=== PATIENT | male | born 1955 | race Caucasian/White ===

== ENCOUNTER 2018-03-11 11:29 | Inpatient (IN) | payer OTHER, MEDICARE ==
[2018-03-11 12:16] LABS: Glucose,Whole Blood 99 mg/dL (75-99)
[2018-03-11 12:33] LABS: Appearance,Urine Cloudy (Clear); Bilirubin,Urine Negative (Negative); Blood,Urine Small (Negative); Color,Urine Yellow; Glucose,Urine (UA) 4+ (Negative); Ketones,Urine Negative (Negative); Leukocyte Esterase,Urine Large (Negative); Mucus,Urine Rare /hpf; Nitrite,Urine Negative (Negative); Protein,Urine Negative (Negative); RBC,Urine 3 /hpf (0-5); Specific Gravity,Urine 1.008 (1.001-1.035); Urobilinogen,Urine <2.0 mg/dL (<2.0); WBC,Urine >182 /hpf (0-5)
[2018-03-11] MEDS ORDERED: VANCOMYCIN IV PER PHARMACY 1 EACH MISC MISCELLANE PRN (12:49)
[2018-03-11] MEDS ORDERED: VANCOMYCIN 2,250 MG in SODIUM CHLORIDE 0.9% 500 ML IVPB STA (13:00)
[2018-03-11] MEDS ORDERED: AMPICILLIN-SULBACTAM 3 GM in SODIUM CHLORIDE 0.9% 100 ML IVPB STA (13:03)
--- NOTE | 2018-03-11 13:30 | ED ---
General Adult HPI - General Chief complaint: Recheck/Abnormal Lab/Rx Stated complaint: High Blood sugar, poss infection in leg Time Seen by Provider: 03/11/18 12:33 Source: patient Mode of arrival: wheelchair Limitations: no limitations - History of Present Illness Initial comments: This 63-year-old white male presents with several complaints. He states that his blood sugar has been running high recently and was in the 300s for the past several days. Today, it was 478. He did take his home insulin with a sliding scale and it has come down by the time he arrives to the emergency department. He also relates that he has been having leg swelling and redness bilaterally but much worse on the left side. He relates that this is been a problem over the past 2 months but significantly worse over the past 3 days. This is been losing a yellowish drainage. He has significant leg swelling as well. He also complains of having a sore under his right axilla over the past 5 days but this started draining a couple of days ago. Denies any fevers but has had some chills. He denies any chest pain, shortness of breath, or abdominal pain. He denies any other complaints or modifying factors. - Related Data Home Medications Medication Instructions Recorded Confirmed ARIPiprazole [Abilify] 2.5 mg PO HS 08/03/15 03/11/18 Ibuprofen [Motrin] 600 mg PO TID 08/03/15 03/11/18 Insulin Aspart [NovoLOG] 30 unit SQ AC-TID 08/03/15 03/11/18 Lisinopril [Zestril] 20 mg PO BID 08/03/15 03/11/18 buPROPion HCL [Wellbutrin] 100 mg PO BID 08/03/15 03/11/18 Atorvastatin [Lipitor] 20 mg PO HS 03/11/18 03/11/18 Gabapentin [Neurontin] 300 mg PO TID 03/11/18 03/11/18 Insulin Glargine [Lantus] 55 unit SQ DAILY 03/11/18 03/11/18 Latanoprost [Xalatan 0.005%] 1 drop BOTH EYES HS 03/11/18 03/11/18 Lidocaine 5% Patch [Lidoderm] 1 patch TOPICAL DAILY 03/11/18 03/11/18 Oxybutynin Chloride [Ditropan XL] 5 mg PO DAILY 03/11/18 03/11/18 Potassium Chloride [K-Tab ER] 10 meq PO DAILY 03/11/18 03/11/18 Terazosin [Hytrin] 2 mg PO HS 03/11/18 03/11/18 Allergies Allergy/AdvReac Type Severity Reaction Status Date / Time metformin Allergy Unknown Abdominal Verified 03/11/18 14:17 Pain and Nausea metformin HCl Allergy Unknown Abdominal Verified 03/11/18 14:17 [From Glucophage] Pain and Nausea Review of Systems ROS Statement: Those systems with pertinent positive or pertinent negative responses have been documented in the HPI. ROS Other: All systems not noted in ROS Statement are negative. Past Medical History Past Medical History: Cancer, Diabetes Mellitus, GERD/Reflux, Hypertension Additional Past Medical History / Comment(s): CHRONIC LYMPHOCYTIC LEUKEMIA, BACK AND HIP PAIN, FREQUENT URINATION, OCCASIONAL SOB., HAVING DIARRHEA. History of Any Multi-Drug Resistant Organisms: None Reported Past Surgical History: Joint Replacement Additional Past Surgical History / Comment(s): TOTAL LEFT HIP. Past Anesthesia/Blood Transfusion Reactions: No Reported Reaction Past Psychological History: Depression Smoking Status: Current some day smoker Past Alcohol Use History: Rare Past Drug Use History: Marijuana - Past Family History Mother Family Medical History: No Reported History General Exam - General Exam Comments Initial Comments: GENERAL: The patient is well nourished and well hydrated. VITAL SIGNS: Heart rate, blood pressure, respiratory rate reviewed as recorded in nurse's notes. EYES: Pupils are round and reactive. Extraocular movements are intact. No conjunctival / lid redness or swelling. ENT: No external evidence of injury, swelling, or ecchymosis. Airway is patent. Throat is clear. NECK: Nontender. No swelling or evidence of injury. No subcutaneous emphysema. Trachea is midline. No thyroid mass. HEART: Regular rate and rhythm. Good peripheral pulses. Bilateral lower extremity edema noted. LUNGS/CHEST: Breath sounds clear and equal bilaterally. No rales, rhonchi, or wheezes. No ecchymosis, subcutaneous emphysema, or tenderness. ABDOMEN: Abdomen soft without tenderness. No palpable masses or organomegaly. No peritoneal signs. No abdominal wall swelling or ecchymosis. EXTREMITIES: No extremity tenderness. Normal muscle tone and function. No thoracolumbar tenderness. NEUROLOGIC: Sensation is grossly intact. Cranial nerve exam reveals face is symmetrical, tongue is midline, speech is clear. SKIN: There is significant swelling noted to bilateral lower extremities. There is significant erythema with yellowish drainage noted from the mid tibia distally into the ankle on the left leg. There is several small ulcerative lesions noted to the lateral legs. There is only mild erythema noted to the right leg. There is also a slightly draining lesion noted to the right axillary area. There is no swelling identified. There is only minimal erythema. PSYCHIATRIC: Alert and oriented. Appropriate behavior and judgment. Limitations: no limitations Course Vital Signs 03/11/18 03/11/18 12:10 14:45 Temperature 98.1 F Pulse Rate 88 77 Respiratory 20 18 Rate Blood Pressure 121/68 122/61 O2 Sat by Pulse 99 96 Oximetry Medical Decision Making - Medical Decision Making The patient was seen and examined. All diagnostics are reviewed. An IV is started and he is given some Unasyn and vancomycin. It does appear that he has cellulitis of his left lower extremity which is fairly significant and to a lesser degree on the right lower extremity. It is felt as though he would require inpatient treatment with IV antibiotics in this regard. The laboratory does show significant leukocytosis however he states that this is normal for him as he does have chronic lymphocytic leukemia. He is not currently in a treatment stage IV it. He said that white blood cell count of 38,000 is at the low end of normal for him. The case is discussed with Sandro from internal medicine and the patient is accepted for admission. IV antibiotics will be continued. It also appears that he does have urinary tract infection. It appears that he has very slight draining abscess of the right axillary region and it is not felt as any further treatment is necessary in this regard. - Lab Data Result diagrams: 03/11/18 13:25 03/11/18 13:25 Lab Results 03/11/18 03/11/18 03/11/18 Range/Units 12:12 12:15 13:25 WBC 38.2 H* (3.8-10.6) k/uL RBC 4.24 L (4.30-5.90) m/uL Hgb 13.0 (13.0-17.5) gm/dL Hct 38.2 L (39.0-53.0) % MCV 90.1 (80.0-100.0) fL MCH 30.7 (25.0-35.0) pg MCHC 34.1 (31.0-37.0) g/dL RDW 14.5 (11.5-15.5) % Plt Count 161 (150-450) k/uL Neutrophils % (Manual) 4 % Band Neutrophils % 1 % Lymphocytes % (Manual) 96 % Neutrophils # (Manual) 1.90 (1.3-7.7) k/uL Lymphocytes # (Manual) 36.67 H (1.0-4.8) k/uL Nucleated RBCs 0 (0-0) /100 WBC Differential Comment Manual Slide Review Performed PT (9.0-12.0) sec INR (<1.2) APTT (22.0-30.0) sec Sodium (137-145) mmol/L Potassium (3.5-5.1) mmol/L Chloride (98-107) mmol/L Carbon Dioxide (22-30) mmol/L Anion Gap mmol/L BUN (9-20) mg/dL Creatinine (0.66-1.25) mg/dL Est GFR (CKD-EPI)AfAm (>60 ml/min/1.73 sqM) Est GFR (CKD-EPI)NonAf (>60 ml/min/1.73 sqM) Glucose (74-99) mg/dL POC Glucose (mg/dL) 99 (75-99) mg/dL POC Glu Software Configuration Manager ID Jesu Rolle Plasma Lactic Acid Hans (0.7-2.0) mmol/L Calcium (8.4-10.2) mg/dL Phosphorus (2.5-4.5) mg/dL Magnesium (1.6-2.3) mg/dL Total Bilirubin (0.2-1.3) mg/dL AST (17-59) U/L ALT (21-72) U/L Alkaline Phosphatase (38-126) U/L Troponin I (0.000-0.034) ng/mL Total Protein (6.3-8.2) g/dL Albumin (3.5-5.0) g/dL Urine Color Yellow Urine Appearance Cloudy (Clear) Urine pH 5.0 (5.0-8.0) Ur Specific Cora 1.008 (1.001-1.035) Urine Protein Negative (Negative) Urine Glucose (UA) 4+ H (Negative) Urine Ketones Negative (Negative) Urine Blood Small H (Negative) Urine Nitrite Negative (Negative) Urine Bilirubin Negative (Negative) Urine Urobilinogen <2.0 (<2.0) mg/dL Ur Leukocyte Esterase Large H (Negative) Urine RBC 3 (0-5) /hpf Urine WBC >182 H (0-5) /hpf Urine WBC Clumps Many H (None) /hpf Urine Mucus Rare H (None) /hpf Acetone, Qual (Negative) 03/11/18 03/11/18 03/11/18 Range/Units 13:25 13:25 13:25 WBC (3.8-10.6) k/uL RBC (4.30-5.90) m/uL Hgb (13.0-17.5) gm/dL Hct (39.0-53.0) % MCV (80.0-100.0) fL MCH (25.0-35.0) pg MCHC (31.0-37.0) g/dL RDW (11.5-15.5) % Plt Count (150-450) k/uL Neutrophils % (Manual) % Band Neutrophils % % Lymphocytes % (Manual) % Neutrophils # (Manual) (1.3-7.7) k/uL Lymphocytes # (Manual) (1.0-4.8) k/uL Nucleated RBCs (0-0) /100 WBC Differential Comment Manual Slide Review PT 10.4 (9.0-12.0) sec INR 1.1 (<1.2) APTT 22.8 (22.0-30.0) sec Sodium 138 (137-145) mmol/L Potassium 3.7 (3.5-5.1) mmol/L Chloride 104 (98-107) mmol/L Carbon Dioxide 24 (22-30) mmol/L Anion Gap 10 mmol/L BUN 28 H (9-20) mg/dL Creatinine 1.00 (0.66-1.25) mg/dL Est GFR (CKD-EPI)AfAm >90 (>60 ml/min/1.73 sqM) Est GFR (CKD-EPI)NonAf 80 (>60 ml/min/1.73 sqM) Glucose 101 H (74-99) mg/dL POC Glucose (mg/dL) (75-99) mg/dL POC Glu Software Configuration Manager ID Plasma Lactic Acid Hans 1.7 (0.7-2.0) mmol/L Calcium 8.9 (8.4-10.2) mg/dL Phosphorus 3.4 (2.5-4.5) mg/dL Magnesium 1.9 (1.6-2.3) mg/dL Total Bilirubin 0.9 (0.2-1.3) mg/dL AST 41 (17-59) U/L ALT 57 (21-72) U/L Alkaline Phosphatase 109 (38-126) U/L Troponin I (0.000-0.034) ng/mL Total Protein 5.5 L (6.3-8.2) g/dL Albumin 3.3 L (3.5-5.0) g/dL Urine Color Urine Appearance (Clear) Urine pH (5.0-8.0) Ur Specific Cora (1.001-1.035) Urine Protein (Negative) Urine Glucose (UA) (Negative) Urine Ketones (Negative) Urine Blood (Negative) Urine Nitrite (Negative) Urine Bilirubin (Negative) Urine Urobilinogen (<2.0) mg/dL Ur Leukocyte Esterase (Negative) Urine RBC (0-5) /hpf Urine WBC (0-5) /hpf Urine WBC Clumps (None) /hpf Urine Mucus (None) /hpf Acetone, Qual Negative (Negative) 03/11/18 Range/Units 13:25 WBC (3.8-10.6) k/uL RBC (4.30-5.90) m/uL Hgb (13.0-17.5) gm/dL Hct (39.0-53.0) % MCV (80.0-100.0) fL MCH (25.0-35.0) pg MCHC (31.0-37.0) g/dL RDW (11.5-15.5) % Plt Count (150-450) k/uL Neutrophils % (Manual) % Band Neutrophils % % Lymphocytes % (Manual) % Neutrophils # (Manual) (1.3-7.7) k/uL Lymphocytes # (Manual) (1.0-4.8) k/uL Nucleated RBCs (0-0) /100 WBC Differential Comment Manual Slide Review PT (9.0-12.0) sec INR (<1.2) APTT (22.0-30.0) sec Sodium (137-145) mmol/L Potassium (3.5-5.1) mmol/L Chloride (98-107) mmol/L Carbon Dioxide (22-30) mmol/L Anion Gap mmol/L BUN (9-20) mg/dL Creatinine (0.66-1.25) mg/dL Est GFR (CKD-EPI)AfAm (>60 ml/min/1.73 sqM) Est GFR (CKD-EPI)NonAf (>60 ml/min/1.73 sqM) Glucose (74-99) mg/dL POC Glucose (mg/dL) (75-99) mg/dL POC Glu Software Configuration Manager ID Plasma Lactic Acid Hans (0.7-2.0) mmol/L Calcium (8.4-10.2) mg/dL Phosphorus (2.5-4.5) mg/dL Magnesium (1.6-2.3) mg/dL Total Bilirubin (0.2-1.3) mg/dL AST (17-59) U/L ALT (21-72) U/L Alkaline Phosphatase (38-126) U/L Troponin I <0.012 (0.000-0.034) ng/mL Total Protein (6.3-8.2) g/dL Albumin (3.5-5.0) g/dL Urine Color Urine Appearance (Clear) Urine pH (5.0-8.0) Ur Specific Cora (1.001-1.035) Urine Protein (Negative) Urine Glucose (UA) (Negative) Urine Ketones (Negative) Urine Blood (Negative) Urine Nitrite (Negative) Urine Bilirubin (Negative) Urine Urobilinogen (<2.0) mg/dL Ur Leukocyte Esterase (Negative) Urine RBC (0-5) /hpf Urine WBC (0-5) /hpf Urine WBC Clumps (None) /hpf Urine Mucus (None) /hpf Acetone, Qual (Negative) Disposition Clinical Impression: Bilateral lower leg cellulitis, Hyperglycemia, Diabetes, UTI (urinary tract infection), Chronic lymphocytic leukemia, Abscess of right axilla Disposition: ADMITTED IP TO THIS HOSP Condition: Fair Is patient prescribed a controlled substance at d/c from ED?: No Referrals: [facility] [Primary Care Provider] - 1-2 days Time of Disposition: 15:17 Decision Date: 03/11/18 Decision Time: 15:17
[2018-03-11 13:51] LABS: HCT 38.2 % (39.0-53.0); MCH 30.7 pg (25.0-35.0); MCHC 34.1 g/dL (31.0-37.0); MCV 90.1 fL (80.0-100.0); Mean Platelet Volume 7.1; Platelet Count 161 k/uL (150-450); RBC 4.24 m/uL (4.30-5.90); RDW 14.5 % (11.5-15.5)
[2018-03-11 13:54] LABS: WBC 38.2 k/uL (3.8-10.6)
[2018-03-11 13:55] LABS: ALT 57 U/L (21-72); AST 41 U/L (17-59); Albumin 3.3 g/dL (3.5-5.0); Alkaline Phosphatase 109 U/L (38-126); Anion Gap 10 mmol/L; Blood Urea Nitrogen 28 mg/dL (9-20); Calcium 8.9 mg/dL (8.4-10.2); Carbon Dioxide 24 mmol/L (22-30); Chloride 104 mmol/L (98-107); Glucose 101 mg/dL (74-99); Magnesium 1.9 mg/dL (1.6-2.3); Phosphorus 3.4 mg/dL (2.5-4.5); Potassium 3.7 mmol/L (3.5-5.1); Sodium 138 mmol/L (137-145); Total Bilirubin 0.9 mg/dL (0.2-1.3); Total Protein 5.5 g/dL (6.3-8.2)
[2018-03-11 13:57] LABS: INR 1.1 (<1.2); Partial Thromboplastin Time 22.8 sec (22.0-30.0); Prothrombin Time 10.4 sec (9.0-12.0)
[2018-03-11 14:16] LABS: Band Neutrophils % 1 %; Lymphocytes # (M) 36.67 k/uL (1.0-4.8); Neutrophils % (M) 4 %; Nucleated Red Blood Cells 0 /100 WBC (0-0); Total Cells Counted 200
[2018-03-11] MEDS ORDERED: ACETAMINOPHEN TAB 325 MG TAB PO PRN (15:17)
[2018-03-11] MEDS ORDERED: ONDANSETRON 4 MG/2 ML VIAL IVP PRN (15:17)
[2018-03-11] MEDS ORDERED: NALOXONE 0.4 MG/ML 1 ML VIAL IV PRN (15:17)
[2018-03-11 16:37] VITALS: BMI 46.5
[2018-03-11] MEDS: GABAPENTIN 300 MG CAP PO SCH ×2 (16:49→22:28)
[2018-03-11 17:29] LABS: Glucose,Whole Blood 214 mg/dL (75-99)
[2018-03-11] MEDS ORDERED: INSULIN ASPART 100 UNIT/ML 1 ML 10 ML VIAL SQ SCH (17:30)
[2018-03-11] MEDS: AMPICILLIN-SULBACTAM 3 GM in SODIUM CHLORIDE 0.9% 100 ML IVPB SCH ×2 (17:38→23:01)
[2018-03-11] MEDS: IBUPROFEN 600 MG TAB PO SCH ×3 (17:39→22:32)
[2018-03-11 22:19] LABS: Glucose,Whole Blood 252 mg/dL (75-99)
[2018-03-11] MEDS: LISINOPRIL 20 MG TAB PO SCH (22:27)
[2018-03-11] MEDS: ATORVASTATIN 20 MG TAB PO SCH (22:27)
[2018-03-11] MEDS: DOXAZOSIN 2 MG TAB PO SCH (22:27)
[2018-03-11] MEDS: ARIPiprazole 5 MG TAB PO SCH (22:27)
[2018-03-11] MEDS: buPROPion 100 MG TAB PO SCH (22:28)
[2018-03-11] MEDS: LATANOPROST 0.005% OPHTH DROPS 2.5 ML BTL BOTH EYES SCH (22:31)
[2018-03-11] MEDS ORDERED: INSULIN ASPART 100 UNIT/ML 1 ML 10 ML VIAL SQ ONE (22:43)
[2018-03-12] MEDS ORDERED: ALPRAZolam 0.25 MG TAB PO PRN (01:16)
[2018-03-12] MEDS ORDERED: TEMAZEPAM 15 MG CAP PO PRN (01:16)
--- NOTE | 2018-03-12 04:15 | HP ---
HISTORY AND PHYSICAL DATE OF SERVICE: 03/11/2018. CHIEF COMPLAINT: Bilateral leg ulcers. HISTORY OF PRESENT ILLNESS: This 63-year-old gentleman with a past medical history of multiple medical problems including diabetes, GERD, hypertension, chronic lymphoid leukemia, being followed by Dr. Escobar in the [facility] in the outpatient setting, was complaining of bilateral legs ulcers, left more than right for the last several weeks. The patient initially had blisters and subsequently got worse. The patient also noted to have a draining abscess in the right axilla and the patient also having uncontrolled diabetes mellitus. Sugars were uncontrolled and hemoglobin A1c was 7 9. The patient came to [facility] and admitted for further evaluation and treatment. The white count was elevated at 38.9 indicating chronic lymphatic leukemia. There is no history of fever, rigors. No history of headache, loss of consciousness, seizures. Patient also had features of UTI also. PAST MEDICAL HISTORY: History of diabetes type 2, GERD, hypertension, sleep apnea, history of chronic lymphocytic leukemia, history of DJD, history of depression. MEDICATIONS: Prior to admission include home medications are: 1. Wellbutrin 100 mg p.o. b.i.d. 2. Hytrin 2 mg q.h.s. 3. Potassium chloride 10 mg p.o. daily. 4. Ditropan XL 5 mg p.o. 5. Zestril 20 mg p.o. b.i.d. 6. Lidoderm patch 5% 1.5 daily. 7. Xalatan 0.05% 1 drop both eyes q.h.s. 8. Lantus 55 units subcu daily. 9. NovoLog 30 units subcu a.c. t.i.d. 10.Motrin 600 mg t.i.d. 11.Neurontin 300 mg t.i.d. 12.Lipitor 20 mg q.h.s. 13.Abilify 2.5 mg q.h.s. ALLERGIES: METFORMIN. FAMILY HISTORY: History of hypertension in the family. SOCIAL HISTORY: Previous history of smoking. Patient THC. REVIEW OF SYSTEMS: ENT: No diminished hearing or vision. CARDIOVASCULAR: No angina or palpitations. RESPIRATORY: No cough or hemoptysis. GI: No nausea or vomiting. no dysuria or retention. Nervous system: No numbness or weakness. ALLERGY: No asthma or hay fever. MUSCULOSKELETAL: As mentioned earlier. HEMATOLOGY/ONCOLOGY: No history of anemia. ENDOCRINE: Diabetes. CONSTITUTIONAL: As mentioned earlier. DERMATOLOGY negative. RHEUMATOLOGY: Negative. PSYCHIATRY as mentioned earlier. PHYSICAL EXAMINATION: GENERAL: The patient is alert and oriented times three. VITAL SIGNS: Pulse is 92, blood pressure 137/73, respiration 18, temperature 97.7, pulse ox 97% on room air. HEENT: Conjunctivae normal. Oral mucosa moist. NECK is obese. CARDIOVASCULAR: S1, S2 muffled. No S3, no S4. RESPIRATORY: Breath sounds diminished in the bases. A few scattered rhonchi. No crackles. ABDOMEN: Soft, obese, nontender. No mass. LEGS: Significant cellulitis and erythema cellulitis present discharge draining on the left side. Minimal cellulitis of the right leg. Significant abscess in the right axilla draining purulent discharge also present. NERVOUS SYSTEM: Higher functions as mentioned earlier. Moves all four extremities. No focal motor or sensory deficits. Lymphatics: No lymph nodes palpable in the neck, axillae or groin. Skin: No ulcer, rashes or bleeding. LABS: WBC is 38.9. hemoglobin 13, glucose 214. ASSESSMENT: 1. Acute left leg cellulitis and as well as right axillary abscess. 2. Diabetes type 2 uncontrolled. 3. Chronic lymphoid leukemia. 4. Urinary tract infection. 5. Obesity with body mass index 46.5. 6. Gastroesophageal reflux disease. 7. Hypertension. 8. Sleep apnea on CPAP. 9. Degenerative joint disease. 10.History of depression. 11.Remote history of nicotine dependence. RECOMMENDATIONS AND DISCUSSION: This 63-year-old gentleman who presented with multiple complex medical issues, we will monitor the patient closely, continue the current medications, management and symptomatic treatment. We will initiate broad-spectrum IV antibiotics. IV Zosyn and vancomycin will be given. Otherwise, monitor blood sugars closely. Mealtime insulin also will be added. DVT prophylaxis. Resume the home medications. Prognosis guarded because of multiple complex medical issues. Discussed at length with patient and further recommendations to follow. We will closely follow with Infectious Disease. A copy of dictation forwarded to Dr. Escobar who is the primary physician. MMODL / IJN: [id number] /
[2018-03-12] MEDS: VANCOMYCIN 2,000 MG in SODIUM CHLORIDE 0.9% 500 ML IVPB SCH ×2 (05:20→17:46)
[2018-03-12 07:21] LABS: Glucose,Whole Blood 203 mg/dL (75-99)
[2018-03-12] MEDS ORDERED: INSULIN ASPART 100 UNIT/ML 1 ML 10 ML VIAL SQ SCH (07:30)
[2018-03-12] MEDS: INSULIN DETEMIR 100 UNIT/ML 10 ML VIAL SQ SCH (08:04)
[2018-03-12] MEDS: INSULIN ASPART 100 UNIT/ML 1 ML 10 ML VIAL SQ SCH ×6 (08:05→21:15)
[2018-03-12] MEDS: PIPERACILLIN-TAZOBACTAM 3.375 GM in DEXTROSE/WATER 1 50ML.BAG IVPB SCH ×3 (08:06→23:24)
[2018-03-12] MEDS: LIDOCAINE 5% PATCH TOPICAL SCH (08:09)
[2018-03-12] MEDS: ENOXAPARIN 40 MG/0.4 ML SYRINGE SQ SCH (08:10)
[2018-03-12] MEDS: GABAPENTIN 300 MG CAP PO SCH ×3 (08:11→21:15)
[2018-03-12] MEDS: buPROPion 100 MG TAB PO SCH ×2 (08:11→21:15)
[2018-03-12] MEDS: LISINOPRIL 20 MG TAB PO SCH ×2 (08:12→21:15)
[2018-03-12] MEDS: OXYBUTYNIN XL 5 MG TAB.ER.24 PO SCH (08:12)
[2018-03-12] MEDS: POTASSIUM CHLORIDE ER 10 MEQ TAB.ER.PRT PO SCH (08:12)
[2018-03-12] MEDS: IBUPROFEN 600 MG TAB PO SCH ×3 (08:30→21:15)
[2018-03-12] MEDS ORDERED: PANTOPRAZOLE 40 MG/10 ML VIAL IV SCH (09:00)
[2018-03-12 12:03] LABS: Glucose,Whole Blood 260 mg/dL (75-99)
[2018-03-12 12:29] LABS: Hemoglobin A1C 10.9 % (4.0-6.0)
--- NOTE | 2018-03-12 13:45 | P.GSCN ---
<Louise Cornejo - Last Filed: 03/12/18 14:08> History of Present Illness Consult date: 03/12/18 Reason for Consult: Left axillary questionable abscess History of present illness: 63-year-old male who presented on day admission to the emergency room to be evaluated for symptomatic hypoglycemia. Additionally patient had reportedly been experiencing increase edema to the bilateral lower legs left greater than the right. Patient has multiple medical issues. Indicated that he did develop a sore under right axilla noted 5 days prior. Stated that he noted over the last 48 hours became more tender and started draining. The attending has requested a surgical eval for the right axilla possible abscess. Patient has been seen by infectious disease dr bustamante . Which has obtained wound cultures to the right axilla. Patient denies any prior episodes. Patient stated he became concerned when the area became more tender and started draining "yellowish drainage slight odor. Patient came into the emergency room initially with an elevated blood sugar. Patient stated at home he checked his blood sugar was 478 took his morning dose of insulin blood sugar came down when he arrived emergency room . Patient states his blood sugars have been fairly controlled hemoglobin A1c this admission was noted to be 10.9 Past medical history for chronic lymphocytic leukemia, chronic low her hip and back pain, depressive disorder, type 2 diabetes insulin requiring, obstructive sleep apnea with CPAP therapy Past surgical history left total hip otherwise unremarkable every day smoker Past Medical History Past Medical History: Cancer, Diabetes Mellitus, GERD/Reflux, Hypertension, Sleep Apnea/CPAP/BIPAP Additional Past Medical History / Comment(s): CHRONIC LYMPHOCYTIC LEUKEMIA, BACK AND HIP PAIN, FREQUENT URINATION, OCCASIONAL SOB., HAVING DIARRHEA. Patient uses CPAP History of Any Multi-Drug Resistant Organisms: None Reported Past Surgical History: Joint Replacement Additional Past Surgical History / Comment(s): TOTAL LEFT HIP. Past Anesthesia/Blood Transfusion Reactions: No Reported Reaction Past Psychological History: Depression Additional Psychological History / Comment(s): patient lives at home alone Smoking Status: Former smoker Past Alcohol Use History: Rare Additional Past Alcohol Use History / Comment(s): SMOKES 3-5 CIGARETTES PER WEEK. STARTED SMOKING AGE 16. Past Drug Use History: Marijuana Additional Drug Use History / Comment(s): STATES LAST SMOKED MARIJUANA 1 WEEK AGO. STATES MARIJUANA CARD - Past Family History Mother Family Medical History: Hypertension Medications and Allergies Home Medications Medication Instructions Recorded Confirmed Type ARIPiprazole [Abilify] 2.5 mg PO HS 08/03/15 03/11/18 History Ibuprofen [Motrin] 600 mg PO TID 08/03/15 03/11/18 History Insulin Aspart [NovoLOG] 30 unit SQ AC-TID 08/03/15 03/11/18 History Lisinopril [Zestril] 20 mg PO BID 08/03/15 03/11/18 History buPROPion HCL [Wellbutrin] 100 mg PO BID 08/03/15 03/11/18 History Atorvastatin [Lipitor] 20 mg PO HS 03/11/18 03/11/18 History Gabapentin [Neurontin] 300 mg PO TID 03/11/18 03/11/18 History Insulin Glargine [Lantus] 55 unit SQ DAILY 03/11/18 03/11/18 History Latanoprost [Xalatan 0.005%] 1 drop BOTH EYES HS 03/11/18 03/11/18 History Lidocaine 5% Patch [Lidoderm] 1 patch TOPICAL DAILY 03/11/18 03/11/18 History Oxybutynin Chloride [Ditropan XL] 5 mg PO DAILY 03/11/18 03/11/18 History Potassium Chloride [K-Tab ER] 10 meq PO DAILY 03/11/18 03/11/18 History Terazosin [Hytrin] 2 mg PO HS 03/11/18 03/11/18 History Allergies Allergy/AdvReac Type Severity Reaction Status Date / Time metformin Allergy Unknown Abdominal Verified 03/11/18 14:17 Pain and Nausea metformin HCl Allergy Unknown Abdominal Verified 03/11/18 14:17 [From Glucophage] Pain and Nausea Surgical - Exam Vital Signs Temp Pulse Resp BP Pulse Ox 98.1 F 88 20 121/68 99 03/11/18 12:10 03/11/18 12:10 03/11/18 12:10 03/11/18 12:10 03/11/18 12:10 GENERAL APPEARANCE: 63 year old male obese patient is alert, oriented, in no acute distress. VITAL SIGNS: Reviewed HEENT: Head is normocephalic and atraumatic. Pupils are equal and reactive. The nares are patent. Oropharynx is clear without lesions. NECK: Supple without lymphadenopathy. Traches midline. HEART: S1, S2. Regular rate and rhythm. Denying chest pain LUNGS: No crackles or wheezes are heard. No cough no shortness of breath ABDOMEN: Soft, obese nontender, nondistended large umbilical hernia no evidence of incarceration with good bowel sounds. No peritoneal signs. No palpable organomegaly or masses. EXTREMITIES: Bilateral lower extremities positive edema noted with significant erythema noted to the right leg greater than the left. Leaking serous drainage Right axilla area draining a small amount yellowish drainage with palpitation to the area. Slight odor noted. Right axilla area red non-firm mild erythema NEUROLOGICAL: No focal deficits. Strength and sensation are grossly intact. Results - Labs 03/11/18 13:25 03/11/18 13:25 Abnormal Lab Results - Last 24 Hours (Table) 03/11/18 03/11/18 03/11/18 Range/Units 13:25 13:25 17:05 WBC 38.2 H* (3.8-10.6) k/uL RBC 4.24 L (4.30-5.90) m/uL Hct 38.2 L (39.0-53.0) % Lymphocytes # (Manual) 36.67 H (1.0-4.8) k/uL BUN 28 H (9-20) mg/dL Glucose 101 H (74-99) mg/dL POC Glucose (mg/dL) 214 H (75-99) mg/dL Total Protein 5.5 L (6.3-8.2) g/dL Albumin 3.3 L (3.5-5.0) g/dL 03/11/18 03/12/18 03/12/18 Range/Units 22:00 07:09 12:01 WBC (3.8-10.6) k/uL RBC (4.30-5.90) m/uL Hct (39.0-53.0) % Lymphocytes # (Manual) (1.0-4.8) k/uL BUN (9-20) mg/dL Glucose (74-99) mg/dL POC Glucose (mg/dL) 252 H 203 H 260 H (75-99) mg/dL Total Protein (6.3-8.2) g/dL Albumin (3.5-5.0) g/dL Microbiology - Last 24 Hours (Table) 03/12/18 01:05 Wound Culture - Preliminary Leg - Left 03/12/18 01:05 Wound Culture - Preliminary Leg - Right 03/12/18 01:05 Wound Culture - Preliminary Axilla - Right 03/11/18 13:09 Urine Culture - Preliminary Urine,Clean Catch Diabetes panel 03/11/18 Range/Units 13:25 Sodium 138 (137-145) mmol/L Potassium 3.7 (3.5-5.1) mmol/L Chloride 104 (98-107) mmol/L Carbon Dioxide 24 (22-30) mmol/L BUN 28 H (9-20) mg/dL Creatinine 1.00 (0.66-1.25) mg/dL Glucose 101 H (74-99) mg/dL Calcium 8.9 (8.4-10.2) mg/dL AST 41 (17-59) U/L ALT 57 (21-72) U/L Alkaline Phosphatase 109 (38-126) U/L Total Protein 5.5 L (6.3-8.2) g/dL Albumin 3.3 L (3.5-5.0) g/dL Calcium panel 03/11/18 Range/Units 13:25 Calcium 8.9 (8.4-10.2) mg/dL Phosphorus 3.4 (2.5-4.5) mg/dL Albumin 3.3 L (3.5-5.0) g/dL Pituitary panel 03/11/18 Range/Units 13:25 Sodium 138 (137-145) mmol/L Potassium 3.7 (3.5-5.1) mmol/L Chloride 104 (98-107) mmol/L Carbon Dioxide 24 (22-30) mmol/L BUN 28 H (9-20) mg/dL Creatinine 1.00 (0.66-1.25) mg/dL Glucose 101 H (74-99) mg/dL Calcium 8.9 (8.4-10.2) mg/dL Adrenal panel 03/11/18 Range/Units 13:25 Sodium 138 (137-145) mmol/L Potassium 3.7 (3.5-5.1) mmol/L Chloride 104 (98-107) mmol/L Carbon Dioxide 24 (22-30) mmol/L BUN 28 H (9-20) mg/dL Creatinine 1.00 (0.66-1.25) mg/dL Glucose 101 H (74-99) mg/dL Calcium 8.9 (8.4-10.2) mg/dL Total Bilirubin 0.9 (0.2-1.3) mg/dL AST 41 (17-59) U/L ALT 57 (21-72) U/L Alkaline Phosphatase 109 (38-126) U/L Total Protein 5.5 L (6.3-8.2) g/dL Albumin 3.3 L (3.5-5.0) g/dL Assessment and Plan Assessment: Impression Present on admission right axilla redness positive tenderness yellowish drainage possible abscess Morbid obesity BMI 46 Bilateral lower extremity cellulitis Present on admission hyperglycemia Presented admission leukocytosis suspect due to Chronic lymphocytic leukemia History of sleep apnea, depressive disorder Present on admission umbilical hernia suspect chronic Plan Wound care per infectious disease Follow up on the pending wound culture from the right axilla Possible incision and drainage of the right axilla after eval Dr. Nathan Antibiotics per infectious disease Further surgical recommendations pending will follow with you Surgical consultation note dictated for dr nathan The above impression and plan of care have been discussed and directed by signing physician. Louise Cornejo nurse practitioner acting as scribe for signing physician. <Fabian Nathan - Last Filed: 03/12/18 16:55> Surgical - Exam Vital Signs Temp Pulse Resp BP Pulse Ox 98.1 F 88 20 121/68 99 03/11/18 12:10 03/11/18 12:10 03/11/18 12:10 03/11/18 12:10 03/11/18 12:10 Results - Labs 03/11/18 13:25 03/11/18 13:25 Abnormal Lab Results - Last 24 Hours (Table) 03/11/18 03/11/18 03/11/18 Range/Units 13:25 17:05 22:00 POC Glucose (mg/dL) 214 H 252 H (75-99) mg/dL Hemoglobin A1c 10.9 H (4.0-6.0) % 03/12/18 03/12/18 03/12/18 Range/Units 07:09 12:01 16:37 POC Glucose (mg/dL) 203 H 260 H 207 H (75-99) mg/dL Hemoglobin A1c (4.0-6.0) % Microbiology - Last 24 Hours (Table) 03/11/18 13:25 Blood Culture - Preliminary Blood No Growth after 24 hours 08/14/18 12:00 Wound Culture - Preliminary Axilla - Right 03/12/18 12:00 Anaerobic Culture - Preliminary Axilla - Right 03/12/18 01:05 Wound Culture - Preliminary Leg - Left 03/12/18 01:05 Wound Culture - Preliminary Leg - Right 03/12/18 01:05 Wound Culture - Preliminary Axilla - Right 03/11/18 13:09 Urine Culture - Preliminary Urine,Clean Catch Diabetes panel 03/11/18 Range/Units 13:25 Hemoglobin A1c 10.9 H (4.0-6.0) % Assessment and Plan Assessment: As above. Patient within abscess right axilla that spontaneously started draining 48 hours ago. Was seen by infectious disease who using blunt dissection opened the skin opening somewhat larger. Cultures are pending. No incision and drainage required at this time. Continue antibiotics. We'll follow with you.
--- NOTE | 2018-03-12 16:31 | PN ---
PROGRESS NOTE DATE OF SERVICE: 03/12/2018 This 63-year-old gentleman who was admitted with acute left leg cellulitis as well as right axillary abscess is being closely monitored at this time. The patient has been started on broad-spectrum IV antibiotics. Cultures are negative at this time. Past medical history reviewed. REVIEW OF SYSTEMS: CARDIOVASCULAR SYSTEM: S1, S2 muffled. RESPIRATORY SYSTEM: As mentioned earlier. GI: As mentioned earlier. : No dysuria or retention. NERVOUS SYSTEM: No numbness, weakness. CURRENT MEDICATIONS: Current medications are reviewed and include: 1. Tylenol 650 q.6 p.r.n. 2. [place] 5 mg q.6 p.r.n. 3. Xanax 0.25 t.i.d. 4. Abilify 2.5 mg at bedtime. 5. Lipitor 20 mg at bedtime. 6. Wellbutrin 100 mg p.o. b.i.d. 7. Cardura 2 mg at bedtime. 8. Lovenox 40 mg subcutaneously daily. 9. Neurontin 300 mg p.o. t.i.d. 10.Motrin 600 mg p.o. t.i.d. 11.NovoLog before meals and at bedtime. NovoLog 7 units before meals t.i.d. 12.Levemir 55 units daily. 13.Xalatan. 14.Lidoderm 1 patch daily. 15.Zestril 20 mg p.o. b.i.d. 16.Vancomycin. 17.Zofran. 18.Ditropan. 19.Zosyn IV. 20.Silvadene. 21.Restoril. PHYSICAL EXAMINATION: Patient is alert, oriented x3. Pulse 79, blood pressure 120/71, respiration 18, temperature 98.3, pulse ox 97% on room air. HEENT: Conjunctivae normal. Oral mucosa moist. NECK: No jugular venous distention. No carotid bruit. No lymph node enlargement. CARDIOVASCULAR SYSTEM: S1, S2 muffled. No S3. No S4. RESPIRATORY SYSTEM: Breath sounds diminished at the bases. No rhonchi. No crackles. ABDOMEN: Soft, non-tender. No mass palpable. LEGS: Bilateral leg cellulitis, left more than the right. Right axillary abscess also present expressing purulent secretions. LABS: WBC 38.2. Accu-Cheks 214, 252, 203 and 260. Acetone is negative. ASSESSMENT: 1. Acute left leg cellulitis as well as right axillary abscess. 2. Diabetes mellitus, type 2, uncontrolled, with no evidence of ketosis. 3. Chronic lymphoid leukemia. 4. Urinary tract infection. 5. Obesity with a body mass index of 46.5. 6. Gastroesophageal reflux disease. 7. Hypertension. 8. Sleep apnea, on CPAP. 9. Degenerative joint disease. 10.History of depression. 11.Remote history of nicotine dependence. RECOMMENDATIONS AND DISCUSSION: I recommend to continue current medication, continue with the monitoring, symptomatic treatment. I recommend continuing with the broad-spectrum IV antibiotics. Follow the cultures. DVT prophylaxis. Monitor blood sugars closely. Increase the dose of mealtime insulin and continue to monitor. Guarded prognosis. Further recommendations to follow. MMODL / IJN: [id number] /
[2018-03-12] MEDS: HYDROcodone/APAP 5-325MG 1 EACH TAB PO PRN (16:34)
[2018-03-12 16:46] LABS: Glucose,Whole Blood 207 mg/dL (75-99)
[2018-03-12 20:43] LABS: Glucose,Whole Blood 208 mg/dL (75-99)
[2018-03-12] MEDS: DOXAZOSIN 2 MG TAB PO SCH (21:15)
[2018-03-12] MEDS: LATANOPROST 0.005% OPHTH DROPS 2.5 ML BTL BOTH EYES SCH (21:15)
[2018-03-12] MEDS: ARIPiprazole 5 MG TAB PO SCH (21:15)
[2018-03-12] MEDS: ATORVASTATIN 20 MG TAB PO SCH (21:15)
--- NOTE | 2018-03-12 22:07 | CONS ---
CONSULTATION DATE OF SERVICE: 03/12/2018 REASON FOR CONSULTATION: 1. Left lower extremity wound and cellulitis. 2. Right axillary abscess. HISTORY OF PRESENT ILLNESS: The patient is a 63-year-old morbidly obese male presenting to the ER at [facility] with chief complaints of his blood sugar running high, recently in the 300s to 400s. The patient apparently also has bilateral lower extremity swelling and redness, worse on the left side, that has been going on for almost 2 months, with worsening over the last 3 days. The patient does have some dull aching pain to the left leg, intensity of about 5 to 10 and no radiation. There is some clear drainage from it, at times foul-smelling. The patient also has been complaining of a sore under his right axilla which he noticed for about 5 days, then it started to drain purulent material. He did have some dull aching pain to that site, 5 out of 10, and no radiation. The patient did have some chills but denies any high-grade fever. With these multiple symptoms, the patient has been evaluated by the ER physician. Patient on arrival in the ER was afebrile. The patient's white count was elevated at 8.2 and his kidney function was normal at 1.0. The patient did have cultures obtained from the ankle and blood culture which are currently pending. Infectious Disease was consulted for further recommendations regarding antibiotic therapy. REVIEW OF SYSTEMS: CONSTITUTIONAL: Positive for weakness and chills. EYES: No complaint. ENT: No complaint. RESPIRATORY: No complaint. CARDIOVASCULAR: No complaint. GENITOURINARY: No complaint. GASTROINTESTINAL: No complaint. MUSCULOSKELETAL: No complaint. INTEGUMENTARY: As per HPI. PSYCHOLOGICAL: No complaint. ENDOCRINE: No complaint. NEUROLOGICAL: No complaint. PAST MEDICAL HISTORY: 1. Diabetes mellitus. 2. Gastroesophageal reflux disease. 3. Hypertension. 4. Sleep apnea. 5. Chronic lymphocytic leukemia. 6. Chronic back pain. PAST SURGICAL HISTORY: Left hip replacement. SOCIAL HISTORY: Remote history of smoking. No drinking. Admits to marijuana use. FAMILY HISTORY: Mother with history of hypertension. ALLERGIES: METFORMIN. CURRENT MEDICATIONS: 1. Tylenol. 2. [place]. 3. Xanax. 4. Abilify. 5. Lipitor. 6. Wellbutrin. 7. Cardura. 8. Lovenox. 9. Neurontin. 10.Motrin. 11.NovoLog. 12.Levemir. 13.Lidocaine. 14.Zestril. 15.Vancomycin, Pharmacy to dose. 16.Narcan. 17.Zofran. 18.Zosyn 3.375 grams q.8 hours. 19.Restoril. PHYSICAL EXAMINATION: Blood pressure is 133/77 with a pulse of 84, temperature 98.1. He is 97% on room air. General description is a middle-aged male up in the bed in no distress. No tachypnea or accessory muscle of respiration use. HEENT examination shows no pallor or scleral icterus. Oral mucosa membranes is dry. No pharyngeal erythema or thrush. NECK: Trachea is central. No thyromegaly. LUNGS: Unlabored breathing. Clear to auscultation anteriorly. No wheeze or crackle. HEART: S1, S2. Regular rate and rhythm. ABDOMEN: Soft. No tenderness. Bilateral extremities with significant swelling. Left leg did have some superficial ulceration, minimal foul-smelling drainage, but no induration was noted. Right axillary area did have purulent drainage that was cultured. NEUROLOGICAL: Patient is awake, alert, oriented x3. Mood and affect normal. LABS: Hemoglobin is 13, white count 38.2, BUN of 28, creatinine 1.0. Electrolytes have been normal. Liver enzymes are normal. UA has been positive. DIAGNOSTIC IMPRESSION AND PLAN: Patient admitted to hospital with generalized weakness in a patient who did have elevated blood sugar, more likely multifactorial with evidence of left lower extremity cellulitis and also with evidence of right axillary abscess and a possible urinary tract infection with significantly positive urinalysis. Will need to cover for both gram-positive as well as gram-negative infection. PLAN: 1. Left leg local wound care with Aquacel Silver dressing followed by Richard wrap from just above to below the knee, to be changed daily. 2. Vancomycin, Pharmacy to dose, target of 15. 3. Zosyn 3.75 q.8 while waiting for the culture to finalize. 4. We will follow up on the clinical condition as well as cultures to further adjust medication if needed. Thank you for this consultation. Will follow this patient along with you. MMODL / IJN: [id number] /
[2018-03-13] MEDS: VANCOMYCIN 2,000 MG in SODIUM CHLORIDE 0.9% 500 ML IVPB SCH ×2 (06:43→18:10)
[2018-03-13 07:17] LABS: Glucose,Whole Blood 143 mg/dL (75-99)
[2018-03-13 07:48] LABS: HCT 37.1 % (39.0-53.0); HGB 12.1 gm/dL (13.0-17.5); MCH 30.3 pg (25.0-35.0); MCHC 32.7 g/dL (31.0-37.0); MCV 92.4 fL (80.0-100.0); Mean Platelet Volume 7.3; Platelet Count 168 k/uL (150-450); RBC 4.01 m/uL (4.30-5.90); RDW 14.4 % (11.5-15.5)
[2018-03-13] MEDS: INSULIN DETEMIR 100 UNIT/ML 10 ML VIAL SQ SCH (07:50)
[2018-03-13] MEDS: INSULIN ASPART 100 UNIT/ML 1 ML 10 ML VIAL SQ SCH ×7 (07:51→21:18)
[2018-03-13] MEDS: IBUPROFEN 600 MG TAB PO SCH ×3 (07:51→20:28)
[2018-03-13] MEDS: PIPERACILLIN-TAZOBACTAM 3.375 GM in DEXTROSE/WATER 1 50ML.BAG IVPB SCH ×3 (07:52→23:49)
[2018-03-13] MEDS: GABAPENTIN 300 MG CAP PO SCH ×3 (07:53→20:28)
[2018-03-13] MEDS: ENOXAPARIN 40 MG/0.4 ML SYRINGE SQ SCH (07:53)
[2018-03-13] MEDS: LIDOCAINE 5% PATCH TOPICAL SCH (07:53)
[2018-03-13 07:54] LABS: Anion Gap 7 mmol/L; Blood Urea Nitrogen 18 mg/dL (9-20); Calcium 8.6 mg/dL (8.4-10.2); Carbon Dioxide 27 mmol/L (22-30); Chloride 105 mmol/L (98-107); Glucose 163 mg/dL (74-99); Potassium 4.7 mmol/L (3.5-5.1); Sodium 139 mmol/L (137-145)
[2018-03-13] MEDS: POTASSIUM CHLORIDE ER 10 MEQ TAB.ER.PRT PO SCH (07:54)
[2018-03-13] MEDS: buPROPion 100 MG TAB PO SCH ×2 (07:54→20:28)
[2018-03-13] MEDS: PANTOPRAZOLE 40 MG TABLET PO SCH (07:54)
[2018-03-13] MEDS: OXYBUTYNIN XL 5 MG TAB.ER.24 PO SCH (07:54)
[2018-03-13 07:55] LABS: WBC 36.8 k/uL (3.8-10.6)
--- NOTE | 2018-03-13 08:22 | XR ---
EXAMINATION TYPE: XR chest 1V portable DATE OF EXAM: 03/13/2018 CLINICAL HISTORY: Difficulty breathing and CHF progress study. TECHNIQUE: Single AP portable upright view of the chest is obtained. COMPARISON: Chest x-ray from March 10, 2013 FINDINGS: Exam noted suboptimal secondary to patient's large body habitus and portable technique. Th ere is cardiomegaly with central vascular congestion felt present. No large pleural effusion or pneum othorax is seen bilaterally. Osseous structures are intact. IMPRESSION: Suboptimal study but suspect CHF exacerbation as there is cardiomegaly with suspected pita tral vascular congestion.
--- NOTE | 2018-03-13 09:13 | P.PN ---
Subjective Progress Note Date: 03/13/18 Principal diagnosis: Right axillary abscess Patient doing well today. Pain continued to improve in the right axilla. He is afebrile. Cultures pending. Objective - Vital Signs Vital signs: Vital Signs Temp 97.7 F 03/13/18 06:32 Pulse 98 03/13/18 06:32 Resp 18 03/13/18 06:32 BP 158/78 03/13/18 06:32 Pulse Ox 98 03/13/18 06:32 Intake & Output 03/12/18 03/13/18 03/13/18 18:59 06:59 18:59 Intake Total 1370 50 Output Total 400 750 Balance 970 -750 50 Weight 147 kg Intake: Intake, IV Titration 50 50 Amount Piperacillin-Tazobactam 3 50 50 .375 gm In Dextrose/Water 1 50ml.bag @ 12.5 mls/hr IVPB Q8HR [facility] Rx#: [id number] Oral 1320 Output: Urine 400 750 Other: Voiding Method Urinal Urinal # Voids 1 150 # Bowel Movements 1 - Exam Right axillary wound open with packing in place. Tenderness and erythema slightly improved. - Labs CBC & Chem 7: 03/13/18 07:24 03/13/18 07:24 Labs: Abnormal Lab Results - Last 24 Hours (Table) 03/11/18 03/12/18 03/12/18 Range/Units 13:25 12:01 16:37 WBC (3.8-10.6) k/uL RBC (4.30-5.90) m/uL Hgb (13.0-17.5) gm/dL Hct (39.0-53.0) % Glucose (74-99) mg/dL POC Glucose (mg/dL) 260 H 207 H (75-99) mg/dL Hemoglobin A1c 10.9 H (4.0-6.0) % 03/12/18 03/13/18 03/13/18 Range/Units 20:42 07:15 07:24 WBC 36.8 H* (3.8-10.6) k/uL RBC 4.01 L (4.30-5.90) m/uL Hgb 12.1 L (13.0-17.5) gm/dL Hct 37.1 L (39.0-53.0) % Glucose (74-99) mg/dL POC Glucose (mg/dL) 208 H 143 H (75-99) mg/dL Hemoglobin A1c (4.0-6.0) % 03/13/18 Range/Units 07:24 WBC (3.8-10.6) k/uL RBC (4.30-5.90) m/uL Hgb (13.0-17.5) gm/dL Hct (39.0-53.0) % Glucose 163 H (74-99) mg/dL POC Glucose (mg/dL) (75-99) mg/dL Hemoglobin A1c (4.0-6.0) % Microbiology - Last 24 Hours (Table) 03/12/18 01:05 Gram Stain - Preliminary Leg - Right Wound Culture - Preliminary Gram Neg Bacilli Presumptive Staph aureus 03/12/18 01:05 Gram Stain - Preliminary Leg - Left Wound Culture - Preliminary Presumptive Staph aureus 03/12/18 12:00 Gram Stain - Preliminary Axilla - Right Wound Culture - Preliminary 03/12/18 01:05 Gram Stain - Preliminary Axilla - Right Wound Culture - Preliminary 03/11/18 13:09 Urine Culture - Preliminary Urine,Clean Catch Gram Neg Bacilli 03/11/18 13:25 Blood Culture - Preliminary Blood No Growth after 24 hours 03/12/18 12:00 Anaerobic Culture - Preliminary Axilla - Right Assessment and Plan (1) Abscess of right axilla Narrative/Plan: Continue antibiotics. Continue local wound care with iodophor for now. We'll follow Current Visit: Yes Status: Acute Code(s): L02.411 - CUTANEOUS ABSCESS OF RIGHT AXILLA SNOMED Code(s): 25250567
[2018-03-13 09:42] LABS: Lymphocytes # (M) 32.75 k/uL (1.0-4.8); Neutrophils # (M) 4.05 k/uL (1.3-7.7); Neutrophils % (M) 11 %; Nucleated Red Blood Cells 0 /100 WBC (0-0); Total Cells Counted 100
[2018-03-13 09:43] LABS: Poikilocytosis (M) Present
[2018-03-13] MEDS: SILVER sulfADIAZINE Cream 400 GM 1 APPLIC APPLIC TOPICAL SCH (10:38)
[2018-03-13] MEDS: LISINOPRIL 20 MG TAB PO SCH ×2 (10:38→20:28)
[2018-03-13 12:21] LABS: Glucose,Whole Blood 223 mg/dL (75-99)
[2018-03-13] MEDS ORDERED: MINERAL OIL-WHITE PETROLATUM 120 GM JAR TOPICAL PRN (13:23)
[2018-03-13] MEDS ORDERED: FUROSEMIDE 10 MG/ML 4 ML VIAL IV STA (15:13)
[2018-03-13] MEDS: HYDROcodone/APAP 5-325MG 1 EACH TAB PO PRN (15:38)
[2018-03-13] MEDS ORDERED: VANCOMYCIN TROUGH DUE 1 EACH MISC MISCELLANE ONE (17:00)
--- NOTE | 2018-03-13 17:17 | P.PN ---
Subjective Progress Note Date: 03/13/18 Progress note being dictated for Dr. Rushing. Interval history: This is a 63-year-old gentleman admitted with right axillary abscess, bilateral lower extremity cellulitis, left greater than right and multiple other medical issues. Evaluated by surgery with no surgical intervention recommended at this time. Wound care and antibiotics as per infectious disease. Pain controlled. Afebrile. Chest x-ray suggestive of CHF. Objective - Vital Signs Vital signs: Vital Signs Temp 97.7 F 03/13/18 06:32 Pulse 98 03/13/18 06:32 Resp 18 03/13/18 06:32 BP 158/78 03/13/18 06:32 Pulse Ox 98 03/13/18 06:32 Intake & Output 03/12/18 03/13/18 03/13/18 18:59 06:59 18:59 Intake Total 1370 100 Output Total 400 750 500 Balance 970 -750 -400 Weight 147 kg Intake: Intake, IV Titration 50 100 Amount Piperacillin-Tazobactam 3 50 100 .375 gm In Dextrose/Water 1 50ml.bag @ 12.5 mls/hr IVPB Q8HR [facility] Rx#: [id number] Oral 1320 Output: Urine 400 750 500 Other: Voiding Method Urinal Urinal Urinal # Voids 1 150 # Bowel Movements 1 1 - Exam PHYSICAL EXAM: VITAL SIGNS: As above GENERAL: Sitting up at side of bed, no acute distress HEENT: Conjunctivae normal. eyes normal. Oral mucosa moist NECK: No JVD. No thyroid enlargement. No LNs CARDIOVASCULAR: S1, S2 muffled. No murmur RESPIRATION: Breath sounds diminished in the bases. No rhonchi or crackles. ABDOMEN: Soft, nontender . No guarding. no masses palpable. Bowel sounds heard. SKIN: Right axilla packing, improving erythema.tenderness. Bilateral leg cellulitis, left greater than right. Left leg with superficial ulceration. Richard wraps clean dry and intact PSYCHIATRY: Alert and oriented -3, mood and affect normal. NERVOUS SYSTEM: Cranial N 2-12 grossly normal. Moves all 4 limbs. Diffuse weakness No focal deficits. Microbiology 03/11/18 13:25 Blood Blood Culture - Preliminary No Growth after 48 hours 03/12/18 01:05 Axilla - Right Gram Stain - Final 03/12/18 01:05 Axilla - Right Wound Culture - Final 03/12/18 12:00 Axilla - Right Gram Stain - Preliminary 03/12/18 12:00 Axilla - Right Wound Culture - Preliminary Presumptive Staph aureus 03/12/18 01:05 Leg - Right Gram Stain - Preliminary 03/12/18 01:05 Leg - Right Wound Culture - Preliminary Gram Neg Bacilli Presumptive Staph aureus 03/12/18 01:05 Leg - Left Gram Stain - Preliminary 03/12/18 01:05 Leg - Left Wound Culture - Preliminary Presumptive Staph aureus 03/11/18 13:09 Urine,Clean Catch Urine Culture - Preliminary Gram Neg Bacilli 03/12/18 12:00 Axilla - Right Anaerobic Culture - Preliminary - Labs CBC & Chem 7: 03/13/18 07:24 03/13/18 07:24 Labs: Abnormal Lab Results - Last 24 Hours (Table) 03/12/18 03/12/18 03/13/18 Range/Units 16:37 20:42 07:15 WBC (3.8-10.6) k/uL RBC (4.30-5.90) m/uL Hgb (13.0-17.5) gm/dL Hct (39.0-53.0) % Lymphocytes # (Manual) (1.0-4.8) k/uL Glucose (74-99) mg/dL POC Glucose (mg/dL) 207 H 208 H 143 H (75-99) mg/dL 03/13/18 03/13/18 03/13/18 Range/Units 07:24 07:24 12:19 WBC 36.8 H* (3.8-10.6) k/uL RBC 4.01 L (4.30-5.90) m/uL Hgb 12.1 L (13.0-17.5) gm/dL Hct 37.1 L (39.0-53.0) % Lymphocytes # (Manual) 32.75 H (1.0-4.8) k/uL Glucose 163 H (74-99) mg/dL POC Glucose (mg/dL) 223 H (75-99) mg/dL Microbiology - Last 24 Hours (Table) 03/12/18 01:05 Gram Stain - Final Axilla - Right Wound Culture - Final 03/12/18 12:00 Gram Stain - Preliminary Axilla - Right Wound Culture - Preliminary Presumptive Staph aureus 03/12/18 01:05 Gram Stain - Preliminary Leg - Right Wound Culture - Preliminary Gram Neg Bacilli Presumptive Staph aureus 03/12/18 01:05 Gram Stain - Preliminary Leg - Left Wound Culture - Preliminary Presumptive Staph aureus 03/11/18 13:09 Urine Culture - Preliminary Urine,Clean Catch Gram Neg Bacilli 03/11/18 13:25 Blood Culture - Preliminary Blood No Growth after 24 hours 03/12/18 12:00 Anaerobic Culture - Preliminary Axilla - Right Assessment and Plan Assessment: 1. Acute left leg cellulitis, right axillary abscess 2. Diabetes mellitus type II, uncontrolled 3. Possible acute UTI 4. Morbid obesity, BMI 46.5 5. Chronic lymphoid leukemia 6. Possible acute CHF exacerbation, echo pending. Plan: Continue current medication regime ,monitoring and symptomatic treatment. Levemir dose increased. Pre-meal insulin also added to med regime with parameters.close monitoring of Accu-Cheks. IV Antibiotics/Wound Care as per infectious disease. Lasix 40 IV push 1 and echo ordered as chest x-ray suggestive of CHF. The impression and plan of care has been dictated as directed. : I performed a history and examination of this patient, discussed the same with the dictator. I agree with the dictator's note ,documented as a scribe. Any additional findings or plans will be noted.
[2018-03-13 17:45] LABS: Glucose,Whole Blood 120 mg/dL (75-99)
--- NOTE | 2018-03-13 17:49 | PN ---
PROGRESS NOTE DATE OF SERVICE: 03/13/2018. REASON FOR FOLLOWUP: Bilateral extremity wound cellulitis, left and right and a right axillary abscess. INTERVAL HISTORY: The patient is currently afebrile. He is breathing comfortably. The patient did have a bedside drainage of the right axillary area. No further purulent material per the R.N. Denies having any chest pain. No abdominal pain or any pain to the left leg area. EXAMINATION: Blood pressure is 158/78 with a pulse of 98, temperature 97.7. He is 98% on room air. General description is a middle-aged male up in the bed in no distress. RESPIRATORY SYSTEM: Unlabored breathing. Clear to auscultation anteriorly. HEART: S1, S2. Regular rate and rhythm. ABDOMEN: Soft. No tenderness. Left leg is currently dressed up. No obvious drainage on the dressing. LABS: Hemoglobin is 12.9, white count 36.8. BUN of 18, creatinine 0.90. Cultures are showing a presumptive Staph aureus as well as gram-negative. DIAGNOSTIC IMPRESSION AND PLAN: Patient admitted to the hospital with bilateral lower extremity cellulitis, left greater than right, with some superficial ulceration and an abscess to the right ankle area. Culture now showing both a gram-negative as well as Staphylococcus aureus. The patient covered with vancomycin and Zosyn. Will be continued while watching his kidney function closely. Adjust antibiotic further based on the culture report. Continue with supportive care. MMODL / IJN: [id number] /
[2018-03-13] MEDS: ATORVASTATIN 20 MG TAB PO SCH (20:28)
[2018-03-13] MEDS: DOXAZOSIN 2 MG TAB PO SCH (20:28)
[2018-03-13] MEDS: ARIPiprazole 5 MG TAB PO SCH (20:29)
[2018-03-13] MEDS: LATANOPROST 0.005% OPHTH DROPS 2.5 ML BTL BOTH EYES SCH (20:29)
[2018-03-13 21:17] LABS: Glucose,Whole Blood 186 mg/dL (75-99)
[2018-03-14] MEDS: VANCOMYCIN 2,000 MG in SODIUM CHLORIDE 0.9% 500 ML IVPB SCH ×2 (06:31→17:41)
[2018-03-14 07:31] LABS: Glucose,Whole Blood 160 mg/dL (75-99)
[2018-03-14] MEDS: INSULIN ASPART 100 UNIT/ML 1 ML 10 ML VIAL SQ SCH ×7 (07:41→21:21)
[2018-03-14] MEDS: buPROPion 100 MG TAB PO SCH ×2 (07:41→21:20)
[2018-03-14] MEDS: GABAPENTIN 300 MG CAP PO SCH ×3 (07:42→21:21)
[2018-03-14] MEDS: ENOXAPARIN 40 MG/0.4 ML SYRINGE SQ SCH (07:42)
[2018-03-14] MEDS: OXYBUTYNIN XL 5 MG TAB.ER.24 PO SCH (07:43)
[2018-03-14] MEDS: PANTOPRAZOLE 40 MG TABLET PO SCH (07:43)
[2018-03-14] MEDS: LIDOCAINE 5% PATCH TOPICAL SCH (07:43)
[2018-03-14] MEDS: LISINOPRIL 20 MG TAB PO SCH ×2 (07:43→21:21)
[2018-03-14] MEDS: SILVER sulfADIAZINE Cream 400 GM 1 APPLIC APPLIC TOPICAL SCH (07:44)
[2018-03-14 07:50] LABS: HCT 36.8 % (39.0-53.0); MCHC 32.6 g/dL (31.0-37.0); MCV 92.1 fL (80.0-100.0); Mean Platelet Volume 7.4; Platelet Count 178 k/uL (150-450); RDW 14.8 % (11.5-15.5)
[2018-03-14 07:53] LABS: WBC 36.6 k/uL (3.8-10.6)
[2018-03-14 07:57] LABS: Anion Gap 7 mmol/L; Blood Urea Nitrogen 16 mg/dL (9-20); Calcium 8.5 mg/dL (8.4-10.2); Carbon Dioxide 25 mmol/L (22-30); Chloride 106 mmol/L (98-107); Glucose 167 mg/dL (74-99); Potassium 4.5 mmol/L (3.5-5.1); Sodium 138 mmol/L (137-145)
[2018-03-14 08:36] LABS: Eosinophils # (M) 0.37 k/uL (0-0.7); Lymphocytes # (M) 31.84 k/uL (1.0-4.8); Monocytes # (M) 0.37 k/uL (0-1.0); Neutrophils # (M) 4.39 k/uL (1.3-7.7); Neutrophils % (M) 12 %; Nucleated Red Blood Cells 0 /100 WBC (0-0); Total Cells Counted 200
[2018-03-14 08:37] LABS: Anisocytosis (M) Present; Poikilocytosis (M) Present; Polychromasia Present
[2018-03-14] MEDS ORDERED: INSULIN DETEMIR 100 UNIT/ML 10 ML VIAL SQ SCH (09:00)
[2018-03-14] MEDS: IBUPROFEN 600 MG TAB PO SCH ×3 (09:18→21:21)
[2018-03-14] MEDS: INSULIN DETEMIR 100 UNIT/ML 10 ML VIAL SQ SCH (09:19)
[2018-03-14] MEDS: POTASSIUM CHLORIDE ER 10 MEQ TAB.ER.PRT PO SCH (09:19)
[2018-03-14] MEDS: PIPERACILLIN-TAZOBACTAM 3.375 GM in DEXTROSE/WATER 1 50ML.BAG IVPB SCH ×3 (09:58→23:43)
--- NOTE | 2018-03-14 11:09 | ECHOF ---
Referral Reason:LV function MEASUREMENTS -------- HEIGHT: 177.8 cm WEIGHT: 147.0 kg BP: 158/8 RVIDd: 3.1 cm (< 3.3) IVSd: 1.2 cm (0.6 - 1.1) LVIDd: 5.0 cm (3.9 - 5.3) LVPWd: 1.3 cm (0.6 - 1.1) IVSs: 1.8 cm LVIDs: 3.6 cm LVPWs: 1.7 cm LA Diam: 4.3 cm (2.7 - 3.8) LAESV Index (A-L): 35.99 ml/m Ao Diam: 3.5 cm (2.0 - 3.7) AV Cusp: 2.2 cm (1.5 - 2.6) MV EXCURSION: 20.262 mm (> 18.000) MV EF SLOPE: 137 mm/s (70 - 150) EPSS: 0.2 cm FINDINGS -------- Atrial fibrillation. This was a technically difficult study with suboptimal views. The left ventricular size is normal. There is mild concentric left ventricular hypertrophy. Overa ll left ventricular systolic function is normal with, an EF between 55 - 60 %. The right ventricle is normal in size. LA is moderately dilated 34-39 ml/m2 The right atrium is normal in size. 3 ml of Lumason was utilized for enhancement of images. There is mild aortic valve sclerosis. The mitral valve leaflets are mildly thickened. Mild mitral annular calcification present. The tricuspid valve appears structurally normal. Trace/mild (physiologic) pulmonic regurgitation. The aortic root size is normal. IVC Not well visulized. There is no pericardial effusion. CONCLUSIONS -------- 1. Atrial fibrillation. 2. This was a technically difficult study with suboptimal views. 3. The left ventricular size is normal. 4. There is mild concentric left ventricular hypertrophy. 5. Overall left ventricular systolic function is normal with, an EF between 55 - 60 %. 6. The right ventricle is normal in size. 7. LA is moderately dilated 34-39 ml/m2 8. The right atrium is normal in size. 9. 3 ml of Lumason was utilized for enhancement of images. 10. There is mild aortic valve sclerosis. 11. The mitral valve leaflets are mildly thickened. 12. Mild mitral annular calcification present. 13. The tricuspid valve appears structurally normal. 14. Trace/mild (physiologic) pulmonic regurgitation. 15. The aortic root size is normal. 16. IVC Not well visulized. 17. There is no pericardial effusion. DECONTAMINATION WORKER: Jennifer Villegas RDCS
[2018-03-14 11:45] LABS: Glucose,Whole Blood 212 mg/dL (75-99)
--- NOTE | 2018-03-14 14:39 | P.PN ---
<Louise Cornejo M - Last Filed: 03/14/18 14:28> Subjective Progress Note Date: 03/14/18 63-year-old male sitting up on the bed taking a diet states there is a significant improvement in the right axillary "soreness on. Right axillary small incision no drainage noted no redness around site. Being followed by infectious disease wound cultures are pending Objective - Vital Signs Vital signs: Vital Signs Temp 97.8 F 03/14/18 05:45 Pulse 75 03/14/18 05:45 Resp 14 03/14/18 05:45 BP 143/71 03/14/18 05:45 Pulse Ox 98 03/14/18 05:45 Intake & Output 03/13/18 03/14/18 03/14/18 18:59 06:59 18:59 Intake Total 650 200 Output Total 2200 800 100 Balance -1550 -600 -100 Weight 147 kg 146.1 kg Intake: Intake, IV Titration 650 Amount Piperacillin-Tazobactam 3 150 .375 gm In Dextrose/Water 1 50ml.bag @ 12.5 mls/hr IVPB Q8HR [facility] Rx#: [id number] Vancomycin 2,000 mg In 500 Sodium Chloride 0.9% 500 ml @ 167 mls/hr IVPB Q12H [facility] Rx#:[id number] Oral 200 Output: Urine 2200 800 100 Other: Voiding Method Urinal Urinal Diaper Diaper Incontinent Incontinent # Voids 150 1 # Bowel Movements 1 0 - Exam Physical exam 63-year-old male sitting up in bed appears in no acute distress taking a diet lungs adequate air movement bilaterally clear Heart S1-2 audible regular Abdomen obese soft nontender no nausea no vomiting nondistended Extremities right axillary non-reddened open with no drainage from incision site no packing noted tenderness and erythema slightly improved - Labs CBC & Chem 7: 03/14/18 07:17 03/14/18 07:17 Labs: Abnormal Lab Results - Last 24 Hours (Table) 03/13/18 03/13/18 03/14/18 Range/Units 17:11 21:15 07:15 WBC (3.8-10.6) k/uL RBC (4.30-5.90) m/uL Hgb (13.0-17.5) gm/dL Hct (39.0-53.0) % Lymphocytes # (Manual) (1.0-4.8) k/uL Glucose (74-99) mg/dL POC Glucose (mg/dL) 120 H 186 H 160 H (75-99) mg/dL 03/14/18 03/14/18 03/14/18 Range/Units 07:17 07:17 11:42 WBC 36.6 H* (3.8-10.6) k/uL RBC 4.00 L (4.30-5.90) m/uL Hgb 12.0 L (13.0-17.5) gm/dL Hct 36.8 L (39.0-53.0) % Lymphocytes # (Manual) 31.84 H (1.0-4.8) k/uL Glucose 167 H (74-99) mg/dL POC Glucose (mg/dL) 212 H (75-99) mg/dL Microbiology - Last 24 Hours (Table) 03/12/18 12:00 Anaerobic Culture - Preliminary Axilla - Right 03/12/18 12:00 Gram Stain - Final Axilla - Right Wound Culture - Final Staphylococcus aureus 03/12/18 01:05 Gram Stain - Preliminary Leg - Right Wound Culture - Preliminary Enterobacter cloacae Presumptive Staph aureus 03/12/18 01:05 Gram Stain - Final Leg - Left Wound Culture - Final Staphylococcus aureus 03/12/18 01:05 Gram Stain - Final Axilla - Right Wound Culture - Final 03/11/18 13:09 Urine Culture - Final Urine,Clean Catch Klebsiella pneumoniae 03/11/18 13:25 Blood Culture - Preliminary Blood No Growth after 48 hours Assessment and Plan Assessment: Impression Present on admission right axilla abscess with redness positive tenderness yellowish drainage likely due to abscess Morbid obesity BMI 46 Bilateral lower extremity cellulitis Present on admission hyperglycemia resolved Presented admission leukocytosis suspect due to Chronic lymphocytic leukemia History of sleep apnea, depressive disorder Present on admission umbilical hernia suspect chronic Plan Wound care per infectious disease Follow up on the pending wound culture from the right axilla Antibiotics per infectious disease The above impression and plan of care have been discussed and directed by signing physician. Louise Cornejo nurse practitioner acting as scribe for signing physician. <Fabian Carrillo - Last Filed: 03/14/18 18:01> Objective - Vital Signs Vital signs: Vital Signs Temp 97.2 F L 03/14/18 14:32 Pulse 80 03/14/18 14:32 Resp 20 03/14/18 14:32 BP 136/73 03/14/18 14:32 Pulse Ox 96 03/14/18 14:32 Intake & Output 03/13/18 03/14/18 03/14/18 18:59 06:59 18:59 Intake Total 650 200 Output Total 2200 800 100 Balance -1550 -600 -100 Weight 147 kg 146.1 kg Intake: Intake, IV Titration 650 Amount Piperacillin-Tazobactam 3 150 .375 gm In Dextrose/Water 1 50ml.bag @ 12.5 mls/hr IVPB Q8HR [facility] Rx#: [id number] Vancomycin 2,000 mg In 500 Sodium Chloride 0.9% 500 ml @ 167 mls/hr IVPB Q12H [facility] Rx#:[id number] Oral 200 Output: Urine 2200 800 100 Other: Voiding Method Urinal Urinal Diaper Diaper Incontinent Incontinent # Voids 150 1 2 # Bowel Movements 1 0 - Labs CBC & Chem 7: 03/14/18 07:17 03/14/18 07:17 Labs: Abnormal Lab Results - Last 24 Hours (Table) 03/13/18 03/14/18 03/14/18 Range/Units 21:15 07:15 07:17 WBC 36.6 H* (3.8-10.6) k/uL RBC 4.00 L (4.30-5.90) m/uL Hgb 12.0 L (13.0-17.5) gm/dL Hct 36.8 L (39.0-53.0) % Lymphocytes # (Manual) 31.84 H (1.0-4.8) k/uL Glucose (74-99) mg/dL POC Glucose (mg/dL) 186 H 160 H (75-99) mg/dL 03/14/18 03/14/18 03/14/18 Range/Units 07:17 11:42 17:21 WBC (3.8-10.6) k/uL RBC (4.30-5.90) m/uL Hgb (13.0-17.5) gm/dL Hct (39.0-53.0) % Lymphocytes # (Manual) (1.0-4.8) k/uL Glucose 167 H (74-99) mg/dL POC Glucose (mg/dL) 212 H 129 H (75-99) mg/dL Microbiology - Last 24 Hours (Table) 03/11/18 13:25 Blood Culture - Preliminary Blood No Growth after 72 hours 03/12/18 12:00 Anaerobic Culture - Preliminary Axilla - Right 03/12/18 12:00 Gram Stain - Final Axilla - Right Wound Culture - Final Staphylococcus aureus 03/12/18 01:05 Gram Stain - Preliminary Leg - Right Wound Culture - Preliminary Enterobacter cloacae Presumptive Staph aureus 03/12/18 01:05 Gram Stain - Final Leg - Left Wound Culture - Final Staphylococcus aureus 03/12/18 01:05 Gram Stain - Final Axilla - Right Wound Culture - Final 03/11/18 13:09 Urine Culture - Final Urine,Clean Catch Klebsiella pneumoniae Assessment and Plan Assessment: Patient doing better. No pain in the right axilla at this time. He is afebrile. Cultures noted. Continue local wound care. We'll sign off. Please contact if needed. (1) Abscess of right axilla Current Visit: Yes Status: Acute Code(s): L02.411 - CUTANEOUS ABSCESS OF RIGHT AXILLA SNOMED Code(s): 47580984
--- NOTE | 2018-03-14 15:24 | PN ---
PROGRESS NOTE DATE OF SERVICE: 03/14/2018 REASON FOR FOLLOWUP: 1. Bilateral extremity wound cellulitis. 2. Right axilla abscess. INTERVAL HISTORY: The patient is currently afebrile. He is breathing comfortably. Denies having any chest pain. No cough. No abdominal pain. Overall drainage to the right axillary abscess has decreased. Denies any pain to the leg. Did mention that the dressing was changed by the RN and did show overall improvement. PHYSICAL EXAMINATION: Blood pressure 143/71 with a pulse of 75, temperature is 97.8, he is 98% on room air. General description is a middle-aged male, up in the bed in no distress. RESPIRATORY SYSTEM: Unlabored breathing, clear to auscultation anteriorly. HEART: S1, S2. Regular rate and rhythm. Bilateral leg with 2nd dressed up, no obvious drainage on the dressing. LABS: Creatinine 0.85. DIAGNOSTIC IMPRESSION AND PLAN: Patient with bilateral lower extremity wound with secondary cellulitis, culture did show multiple pathogen growing methicillin-sensitive Staphylococcus aureus and Klebsiella, also with MSSA to the right axillary area. Will keep the patient on IV antibiotic for 24 hours and hopefully finish therapy with oral Keflex and Cipro combination tomorrow for another 10 days with close outpatient followup. Local wound care to continue as ordered. Continue supportive care. MMODL / IJN: [id number] /
[2018-03-14] MEDS: HYDROcodone/APAP 5-325MG 1 EACH TAB PO PRN (16:20)
[2018-03-14 17:33] LABS: Glucose,Whole Blood 129 mg/dL (75-99)
[2018-03-14 20:49] LABS: Glucose,Whole Blood 161 mg/dL (75-99)
[2018-03-14] MEDS: ATORVASTATIN 20 MG TAB PO SCH (21:20)
[2018-03-14] MEDS: ARIPiprazole 5 MG TAB PO SCH (21:20)
[2018-03-14] MEDS: LATANOPROST 0.005% OPHTH DROPS 2.5 ML BTL BOTH EYES SCH (21:21)
[2018-03-14] MEDS: DOXAZOSIN 2 MG TAB PO SCH (21:21)
--- NOTE | 2018-03-14 21:30 | P.PN ---
Subjective Progress Note Date: 03/14/18 Progress note being dictated for Dr. Rushing. Interval history: This is a 63-year-old gentleman admitted with right axillary abscess, bilateral lower extremity cellulitis, left greater than right and multiple other medical issues. Evaluated by surgery with no surgical intervention recommended at this time. Wound care and antibiotics as per infectious disease. Pain controlled. Afebrile. Chest x-ray suggestive of CHF. 03/14/2018 sitting up at side of bed, visiting with family/friend. Pain controlled. Tolerating diet with no nausea or vomiting. Afebrile, wound cultures pending. Maintained on antibiotics as per infectious disease. Yesterday he received a single dose of Lasix IV push for possible pulmonary edema. Significant clinical improvement. Maintaining O2 sats in the high 90s on room air, RR WNL. Echo suboptimal, reporting normal LV function, EF 55-60%, mild left ventricular hypertrophy Denies chest pain, palpitations or increasing shortness of breath. Objective - Vital Signs Vital signs: Vital Signs Temp 97.2 F L 03/14/18 14:32 Pulse 80 03/14/18 14:32 Resp 20 03/14/18 14:32 BP 136/73 03/14/18 14:32 Pulse Ox 96 03/14/18 14:32 Intake & Output 03/14/18 03/14/18 03/15/18 06:59 18:59 06:59 Intake Total 200 240 Output Total 800 100 Balance -600 140 Weight 146.1 kg Intake: Oral 200 240 Output: Urine 800 100 Other: Voiding Method Urinal Diaper Incontinent # Voids 1 2 # Bowel Movements 0 - Exam PHYSICAL EXAM: VITAL SIGNS: As above GENERAL: Sitting up at side of bed, no acute distress HEENT: Conjunctivae normal. eyes normal. Oral mucosa moist NECK: No JVD. No thyroid enlargement. No LNs CARDIOVASCULAR: S1, S2 muffled. No murmur RESPIRATION: Breath sounds diminished in the bases. No rhonchi or crackles. No wheezing ABDOMEN: Soft, obese, nontender . No guarding. no masses palpable. Bowel sounds heard. SKIN: Right axilla open, nondraining, improving erythema.tenderness. Bilateral leg cellulitis, left greater than right. Left leg with superficial ulceration. Richard wraps clean dry and intact PSYCHIATRY: Alert and oriented -3, mood and affect normal. NERVOUS SYSTEM: Cranial N 2-12 grossly normal. Moves all 4 limbs. Diffuse weakness No focal deficits. Microbiology 03/11/18 13:25 Blood Blood Culture - Preliminary No Growth after 72 hours 03/12/18 12:00 Axilla - Right Anaerobic Culture - Preliminary 03/12/18 12:00 Axilla - Right Gram Stain - Final 03/12/18 12:00 Axilla - Right Wound Culture - Final Staphylococcus aureus 03/12/18 01:05 Leg - Right Gram Stain - Preliminary 03/12/18 01:05 Leg - Right Wound Culture - Preliminary Enterobacter cloacae Presumptive Staph aureus 03/12/18 01:05 Leg - Left Gram Stain - Final 03/12/18 01:05 Leg - Left Wound Culture - Final Staphylococcus aureus 03/12/18 01:05 Axilla - Right Gram Stain - Final 03/12/18 01:05 Axilla - Right Wound Culture - Final 03/11/18 13:09 Urine,Clean Catch Urine Culture - Final Klebsiella pneumoniae - Labs CBC & Chem 7: 03/14/18 07:17 03/14/18 07:17 Labs: Abnormal Lab Results - Last 24 Hours (Table) 03/13/18 03/14/18 03/14/18 Range/Units 21:15 07:15 07:17 WBC 36.6 H* (3.8-10.6) k/uL RBC 4.00 L (4.30-5.90) m/uL Hgb 12.0 L (13.0-17.5) gm/dL Hct 36.8 L (39.0-53.0) % Lymphocytes # (Manual) 31.84 H (1.0-4.8) k/uL Glucose (74-99) mg/dL POC Glucose (mg/dL) 186 H 160 H (75-99) mg/dL 03/14/18 03/14/18 03/14/18 Range/Units 07:17 11:42 17:21 WBC (3.8-10.6) k/uL RBC (4.30-5.90) m/uL Hgb (13.0-17.5) gm/dL Hct (39.0-53.0) % Lymphocytes # (Manual) (1.0-4.8) k/uL Glucose 167 H (74-99) mg/dL POC Glucose (mg/dL) 212 H 129 H (75-99) mg/dL 03/14/18 Range/Units 20:46 WBC (3.8-10.6) k/uL RBC (4.30-5.90) m/uL Hgb (13.0-17.5) gm/dL Hct (39.0-53.0) % Lymphocytes # (Manual) (1.0-4.8) k/uL Glucose (74-99) mg/dL POC Glucose (mg/dL) 161 H (75-99) mg/dL Microbiology - Last 24 Hours (Table) 03/11/18 13:25 Blood Culture - Preliminary Blood No Growth after 72 hours 03/12/18 12:00 Anaerobic Culture - Preliminary Axilla - Right 03/12/18 12:00 Gram Stain - Final Axilla - Right Wound Culture - Final Staphylococcus aureus 03/12/18 01:05 Gram Stain - Preliminary Leg - Right Wound Culture - Preliminary Enterobacter cloacae Presumptive Staph aureus 03/12/18 01:05 Gram Stain - Final Leg - Left Wound Culture - Final Staphylococcus aureus 03/12/18 01:05 Gram Stain - Final Axilla - Right Wound Culture - Final 03/11/18 13:09 Urine Culture - Final Urine,Clean Catch Klebsiella pneumoniae Assessment and Plan Assessment: 1. Acute left leg cellulitis, right axillary abscess. MSSA, Klebsiella, Enterobacter Clocae. 2. Diabetes mellitus type II, uncontrolled 3. Possible acute UTI 4. Morbid obesity, BMI 46.5 5. Chronic lymphoid leukemia 6. Possible acute CHF exacerbation, EF 55-60%, diastolic dysfunction. Plan: Continue current medication regime ,monitoring and symptomatic treatment. Levemir dose increased. Maintain IV antibiotics/Wound Care as per infectious disease. Maintained on IV antibiotics .Discharge planning in progress for tomorrow pending ID clearance.Close monitoring of Accu-Cheks. Further recommendations to follow. The impression and plan of care has been dictated as directed. : I performed a history and examination of this patient, discussed the same with the dictator. I agree with the dictator's note ,documented as a scribe. Any additional findings or plans will be noted.
[2018-03-15 04:53] VITALS: RESP 16
[2018-03-15] MEDS: VANCOMYCIN 2,000 MG in SODIUM CHLORIDE 0.9% 500 ML IVPB SCH (05:48)
[2018-03-15 06:01] VITALS: BP 157/74; PULSE 73; TEMP 96.6
[2018-03-15 07:14] LABS: Glucose,Whole Blood 174 mg/dL (75-99)
[2018-03-15] MEDS: POTASSIUM CHLORIDE ER 10 MEQ TAB.ER.PRT PO SCH (07:42)
[2018-03-15] MEDS: OXYBUTYNIN XL 5 MG TAB.ER.24 PO SCH (07:42)
[2018-03-15] MEDS: PANTOPRAZOLE 40 MG TABLET PO SCH (07:42)
[2018-03-15] MEDS: buPROPion 100 MG TAB PO SCH (07:42)
[2018-03-15] MEDS: GABAPENTIN 300 MG CAP PO SCH (07:42)
[2018-03-15] MEDS: INSULIN ASPART 100 UNIT/ML 1 ML 10 ML VIAL SQ SCH ×4 (07:43→11:58)
[2018-03-15] MEDS: INSULIN DETEMIR 100 UNIT/ML 10 ML VIAL SQ SCH (07:43)
[2018-03-15] MEDS: LISINOPRIL 20 MG TAB PO SCH (07:43)
[2018-03-15] MEDS: PIPERACILLIN-TAZOBACTAM 3.375 GM in DEXTROSE/WATER 1 50ML.BAG IVPB SCH (07:44)
[2018-03-15] MEDS: LIDOCAINE 5% PATCH TOPICAL SCH (07:44)
[2018-03-15] MEDS: IBUPROFEN 600 MG TAB PO SCH (07:44)
[2018-03-15] MEDS: ENOXAPARIN 40 MG/0.4 ML SYRINGE SQ SCH (07:45)
[2018-03-15] MEDS: SILVER sulfADIAZINE Cream 400 GM 1 APPLIC APPLIC TOPICAL SCH (07:45)
[2018-03-15 09:32] LABS: HCT 36.4 % (39.0-53.0); HGB 11.9 gm/dL (13.0-17.5); MCH 30.9 pg (25.0-35.0); MCHC 32.8 g/dL (31.0-37.0); Mean Platelet Volume 7.1; Platelet Count 189 k/uL (150-450); RBC 3.87 m/uL (4.30-5.90); RDW 14.8 % (11.5-15.5)
[2018-03-15 09:35] LABS: WBC 37.2 k/uL (3.8-10.6)
[2018-03-15 09:52] LABS: Anion Gap 8 mmol/L; Blood Urea Nitrogen 16 mg/dL (9-20); Calcium 8.5 mg/dL (8.4-10.2); Carbon Dioxide 25 mmol/L (22-30); Chloride 104 mmol/L (98-107); Glucose 191 mg/dL (74-99); Potassium 4.6 mmol/L (3.5-5.1); Sodium 137 mmol/L (137-145)
[2018-03-15 11:36] LABS: Eosinophils # (M) 0.37 k/uL (0-0.7); Lymphocytes # (M) 27.53 k/uL (1.0-4.8); Neutrophils % (M) 25 %; Nucleated Red Blood Cells 0 /100 WBC (0-0); Total Cells Counted 100
[2018-03-15 12:14] LABS: Glucose,Whole Blood 225 mg/dL (75-99)
--- NOTE | 2018-03-15 15:36 | PN ---
PROGRESS NOTE DATE OF SERVICE: 03/15/2018 REASON FOR FOLLOW UP: 1. Bilateral lower extremity wound cellulitis. 2. Right ankle abscess. INTERVAL HISTORY: The patient is currently afebrile. He is breathing comfortably. Denies having any chest pain or any cough. No abdominal pain or any pain to the right axillary area. Overall drainage has decreased. PHYSICAL EXAMINATION: Blood pressure is 157/74 with a pulse of 73, temperature 96.6. He is 97% on room air. General description is a middle-aged male up in the bed in no distress. RESPIRATORY SYSTEM: Unlabored breathing, clear to auscultation anteriorly. HEART: S1, S2. Regular rate and rhythm. ABDOMEN: Soft, no tenderness. Bilateral leg wounds are dressed up. No obvious drainage on the dressing. LABS: Hemoglobin is 11.9, white count is 37.2 with a BUN of 16, creatinine 0.94. Culture predominantly with Enterobacter cloacae and Staph aureus MSSA. DIAGNOSTIC IMPRESSION AND PLAN: Patient with bilateral extremity wound with secondary cellulitis with right axillary abscess secondary to methicillin-sensitive Staphylococcus aureus, status post spontaneous drainage. We will finish therapy with oral Keflex and Cipro. Prescription has been sent to the pharmacy. Local wound care to continue with an Aquacel Silver dressing and follow up in the office in a week. Continue supportive care. MMODL / IJN: [id number] /
--- NOTE | 2018-03-15 21:49 | DS ---
DISCHARGE SUMMARY FINAL DIAGNOSES: 1. Acute left leg cellulitis and right axillary abscess, methicillin-sensitive Staphylococcus aureus with Klebsiella Enterobacter cloacae. 2. Diabetes mellitus type 2, uncontrolled. 3. Acute urinary tract infection. 4. Morbid obesity, BMI of 46.5. 5. History of chronic lymphoid leukemia. 6. Congestive heart failure acute exacerbation, ejection fraction 50%-60%, acute on chronic diastolic dysfunction. DISCHARGE DISPOSITION: The patient will be discharged in stable condition with guarded prognosis. TOTAL TIME TAKEN: 35 minutes. HISTORY OF PRESENT ILLNESS: This 63-year-old gentleman with a past medical history of multiple medical problems was admitted with a leg cellulitis, multiple organisms grown as mentioned earlier, treated symptomatically. Dr. Gray saw the patient. also saw the patient. A 2D echo with a Doppler was also done which showed ejection fraction 55%-60%. EXAM: Vital signs stable. CARDIOVASCULAR: S1, S2. ABDOMEN: Soft. NERVOUS SYSTEM: Nonfocal. cellulitis, improving. DISCHARGED ADVICE AND MEDICATIONS: 1. Diet is cardiac. 2. Activity limited until followup. 3. Follow up with Dr. Escobar, [facility] in 2-3 days. 4. Follow up with Infectious Disease as recommended. 5. Medications are as follows: a. Abilify 2.5 mg daily. b. Lipitor 20 mg q.h.s. c. Wellbutrin 100 mg p.o. b.i.d. d. Neurontin 300 mg p.o. t.i.d. e. Motrin 600 mg t.i.d. f. Xalatan 0.04% 1 drop both eyes. g. Lidocaine patch topically. h. Zestril 20 mg p.o. b.i.d. i. Ditropan XL 5 mg p.o. daily. j. K-Dur 10 mg p.o. daily. k. Hytrin 2 mg q.h.s. l. Keflex 500 mg every 6 hours for 8 days. m. Cipro 500 mg p.o. b.i.d. for 10 days. n. NovoLog scale as before. o. NovoLog 10 units a.c. t.i.d. p. Lantus 58 units subcu daily. q. Multivitamins 1 p.o. daily. Keep Accu-Cheks a.c. and at bedtime and closely [facility] and Dr. Escobar. Once again, the patient discharged in stable condition with a guarded prognosis. [id number] / COOPERN: [id number] / [email or web address]
[2018-03-16] MEDS ORDERED: VANCOMYCIN TROUGH DUE 1 EACH MISC MISCELLANE ONE (05:00)
== END 2018-03-15 15:14 | disposition home health service (06) | DRG 602 ==
LOC: EC 11:29 → 4MS4W 15:32
PROVIDERS: ADMIT Hospitalist; ATTEND Hospitalist
DX: L03.116 Cellulitis of left lower limb (principal); I50.33 Acute on chronic diastolic (congestive) heart failure; C91.10 Chronic lymphocytic leukemia of B-cell type not having achieved remission; Z68.42 Body mass index [BMI] 45.0-49.9, adult; L02.411 Cutaneous abscess of right axilla; N39.0 Urinary tract infection, site not specified; L97.919 Non-pressure chronic ulcer of unspecified part of right lower leg with unspecified severity; L97.929 Non-pressure chronic ulcer of unspecified part of left lower leg with unspecified severity; E66.01 Morbid (severe) obesity due to excess calories; E11.622 Type 2 diabetes mellitus with other skin ulcer; E11.65 Type 2 diabetes mellitus with hyperglycemia; B95.61 Methicillin susceptible Staphylococcus aureus infection as the cause of diseases classified elsewhere; I11.0 Hypertensive heart disease with heart failure; L03.115 Cellulitis of right lower limb; L02.415 Cutaneous abscess of right lower limb; B96.1 Klebsiella pneumoniae [K. pneumoniae] as the cause of diseases classified elsewhere; B96.89 Other specified bacterial agents as the cause of diseases classified elsewhere; G47.33 Obstructive sleep apnea (adult) (pediatric); K42.9 Umbilical hernia without obstruction or gangrene; M19.91 Primary osteoarthritis, unspecified site; K21.9 Gastro-esophageal reflux disease without esophagitis; G89.29 Other chronic pain; M54.9 Dorsalgia, unspecified; F32.9 Major depressive disorder, single episode, unspecified; R19.7 Diarrhea, unspecified; R35.0 Frequency of micturition; F17.210 Nicotine dependence, cigarettes, uncomplicated; Z71.6 Tobacco abuse counseling; Z71.3 Dietary counseling and surveillance; Z79.1 Long term (current) use of non-steroidal anti-inflammatories (NSAID); Z79.4 Long term (current) use of insulin; Z79.899 Other long term (current) drug therapy; Z96.642 Presence of left artificial hip joint; Z88.8 Allergy status to other drugs, medicaments and biological substances; Z82.49 Family history of ischemic heart disease and other diseases of the circulatory system
CPT/HCPCS: 36415; 71045; 80048; 80053; 80202; 81001; 82009; 83036; 83605; 83735; 84100; 84484; 85025; 85610; 85730; 87040; 87070; 87075; 87077; 87086; 87186; 87205; 93306; 94660; 96365; 96367; 99284

== ENCOUNTER → 2018-08-15 | Outpatient (CLI) | payer OTHER ==
--- NOTE | 2018-08-15 15:00 | US ---
EXAMINATION TYPE: US venous doppler duplex LE BI DATE OF EXAM: 08/15/2018 2:13 PM COMPARISON: NONE CLINICAL HISTORY: M79.604 Pain Rt Leg, M79.605 Pain Lt Leg. no hx of blood clots. No leg swelling. On aspirin. SIDE PERFORMED: Bilateral TECHNIQUE: The lower extremity deep venous system is examined utilizing real time linear array sonog corona with graded compression, doppler sonography and color-flow sonography. VESSELS IMAGED: External Iliac Vein (EIV) Common Femoral Vein Deep Femoral Vein Greater Saphenous Vein * Femoral Vein Popliteal Vein Small Saphenous Vein * Proximal Calf Veins (* superficial vessels) Grayscale, color doppler, spectral doppler imaging performed of the deep veins of the lower extremiti es. There is normal flow, compressibility, vascular waveforms. Right Leg: Negative for DVT Left Leg: Negative for DVT IMPRESSION: No sonographic evidence of deep venous thrombosis within either lower extremity.
--- NOTE | 2018-08-21 09:26 | P.ARTDOP ---
Arterial Doppler LOWER EXTREMITY ARTERIAL DOPPLER: DATE OF SERVICE: 08/15/2018 Reason for study: Bilateral lower leg ulcers. Doppler waveforms: Multiphasic bilaterally throughout. Pulse volume recording: Normal configuration including digits. Pressure gradients: None. Ankle-brachial indices: Greater than 1 bilaterally. Toe pressures: 86 on the right, 102 on the left Impression: Normal study.
== END | disposition home or self-care (01) ==
LOC: RADUSWWP 13:39
PROVIDERS: ATTEND Nurse Practitioner Family
DX: M79.604 Pain in right leg (principal); M79.605 Pain in left leg
CPT/HCPCS: 93923; 93970

== ENCOUNTER → 2019-01-27 | Outpatient (CLI) | payer OTHER | END | disposition home or self-care (01) | LOC: RADMRIMAIN 13:02 | DX: Z53.9 Procedure and treatment not carried out, unspecified reason (principal) ==

== ENCOUNTER → 2019-04-08 | Outpatient (CLI) | payer OTHER ==
--- NOTE | 2019-04-08 11:40 | P.PAINCN ---
History of Present Illness - Reason for Consult Consult date: 04/08/19 - Chief Complaint Low back pain - History of Present Illness History and Physical: Very pleasant 64-year-old gentleman who presents as a new patient to the [facility] pain clinic. Patient to us by his primary care physician with a history of low back pain the past 5 years. Patient states that it has progressively worsened to the point where he can't walk more than 200 feet until he expresses severe cramping, soreness, aching pains in his lower extremity is mostly in his thighs that is relieved immediately with sitting. He denies any radicular pain or pain in the seated position. He does also admit to some diffuse low back pain that is intermittent in nature. He states laying flat or walking in the upright position exacerbates his pain. Symptoms of been this severe for the past 3-6 months. He was evaluated by an orthopedic surgeon who reviewed his MRI and said that he would not be a candidate for spine surgery. He denies any bowel or bladder incontinence, any saddle anesthesia, he does admit to an episode of getting out of bed and having significant lower extremity weakness that resolved. He's never seen a spine surgeon, never had epidural steroid injections, does stationary bike PT at home, never been to a chiropractor. Review of Systems: In addition to above, 13-point review of systems is also negative for chest pain, shortness of breath, changes in vision, changes in hearing, new onset weakness, abdominal pain, diarrhea, extreme fatigue, malaise, fever, skin changes, homicidal or suicidal ideation, or bowel or bladder incontinence. Vital Signs: Blood pressure 167/ 76, heart rate 78, saturation 98%. Gen: WDWN, AAOx3, NAD, morbidly obese HEENT: NCAT, EOMI, hearing grossly normal Pulm: resp unlabored Abd: soft, NT, ND Neck: supple, trachea midline ROM in flexion lumbar spine: reduced at 30 ROM in extension lumbar spine: Pain with regular extension paravertebral tenderness: + + Facet loading: + + Bilateral SI joint tenderness: + R > L Bi's test: + R > L Straight leg raise: +RLE 20 degrees Muscular skeletal exam: 5 out of 5 muscle strength in upper and lower extremities and bicep, tricep, quadricep, gastric venous muscles. Bilateral patellar reflexes 1+, ankle reflex 2 out of 4. Negative Yepez sign, negative Lhermitte, negative myoclonus Neuro: CN II-XII grossly intact, muscle strength lower extremities PRESERVED Imaging: MRI lumbar spine: L1-L2: Moderate to advanced facet degenerative changes effacing posterior lateral thecal sac. Moderate broad based posterior disc protrusion effacing anterior thecal sac. Mild to moderate bilateral neuroforaminal narrowing. L2-L3: Advance broad disc bulge effacing anterior thecal sac. Mild facet degenerative changes effacing posterior lateral thecal sac. Mild to moderate bilateral anterior/inferior neuroforaminal narrowing. L3-L4: Moderate to advanced facet degenerative changes bilaterally. Moderate to advanced broad-based disc bulge effacing anterior thecal sac. Mild to moderate bilateral anterior inferior neuroforaminal narrowing. L4-L5: Advanced degenerative changes effacing posterior lateral thecal sac. Advance broad disc bulge effacing anterior thecal sac. Most prominent spinal canal stenosis at this level. Advance bilateral neuroforaminal narrowing with bilateral L4 nerve encroachment and sagittal images. L5-S1: Advanced facet degenerative changes bilaterally. Moderate and advanced broad disc bulge. Spinal canal is more reserve this level. Moderate right greater than left bilateral neuroforaminal narrowing. Assessment/Plan: 1. lumbar spinal stenosis at L4-5 2. lumbar radiculopathy 3. lumbar spondylosis without myelopathy Plan: 1. Explanation: Opioid and psychological risk scores were reviewed. Diagnoses, prognoses, and multiple treatment options including but not limited to physical therapy, interventional therapies, adjuvant medical therapies, narcotic medication therapies, and surgery were discussed with the patient and all questions were answered to the patient's satisfaction. 2. Opioid agreement: No opiates prescribed. 3. Counseling: The patient was counseled extensively on diet, body mass index, and exercise. We specifically talked about benefits of a low carbohydrate low salt diet. We discussed ketogenic diet considering the patient is an insulin- dependent diabetic. 4. Procedures: We'll schedule for bilateral transforaminal epidural steroid injections at L4-L5. 5. Consultations: None 6. Investigations: None required at the moment. MRI was reviewed in detail with patient. 7. Medications: None, prescribed by primary care physician. 8. Disposition: f/u for procedure as scheduled Discussed the risks and benefits of the procedure plan. Discussed bleeding, rare nerve injury, infection. All questions were answered and patient wishes to proceed. PQRS measures: 1-Patient's medications are documented in the chart. 2-Tobacco use is negativeeling given 3-Patient has not had a pneumococcal vaccine. 4-Advanced care planning discussed, patient unable to give. 5-Opioid contract signed with the patient. 6-Pain positive, follow-up visit or procedure scheduled 7-Patient's blood pressure measured and documenis elevated and informed to follow up with his primary care doctor.. 8-Patient's weight was measured, and body mass index ABOVE the normal limits, and counseling was done. Patient instructed to follow up with PCP. 9-Patient WAS NOT identified as an unhealthy alcohol user. Past Medical History Past Medical History: Cancer, Diabetes Mellitus, GERD/Reflux, Hypertension, Osteoarthritis (OA), Skin Disorder, Sleep Apnea/CPAP/BIPAP Additional Past Medical History / Comment(s): CHRONIC LYMPHOCYTIC LEUKEMIA, BACK AND HIP PAIN, FREQUENT URINATION/urgency, SOB w/exertion(going to see game attendant soon), hx gout, History of Any Multi-Drug Resistant Organisms: None Reported Past Surgical History: Joint Replacement Additional Past Surgical History / Comment(s): left hip replacement Past Anesthesia/Blood Transfusion Reactions: No Reported Reaction Smoking Status: Current some day smoker - Past Family History Father Family Medical History: Coronary Artery Disease (CAD) Mother Family Medical History: No Reported History Medications and Allergies Home Medications Medication Instructions Recorded Confirmed Type ARIPiprazole [Abilify] 2.5 mg PO HS 08/03/15 04/04/19 History Ibuprofen [Motrin] 600 mg PO TID 08/03/15 04/04/19 History Lisinopril [Zestril] 20 mg PO BID 08/03/15 04/04/19 History buPROPion HCL [Wellbutrin] 100 mg PO BID 08/03/15 04/04/19 History Atorvastatin [Lipitor] 20 mg PO HS 03/11/18 04/04/19 History Gabapentin [Neurontin] 600 mg PO TID 03/11/18 04/04/19 History Latanoprost [Xalatan 0.005%] 1 drop BOTH EYES HS 03/11/18 04/04/19 History Lidocaine 5% Patch [Lidoderm 5% 1 patch TOPICAL DAILY PRN 03/11/18 04/04/19 History Patch] Oxybutynin Chloride [Ditropan XL] 5 mg PO DAILY 03/11/18 04/04/19 History Potassium Chloride [K-Tab ER] 10 meq PO DAILY 03/11/18 04/04/19 History Terazosin [Hytrin] 6 mg PO HS 03/11/18 04/04/19 History Multivitamins, Thera [Multivitamin 1 tab PO DAILY #30 tablet 03/15/18 04/04/19 Rx (formulary)] INSULIN ASPART (NovoLOG) [NovoLOG 35 unit SQ AC-TID 08/05/18 04/04/19 History (formulary)] Insulin Aspart [NovoLOG] See Protocol SQ ACHS 08/05/18 04/04/19 History Insulin Glargine [Lantus] 40 unit SQ BID-W/MEALS 08/05/18 04/04/19 History Aspirin 162 mg PO DAILY 04/04/19 04/04/19 History Furosemide [Lasix] 40 mg PO DAILY 04/04/19 04/04/19 History Spironolactone [Aldactone] 25 mg PO DAILY 04/04/19 04/04/19 History Allergies Allergy/AdvReac Type Severity Reaction Status Date / Time metformin Allergy Unknown Abdominal Verified 04/04/19 13:42 Pain and Nausea metformin HCl Allergy Unknown Abdominal Verified 04/04/19 13:42 [From Glucophage] Pain and Nausea PQRS Measure Charge Sheet PQRS Narrative: Smoking Status Current some day smoker Pain Intensity [Back] 7 Hx Alcohol Use (MH) Yes Home Medications: Ambulatory Orders ARIPiprazole [Abilify] 2.5 mg PO HS 08/03/15 Ibuprofen [Motrin] 600 mg PO TID 08/03/15 Lisinopril [Zestril] 20 mg PO BID 08/03/15 buPROPion HCL [Wellbutrin] 100 mg PO BID 08/03/15 Atorvastatin [Lipitor] 20 mg PO HS 03/11/18 Gabapentin [Neurontin] 600 mg PO TID 03/11/18 Latanoprost [Xalatan 0.005%] 1 drop BOTH EYES HS 03/11/18 Lidocaine 5% Patch [Lidoderm 5% Patch] 1 patch TOPICAL DAILY PRN 03/11/18 Oxybutynin Chloride [Ditropan XL] 5 mg PO DAILY 03/11/18 Potassium Chloride [K-Tab ER] 10 meq PO DAILY 03/11/18 Terazosin [Hytrin] 6 mg PO HS 03/11/18 Multivitamins, Thera [Multivitamin (formulary)] 1 tab PO DAILY #30 tablet 03/15/18 INSULIN ASPART (NovoLOG) [NovoLOG (formulary)] 35 unit SQ AC-TID 08/05/18 Insulin Aspart [NovoLOG] See Protocol SQ ACHS 08/05/18 Insulin Glargine [Lantus] 40 unit SQ BID-W/MEALS 08/05/18 Aspirin 162 mg PO DAILY 04/04/19 Furosemide [Lasix] 40 mg PO DAILY 04/04/19 Spironolactone [Aldactone] 25 mg PO DAILY 04/04/19
== END | disposition home or self-care (01) ==
LOC: PNWHC3 10:55
PROVIDERS: ATTEND Anesthesiology
DX: M48.061 Spinal stenosis, lumbar region without neurogenic claudication (principal); M47.26 Other spondylosis with radiculopathy, lumbar region; E11.9 Type 2 diabetes mellitus without complications; M19.90 Unspecified osteoarthritis, unspecified site; K21.9 Gastro-esophageal reflux disease without esophagitis; G47.33 Obstructive sleep apnea (adult) (pediatric); Z79.891 Long term (current) use of opiate analgesic; Z79.899 Other long term (current) drug therapy; Z79.4 Long term (current) use of insulin; Z79.82 Long term (current) use of aspirin; Z88.8 Allergy status to other drugs, medicaments and biological substances; Z99.89 Dependence on other enabling machines and devices
CPT/HCPCS: 99211

== ENCOUNTER 2019-05-07 06:36 | Day surgery (SDC) | payer OTHER ==
[2019-05-01 12:33] VITALS: BMI 43.0
[~2019-05-07 06:36] MED LIST: ALPRAZolam 0.25 MG TAB PO PRN; ALPRAZolam 0.5 MG TAB PO PRN; ASPIRIN 325 MG TAB PO STA; ATORVASTATIN 80 MG TAB PO STA; NITROGLYCERIN SL TABS 0.4 MG TAB SUBLINGUAL PRN; SODIUM CHLORIDE 0.9% 1,000 ML in EMPTY BAG 1 BAG IV ONE
[2019-05-07 07:19] VITALS: TEMP 98
[2019-05-07 07:20] LABS: Glucose,Whole Blood 226 mg/dL (75-99)
[2019-05-07] MEDS ORDERED: MIDAZOLAM PF (FBP) 2 MG/2 ML VIAL IV ONE (07:39)
[2019-05-07] MEDS ORDERED: fentaNYL (PF) 50 MCG/ML 2 ML AMP IV ONE (07:39)
[2019-05-07] MEDS ORDERED: LIDOCAINE 1% INJ 10MG/ML (20 ML MDV) SQ ONE (07:41)
[2019-05-07] MEDS ORDERED: IOPAMIDOL-370 125ML BTL INJ ONE (07:48)
[2019-05-07] MEDS ORDERED: RX INFO: IV CONTRAST WAS GIVEN 1 EACH MISC MISCELLANE PRN (07:59)
[2019-05-07] MEDS ORDERED: SODIUM CHLORIDE 0.9% 1,000 ML IV SCH (08:00)
--- NOTE | 2019-05-07 08:25 | CC ---
CARDIAC CATHETERIZATION REPORT INDICATION: Shortness of breath with abnormal stress test showing a fixed inferior wall defect with mild LV dysfunction. The patient has history of chronic lymphocytic leukemia and sees an oncologist in town and has elevated white cell count, which is chronic and stable. PROCEDURE NOTE: After obtaining informed consent, left heart catheterization and coronary angiogram were performed via the right femoral artery using standard Patti catheters. Patient tolerated the procedure well without any obvious immediate complications. A femoral angiogram was performed and Angio-Seal was deployed for hemostasis. Patient received moderate conscious sedation. Total sedation time was 13 minutes. FINDINGS: 1. HEMODYNAMICS: Left ventricular end-diastolic pressure is 12 mm. There is no significant gradient across the aortic valve. 2. LEFT VENTRICULOGRAM: Left ventriculogram is not performed. 3. ANGIOGRAPHIC DATA: Left Main Coronary Artery: Left main coronary artery is a normal-sized vessel and is free of stenosis. Divides into left anterior descending coronary artery and circumflex coronary artery. LAD and its branches, circumflex coronary artery and its branches are free of significant stenosis. Right coronary artery is a large dominant vessel that shows a 50% stenosis in the PDA branch. CONCLUSION: A 50% stenosis involving the PDA. PLAN: I reviewed angiographic data with the patient and told him that his management is going to be in the form of risk factor modification and medical therapy. MMODL / IJN: [id number] /
--- NOTE | 2019-05-07 08:31 | LTR ---
May 07, 2019 Re: Richard Sylvester Dear Ingrid: I performed cardiac catheterization on Richard Sylvester. A detailed catheterization note is enclosed for your records. Thank you for giving me the privilege to participate in this pleasant gentleman. Sincerely, MD LUZMARIA White / JULIO: [id number] /
[2019-05-07 11:49] VITALS: RESP 16
[2019-05-07 13:28] VITALS: BP 132/72; PULSE 66
== END 2019-05-07 13:28 | disposition home or self-care (01) ==
LOC: CATHCVL 06:36
PROVIDERS: ATTEND Internal Medicine Cardiovascular Disease
DX: I25.10 Atherosclerotic heart disease of native coronary artery without angina pectoris (principal); C91.10 Chronic lymphocytic leukemia of B-cell type not having achieved remission; E11.9 Type 2 diabetes mellitus without complications; I10 Essential (primary) hypertension; F17.210 Nicotine dependence, cigarettes, uncomplicated; Z79.82 Long term (current) use of aspirin; Z79.899 Other long term (current) drug therapy
CPT/HCPCS: 93458; C1760; C1894; C1769; J2001; J3010; Q9967; J2250

== ENCOUNTER 2020-07-13 04:33 | Observation (INO) | payer OTHER, MEDICARE ==
[2020-07-13] MEDS ORDERED: SODIUM CHLORIDE 0.9% 1,000 ML IV ONE ×2 (04:50→06:08)
--- NOTE | 2020-07-13 04:56 | ED ---
General Adult HPI - General Chief complaint: Syncope Stated complaint: Fall Time Seen by Provider: 07/13/20 04:43 Source: patient, EMS Mode of arrival: EMS Limitations: no limitations - History of Present Illness Initial comments: This patient is 65-year-old man who presents here by ambulance to be evaluated for generalized weakness. Patient had tried to get up to use the bathroom tonight, felt extremely lightheaded and then fell to the ground then was too weak to get back up. The patient did acknowledge having some polyuria and polydipsia, and thinks that his blood sugar was elevated throughout the course yesterday. He states he also has been having dry mouth. Patient denies any injury as a result of the fall. Onset/Timin -: hour(s) Improves with: none Worsens with: none Associated Symptoms: weakness (Generalized) Treatments Prior to Arrival: none - Related Data Home Medications Medication Instructions Recorded Confirmed ARIPiprazole [Abilify] 2.5 mg PO HS 08/03/15 05/07/19 Ibuprofen [Motrin] 600 mg PO TID 08/03/15 05/07/19 buPROPion HCL [Wellbutrin] 100 mg PO BID 08/03/15 05/07/19 lisinopriL [Zestril] 20 mg PO BID 08/03/15 05/07/19 Atorvastatin [Lipitor] 20 mg PO HS 03/11/18 05/07/19 Gabapentin [Neurontin] 600 mg PO TID 03/11/18 05/07/19 Latanoprost [Xalatan 0.005%] 1 drop BOTH EYES HS 03/11/18 05/07/19 Lidocaine 5% Patch [Lidoderm 5% 1 patch TOPICAL DAILY PRN 03/11/18 05/07/19 Patch] Oxybutynin Chloride [Ditropan XL] 5 mg PO DAILY 03/11/18 05/07/19 Potassium Chloride [K-Tab ER] 10 meq PO DAILY 03/11/18 05/07/19 Terazosin [Hytrin] 6 mg PO HS 03/11/18 05/07/19 INSULIN ASPART (NovoLOG) [NovoLOG 35 unit SQ AC-TID 08/05/18 05/07/19 (formulary)] Insulin Aspart [NovoLOG] See Protocol SQ ACHS 08/05/18 05/07/19 Insulin Glargine [Lantus] 42 unit SQ BID-W/MEALS 08/05/18 05/07/19 Aspirin 162 mg PO DAILY 04/04/19 05/07/19 Furosemide [Lasix] 40 mg PO DAILY 04/04/19 05/07/19 Spironolactone [Aldactone] 25 mg PO DAILY 04/04/19 05/07/19 Previous Rx's Medication Instructions Recorded Multivitamins, Thera [Multivitamin 1 tab PO DAILY #30 tablet 03/15/18 (formulary)] Allergies Allergy/AdvReac Type Severity Reaction Status Date / Time metformin Allergy Unknown Abdominal Verified 05/01/19 12:24 Pain and Nausea metformin HCl Allergy Unknown Abdominal Verified 05/01/19 12:24 [From Glucophage] Pain and Nausea Review of Systems ROS Statement: Those systems with pertinent positive or pertinent negative responses have been documented in the HPI. ROS Other: All systems not noted in ROS Statement are negative. Constitutional: Reports: weakness. Denies: fever, chills Respiratory: Denies: cough, dyspnea Cardiovascular: Denies: chest pain, palpitations, orthopnea, edema, syncope Endocrine: Reports: fatigue, polydipsia, polyuria Gastrointestinal: Denies: abdominal pain, nausea, vomiting Genitourinary: Denies: dysuria, hematuria Musculoskeletal: Reports: back pain (Chronic) Skin: Denies: rash Neurological: Denies: headache, weakness, numbness, paresthesias, confusion Past Medical History Past Medical History: Cancer, Diabetes Mellitus, GERD/Reflux, Hypertension, O steoarthritis (OA), Skin Disorder, Sleep Apnea/CPAP/BIPAP Additional Past Medical History / Comment(s): CHRONIC LYMPHOCYTIC LEUKEMIA, BACK AND HIP PAIN, FREQUENT URINATION/urgency, SOB w/exertion(going to see heel top lift splitter soon), hx gout, SPINAL STENOSIS History of Any Multi-Drug Resistant Organisms: None Reported Past Surgical History: Joint Replacement Additional Past Surgical History / Comment(s): left hip replacement,. COLONOSCOPY Past Anesthesia/Blood Transfusion Reactions: No Reported Reaction Past Psychological History: Depression Smoking Status: Vaper Past Alcohol Use History: Occasional Past Drug Use History: Marijuana - Past Family History Father Family Medical History: Coronary Artery Disease (CAD) Mother Family Medical History: No Reported History General Exam Limitations: no limitations General appearance: alert, in no apparent distress Head exam: Present: atraumatic, normocephalic ENT exam: Present: mucous membranes dry Neck exam: Present: normal inspection, full ROM Respiratory exam: Present: normal lung sounds bilaterally. Absent: respiratory distress, wheezes, rales, rhonchi, stridor Cardiovascular Exam: Present: regular rate, normal rhythm, normal heart sounds. Absent: systolic murmur, diastolic murmur, rubs, gallop GI/Abdominal exam: Present: soft. Absent: distended, tenderness, guarding, rebound, rigid, mass Extremities exam: Present: normal inspection, normal capillary refill. Absent: tenderness, pedal edema, calf tenderness Neurological exam: Present: alert, oriented X3, CN II-XII intact. Absent: motor sensory deficit Skin exam: Present: warm, dry, intact, normal color. Absent: rash Course Vital Signs 07/13/20 04:35 Temperature 99.1 F Pulse Rate 95 Respiratory 18 Rate Blood Pressure 102/46 O2 Sat by Pulse 96 Oximetry EKG Findings - EKG Results: EKG: interpreted by ERMD, sinus rhythm (Rate 89 bpm), normal axis, normal ST/T - Blocks, Richardson, Hypertrophy, ST Abn: AV and intraventricular conduction: 1 AV block - RI, Pacemaker, Normal: Myocardial infarction: anterior RI (old age or indeterminate) Medical Decision Making - Lab Data Result diagrams: 07/13/20 05:29 07/13/20 05:27 Lab Results 07/13/20 07/13/20 07/13/20 Range/Units 05:17 05:17 05:17 WBC (3.8-10.6) k/uL RBC (4.30-5.90) m/uL Hgb (13.0-17.5) gm/dL Hct (39.0-53.0) % MCV (80.0-100.0) fL MCH (25.0-35.0) pg MCHC (31.0-37.0) g/dL RDW (11.5-15.5) % Plt Count (150-450) k/uL MPV Neutrophils % Neutrophils % (Manual) % Lymphocytes % Lymphocytes % (Manual) % Monocytes % Eosinophils % Basophils % Neutrophils # Neutrophils # (Manual) (1.3-7.7) k/uL Lymphocytes # Lymphocytes # (Manual) (1.0-4.8) k/uL Monocytes # Eosinophils # Basophils # Nucleated RBCs (0-0) /100 WBC Manual Slide Review Anisocytosis (manual) PT 10.4 (9.0-12.0) sec INR 1.0 (<1.2) APTT 17.9 L (22.0-30.0) sec Sodium (137-145) mmol/L Potassium (3.5-5.1) mmol/L Chloride (98-107) mmol/L Carbon Dioxide (22-30) mmol/L Anion Gap mmol/L BUN (9-20) mg/dL Creatinine (0.66-1.25) mg/dL Est GFR (CKD-EPI)AfAm (>60 ml/min/1.73 sqM) Est GFR (CKD-EPI)NonAf (>60 ml/min/1.73 sqM) Glucose (74-99) mg/dL POC Glucose (mg/dL) (75-99) mg/dL POC Glu Senior Construction Project Manager ID Plasma Lactic Acid Hans 2.5 H* (0.7-2.0) mmol/L Calcium (8.4-10.2) mg/dL Total Bilirubin (0.2-1.3) mg/dL AST (17-59) U/L ALT (4-49) U/L Alkaline Phosphatase (38-126) U/L Troponin I 0.022 (0.000-0.034) ng/mL Total Protein (6.3-8.2) g/dL Albumin (3.5-5.0) g/dL Urine Color Urine Appearance (Clear) Urine pH (5.0-8.0) Ur Specific [place] (1.001-1.035) Urine Protein (Negative) Urine Glucose (UA) (Negative) Urine Ketones (Negative) Urine Blood (Negative) Urine Nitrite (Negative) Urine Bilirubin (Negative) Urine Urobilinogen (<2.0) mg/dL Ur Leukocyte Esterase (Negative) Urine RBC (0-5) /hpf Urine WBC (0-5) /hpf Ur Squamous Epith Cells (0-4) /hpf Hyaline Casts (0-2) /lpf Urine Mucus (None) /hpf 07/13/20 07/13/20 07/13/20 Range/Units 05:27 05:29 06:15 WBC 72.6 H* (3.8-10.6) k/uL RBC 4.32 (4.30-5.90) m/uL Hgb 13.5 (13.0-17.5) gm/dL Hct 41.6 (39.0-53.0) % MCV 96.3 (80.0-100.0) fL MCH 31.3 (25.0-35.0) pg MCHC 32.5 (31.0-37.0) g/dL RDW 15.7 H (11.5-15.5) % Plt Count 161 (150-450) k/uL MPV 7.3 Neutrophils % Not Reportable Neutrophils % (Manual) 7 % Lymphocytes % Not Reportable Lymphocytes % (Manual) 93 % Monocytes % Not Reportable Eosinophils % Not Reportable Basophils % Not Reportable Neutrophils # Not Reportable Neutrophils # (Manual) 5.08 (1.3-7.7) k/uL Lymphocytes # Not Reportable Lymphocytes # (Manual) 67.52 H (1.0-4.8) k/uL Monocytes # Not Reportable Eosinophils # Not Reportable Basophils # Not Reportable Nucleated RBCs 0 (0-0) /100 WBC Manual Slide Review Performed Anisocytosis (manual) Present PT (9.0-12.0) sec INR (<1.2) APTT (22.0-30.0) sec Sodium 133 L (137-145) mmol/L Potassium 5.7 H (3.5-5.1) mmol/L Chloride 105 (98-107) mmol/L Carbon Dioxide 22 (22-30) mmol/L Anion Gap 6 mmol/L BUN 25 H (9-20) mg/dL Creatinine 1.46 H (0.66-1.25) mg/dL Est GFR (CKD-EPI)AfAm 58 (>60 ml/min/1.73 sqM) Est GFR (CKD-EPI)NonAf 50 (>60 ml/min/1.73 sqM) Glucose 258 H (74-99) mg/dL POC Glucose (mg/dL) (75-99) mg/dL POC Glu Senior Construction Project Manager ID Plasma Lactic Acid Hans (0.7-2.0) mmol/L Calcium 8.8 (8.4-10.2) mg/dL Total Bilirubin 1.7 H (0.2-1.3) mg/dL AST 213 H (17-59) U/L ALT 62 H (4-49) U/L Alkaline Phosphatase 86 (38-126) U/L Troponin I (0.000-0.034) ng/mL Total Protein 6.2 L (6.3-8.2) g/dL Albumin 4.0 (3.5-5.0) g/dL Urine Color Yellow Urine Appearance Clear (Clear) Urine pH 5.5 (5.0-8.0) Ur Specific [place] 1.025 (1.001-1.035) Urine Protein 1+ H (Negative) Urine Glucose (UA) 4+ H (Negative) Urine Ketones Negative (Negative) Urine Blood Large H (Negative) Urine Nitrite Negative (Negative) Urine Bilirubin Negative (Negative) Urine Urobilinogen <2.0 (<2.0) mg/dL Ur Leukocyte Esterase Negative (Negative) Urine RBC 1 (0-5) /hpf Urine WBC 4 (0-5) /hpf Ur Squamous Epith Cells 1 (0-4) /hpf Hyaline Casts 8 H (0-2) /lpf Urine Mucus Occasional H (None) /hpf 15/20 Range/Units 06:29 WBC (3.8-10.6) k/uL RBC (4.30-5.90) m/uL Hgb (13.0-17.5) gm/dL Hct (39.0-53.0) % MCV (80.0-100.0) fL MCH (25.0-35.0) pg MCHC (31.0-37.0) g/dL RDW (11.5-15.5) % Plt Count (150-450) k/uL MPV Neutrophils % Neutrophils % (Manual) % Lymphocytes % Lymphocytes % (Manual) % Monocytes % Eosinophils % Basophils % Neutrophils # Neutrophils # (Manual) (1.3-7.7) k/uL Lymphocytes # Lymphocytes # (Manual) (1.0-4.8) k/uL Monocytes # Eosinophils # Basophils # Nucleated RBCs (0-0) /100 WBC Manual Slide Review Anisocytosis (manual) PT (9.0-12.0) sec INR (<1.2) APTT (22.0-30.0) sec Sodium (137-145) mmol/L Potassium (3.5-5.1) mmol/L Chloride (98-107) mmol/L Carbon Dioxide (22-30) mmol/L Anion Gap mmol/L BUN (9-20) mg/dL Creatinine (0.66-1.25) mg/dL Est GFR (CKD-EPI)AfAm (>60 ml/min/1.73 sqM) Est GFR (CKD-EPI)NonAf (>60 ml/min/1.73 sqM) Glucose (74-99) mg/dL POC Glucose (mg/dL) 218 H (75-99) mg/dL POC Glu Senior Construction Project Manager ID Sheela Gonzalez Plasma Lactic Acid Hans (0.7-2.0) mmol/L Calcium (8.4-10.2) mg/dL Total Bilirubin (0.2-1.3) mg/dL AST (17-59) U/L ALT (4-49) U/L Alkaline Phosphatase (38-126) U/L Troponin I (0.000-0.034) ng/mL Total Protein (6.3-8.2) g/dL Albumin (3.5-5.0) g/dL Urine Color Urine Appearance (Clear) Urine pH (5.0-8.0) Ur Specific [place] (1.001-1.035) Urine Protein (Negative) Urine Glucose (UA) (Negative) Urine Ketones (Negative) Urine Blood (Negative) Urine Nitrite (Negative) Urine Bilirubin (Negative) Urine Urobilinogen (<2.0) mg/dL Ur Leukocyte Esterase (Negative) Urine RBC (0-5) /hpf Urine WBC (0-5) /hpf Ur Squamous Epith Cells (0-4) /hpf Hyaline Casts (0-2) /lpf Urine Mucus (None) /hpf Disposition Clinical Impression: Syncope, Acute kidney injury, Lactic acid acidosis, Dehydration, Leukocytosis Disposition: ADMITTED IP TO THIS [facility] Condition: Fair
[2020-07-13 05:51] LABS: Partial Thromboplastin Time 17.9 sec (22.0-30.0); Prothrombin Time 10.4 sec (9.0-12.0)
[2020-07-13 05:57] LABS: Calcium 8.8 mg/dL (8.4-10.2); Potassium 5.7 mmol/L (3.5-5.1); Total Bilirubin 1.7 mg/dL (0.2-1.3); Total Protein 6.2 g/dL (6.3-8.2)
[2020-07-13 06:02] LABS: HCT 41.6 % (39.0-53.0); HGB 13.5 gm/dL (13.0-17.5); MCH 31.3 pg (25.0-35.0); MCHC 32.5 g/dL (31.0-37.0); MCV 96.3 fL (80.0-100.0); Mean Platelet Volume 7.3; Platelet Count 161 k/uL (150-450); RBC 4.32 m/uL (4.30-5.90); RDW 15.7 % (11.5-15.5)
[2020-07-13 06:05] LABS: WBC 72.6 k/uL (3.8-10.6)
[2020-07-13] MEDS ORDERED: SODIUM CHLORIDE 0.9% 1,000 ML IV STA (06:08)
--- NOTE | 2020-07-13 06:21 | XR ---
EXAM: XR Chest, 1 View CLINICAL HISTORY: ITS.REASON XR Reason: weakness TECHNIQUE: Frontal view of the chest. COMPARISON: 07/05/18 FINDINGS: Limitations: Underpenetrated technique limits evaluation. Lungs: Slight increased opacity in the right infrahilar region. This may reflect atelectasis or infiltrate. Again seen are streaky densities in the left lung base likely scarring. Pleural space: Unremarkable. No pneumothorax. Heart: Cardiovascular silhouette, upper limits of normal. Mediastinum: Mildly tortuous thoracic aorta accentuated by low lung volume. Bones/joints: Unremarkable. IMPRESSION: Possible developing infiltrate versus atelectasis in the right lower lung.
[2020-07-13 06:28] LABS: Appearance,Urine Clear (Clear); Bilirubin,Urine Negative (Negative); Blood,Urine Large (Negative); Color,Urine Yellow; Glucose,Urine (UA) 4+ (Negative); Hyaline Casts,Urine 8 /lpf (0-2); Ketones,Urine Negative (Negative); Leukocyte Esterase,Urine Negative (Negative); Mucus,Urine Occasional /hpf; Nitrite,Urine Negative (Negative); PH, Urine 5.5 (5.0-8.0); Protein,Urine 1+ (Negative); RBC,Urine 1 /hpf (0-5); Specific Gravity,Urine 1.025 (1.001-1.035); Squamous Epithelial Cell,Urine 1 /hpf (0-4); Urobilinogen,Urine <2.0 mg/dL (<2.0); WBC,Urine 4 /hpf (0-5)
[2020-07-13 06:31] LABS: Glucose,Whole Blood 218 mg/dL (75-99)
[2020-07-13 06:35] LABS: Anisocytosis (M) Present; Lymphocytes # (M) 67.52 k/uL (1.0-4.8); Neutrophils # (M) 5.08 k/uL (1.3-7.7); Neutrophils % (M) 7 %; Nucleated Red Blood Cells 0 /100 WBC (0-0); Total Cells Counted 100
[2020-07-13] MEDS ORDERED: NALOXONE 0.4 MG/ML 1 ML VIAL IV PRN (06:35)
[2020-07-13 11:31] LABS: Glucose,Whole Blood 232 mg/dL (75-99)
[2020-07-13] MEDS ORDERED: SODIUM POLYSTYRENE SULFONATE 15 GM/60 ML BOTTLE PO STA (11:38)
[2020-07-13] MEDS: ASPIRIN 81 MG PO SCH (12:21)
[2020-07-13] MEDS: INSULIN ASPART (NovoLOG) 100 UNIT/ML VIAL SQ SCH ×4 (12:22→21:03)
[2020-07-13] MEDS: MULTIVITAMINS, THERA 1 EACH TAB PO SCH (12:22)
[2020-07-13] MEDS: METOPROLOL SUCCINATE (ER) 25 MG TAB.ER.24H PO SCH (12:22)
--- NOTE | 2020-07-13 12:43 | P.CONS ---
History of Present Illness - Reason for Consult Consult date: 07/13/20 CLL Requesting physician: Pedrito Casanova - Chief Complaint syncopy, OPAL, dehydration - History of Present Illness Mr. Sylvester is a very pleasant 65-year-old male patient who was diagnosed by Dr. Garcia with CLL in 2000. He established with Dr. Vasquez in 2018. Patient has never required treatment for CLL. His white blood cell count typically runs in the 70-80,000 range. His absolute lymphocyte count runs in the same range. He follows with Dr. Vasquez twice a year for f/u monitoring and lab work. He was last seen in January 2020. He has a past medical history of diabetes mellitus type 2, HTN, hyperlipidemia, clinical depression, diabetic neuropathy. He is currently admitted with syncope and dehydration, labs showing increased LFTs, lactic acid and a creatinine of 1.46 on admission. He denies fever, N,V, chest pain, abd pain, he has not had a BM recently to comment on status of bowels. No bleeding, new swelling or pain. Review of Systems 14 point review of systems is negative except as stated in HPI Past Medical History Past Medical History: Cancer, Diabetes Mellitus, GERD/Reflux, Hypertension, Osteoarthritis (OA), Skin Disorder, Sleep Apnea/CPAP/BIPAP Additional Past Medical History / Comment(s): CHRONIC LYMPHOCYTIC LEUKEMIA, BACK AND HIP PAIN, FREQUENT URINATION/urgency, SOB w/exertion, hx gout, SPINAL STENOSIS, BILATERAL LEG CELLULITIS History of Any Multi-Drug Resistant Organisms: None Reported Past Surgical History: Joint Replacement Additional Past Surgical History / Comment(s): left hip replacement,. COLONOSCOPY Past Anesthesia/Blood Transfusion Reactions: No Reported Reaction Past Psychological History: Depression Smoking Status: Vaper Past Alcohol Use History: Occasional Additional Past Alcohol Use History / Comment(s): SMOKES e-cig daily, occasional cigars,. STARTED SMOKING AGE 16. quit cigarettes 2-3 yrs ago Past Drug Use History: Marijuana Additional Drug Use History / Comment(s): OCCASIONALLY SMOKES MARIJUANA - Past Family History Father Family Medical History: Coronary Artery Disease (CAD) Mother Family Medical History: No Reported History Medications and Allergies Home Medications Medication Instructions Recorded Confirmed Type ARIPiprazole [Abilify] 2.5 mg PO HS 08/03/15 07/13/20 History buPROPion HCL [Wellbutrin] 100 mg PO BID 08/03/15 07/13/20 History lisinopriL [Zestril] 20 mg PO BID 08/03/15 07/13/20 History Atorvastatin [Lipitor] 20 mg PO HS 03/11/18 07/13/20 History Gabapentin [Neurontin] 600 mg PO TID 03/11/18 07/13/20 History Latanoprost [Xalatan 0.005%] 1 drop BOTH EYES HS 03/11/18 07/13/20 History Lidocaine 5% Patch [Lidoderm 5% 1 patch TOPICAL DAILY PRN 03/11/18 07/13/20 History Patch] Potassium Chloride [K-Tab ER] 10 meq PO DAILY 03/11/18 07/13/20 History Terazosin [Hytrin] 6 mg PO HS 03/11/18 07/13/20 History Multivitamins, Thera [Multivitamin 1 tab PO DAILY #30 tablet 03/15/18 07/13/20 Rx (formulary)] INSULIN ASPART (NovoLOG) [NovoLOG 35 unit SQ AC-TID 08/05/18 07/13/20 History (formulary)] Insulin Glargine [Lantus] 42 unit SQ BID 08/05/18 07/13/20 History Furosemide [Lasix] 40 mg PO DAILY 04/04/19 07/13/20 History Spironolactone [Aldactone] 25 mg PO DAILY 04/04/19 07/13/20 History Aspirin EC [Ecotrin Low Dose] 81 mg PO DAILY 07/13/20 07/13/20 History Empagliflozin [Jardiance] 10 mg PO DAILY 07/13/20 07/13/20 History Metoprolol Succinate [Toprol XL] 25 mg PO DAILY 07/13/20 07/13/20 History Oxybutynin Chloride [Ditropan] 5 mg PO DAILY 07/13/20 07/13/20 History Allergies Allergy/AdvReac Type Severity Reaction Status Date / Time metformin AdvReac Unknown Abdominal Verified 07/13/20 08:31 Pain and Nausea metformin HCl AdvReac Unknown Abdominal Verified 07/13/20 08:31 [From Glucophage] Pain and Nausea Physical Exam Vitals: Vital Signs Temp Pulse Pulse Resp BP BP Pulse Ox 07/13/20 08:07 97.5 F L 94 18 162/65 100 07/13/20 06:50 98.2 F 92 16 92/54 97 07/13/20 05:49 88 18 103/47 98 07/13/20 04:35 99.1 F 95 18 102/46 96 Intake and Output 07/12/20 07/13/20 07/13/20 22:59 06:59 14:59 Other: Voiding Method Urinal Weight 140.614 kg 140.614 kg - Constitutional General appearance: cooperative, morbidly obese, no acute distress - EENT Eyes: anicteric sclerae, EOMI ENT: hearing grossly normal, normal oropharynx - Neck Neck: no lymphadenopathy - Respiratory Respiratory: bilateral: CTA - Cardiovascular Rhythm: regular Heart sounds: normal: S1, S2 Abnormal Heart Sounds: no systolic murmur, no diastolic murmur, no rub, no S3 Gallop, no S4 Gallop, no click, no other leg Peripheral Edema: bilateral: Trace - Gastrointestinal General gastrointestinal: no absent bowel sounds, no decreased bowel sounds, no distended, no hepatomegaly, no hyperactive bowel sounds, normal bowel sounds, no organomegaly, no rigid, no scaphoid, soft, no splenomegaly, tenderness (right upper quadrant), no umbilical hernia, no ventral hernia - Integumentary dry skin on the feet - Neurologic Neurologic: CNII-XII intact - Musculoskeletal Musculoskeletal: strength equal bilaterally - Psychiatric Psychiatric: A&O x's 3, appropriate affect, intact judgment & insight Results CBC & Chem 7: 07/13/20 05:29 07/13/20 05:27 Labs: Abnormal Lab Results - Last 24 Hours (Table) 07/13/20 07/13/20 07/13/20 Range/Units 05:17 05:17 05:27 WBC (3.8-10.6) k/uL RDW (11.5-15.5) % Lymphocytes # (Manual) (1.0-4.8) k/uL APTT 17.9 L (22.0-30.0) sec Sodium 133 L (137-145) mmol/L Potassium 5.7 H (3.5-5.1) mmol/L BUN 25 H (9-20) mg/dL Creatinine 1.46 H (0.66-1.25) mg/dL Glucose 258 H (74-99) mg/dL POC Glucose (mg/dL) (75-99) mg/dL Plasma Lactic Acid Hans 2.5 H* (0.7-2.0) mmol/L Total Bilirubin 1.7 H (0.2-1.3) mg/dL AST 213 H (17-59) U/L ALT 62 H (4-49) U/L Total Protein 6.2 L (6.3-8.2) g/dL Urine Protein (Negative) Urine Glucose (UA) (Negative) Urine Blood (Negative) Hyaline Casts (0-2) /lpf Urine Mucus (None) /hpf 07/13/20 07/13/20 07/13/20 Range/Units 05:29 06:15 06:29 WBC 72.6 H* (3.8-10.6) k/uL RDW 15.7 H (11.5-15.5) % Lymphocytes # (Manual) 67.52 H (1.0-4.8) k/uL APTT (22.0-30.0) sec Sodium (137-145) mmol/L Potassium (3.5-5.1) mmol/L BUN (9-20) mg/dL Creatinine (0.66-1.25) mg/dL Glucose (74-99) mg/dL POC Glucose (mg/dL) 218 H (75-99) mg/dL Plasma Lactic Acid Hans (0.7-2.0) mmol/L Total Bilirubin (0.2-1.3) mg/dL AST (17-59) U/L ALT (4-49) U/L Total Protein (6.3-8.2) g/dL Urine Protein 1+ H (Negative) Urine Glucose (UA) 4+ H (Negative) Urine Blood Large H (Negative) Hyaline Casts 8 H (0-2) /lpf Urine Mucus Occasional H (None) /hpf 07/13/20 07/13/20 Range/Units 08:13 11:27 WBC (3.8-10.6) k/uL RDW (11.5-15.5) % Lymphocytes # (Manual) (1.0-4.8) k/uL APTT (22.0-30.0) sec Sodium (137-145) mmol/L Potassium (3.5-5.1) mmol/L BUN (9-20) mg/dL Creatinine (0.66-1.25) mg/dL Glucose (74-99) mg/dL POC Glucose (mg/dL) 232 H (75-99) mg/dL Plasma Lactic Acid Hans 2.1 H* (0.7-2.0) mmol/L Total Bilirubin (0.2-1.3) mg/dL AST (17-59) U/L ALT (4-49) U/L Total Protein (6.3-8.2) g/dL Urine Protein (Negative) Urine Glucose (UA) (Negative) Urine Blood (Negative) Hyaline Casts (0-2) /lpf Urine Mucus (None) /hpf Chest x-ray: report reviewed, image reviewed (possible right lower lobe infiltrate versus atelectasis) Assessment and Plan (1) Chronic lymphocytic leukemia Narrative/Plan: Office chart review shows that patient's white blood cell count runs in the 70- 80 range, absolute lymphocyte count runs in the 70-80 range as well. Patient's hemoglobin and platelet counts are within normal limits. Nothing acutely from his CLL standpoint. Next Have requested an US of the liver due to new onset elevation of LFTs, c/o of right upper quadrant pain in the recent past Current Visit: No Status: Chronic Priority: Medium Code(s): C91.90 - LYMPHOID LEUKEMIA, UNSPECIFIED NOT HAVING ACHIEVED REMISSION SNOMED Code(s): 78702952 Plan: Doctor attests: I performed a history and physical examination of this patient, developed impression and plan of care, discussed with dictator. I agree with dictators note, documented as a scribe.
--- NOTE | 2020-07-13 12:54 | XR ---
EXAMINATION TYPE: XR knee limited RT DATE OF EXAM: 07/13/2020 COMPARISON: None HISTORY: Pain from fall TECHNIQUE: 2 view right knee FINDINGS: There is loss of the medial and lateral compartment joint space. Medial lateral femoral con dylar and tibial plateau spurring is present. Advanced patellofemoral joint space spurring and degene rative changes are present. Small joint effusion is present. IMPRESSION: 1. Advanced osteoarthritic degenerative change. 2. Small joint effusion
--- NOTE | 2020-07-13 12:55 | XR ---
EXAMINATION TYPE: XR Hip Complete LT DATE OF EXAM: 07/13/2020 COMPARISON: None HISTORY: Fall, pain TECHNIQUE: 2 view left hip FINDINGS: Femoral and acetabular components are present from a hip prosthesis. No acute fractures josy dent. Some hyperostosis is adjacent to the acetabulum. IMPRESSION: 1. No acute osseous abnormality. 2. Left hip prosthesis remains in position
--- NOTE | 2020-07-13 14:11 | P.HPIM ---
History of Present Illness 65-year-old male came in with complaints of generalized weakness and had syncope felt lightheaded and fell. Patient was still complaining of generalized weakness not feeling well. Patient doesn't have any fevers. Patient does have a leukocytosis secondary to his chronic lymphocytic leukemia. Denied any significant cough dysuria. Chest x-ray showed atelectasis. Patient is hypotensive on admission with a low blood pressure systolics in 90s. Patient does take lisinopril at home, along with Aldactone and Lasix. Patient to denied any history of congestive heart failure never had any CHF exacerbation because but does take Lasix for pedal edema. Patient is also found to have a hypokalemia secondary to lisinopril, acute renal failure, Aldactone. Patient is receiving IV fluids. Patient is found to have elevated lactic acid which improved now. EKG showed some Q waves and probable first-degree AV block beyond which is not significant. Hip x-ray knee x-ray did not reveal any fractures. Patient has mildly elevated liver enzymes ultrasound is being obtained because of that Review of Systems REVIEW OF SYSTEMS: CONSTITUTIONAL: No fever, no malaise, no fatigue. HEENT: No recent visual problems or hearing problems. Denied any sore throat. CARDIOVASCULAR: No chest pain, orthopnea, PND, no palpitations, . PULMONARY: No shortness of breath, no cough, no hemoptysis. GASTROINTESTINAL: No diarrhea, no nausea, no vomiting, no abdominal pain. NEUROLOGICAL: No headaches, no weakness, no numbness. HEMATOLOGICAL: Denies any bleeding or petechiae. GENITOURINARY: Denies any burning micturition, frequency, or urgency. MUSCULOSKELETAL/RHEUMATOLOGICAL: Denies any joint pain, swelling, or any muscle pain. ENDOCRINE: Denies any polyuria or polydipsia. The rest of the 14-point review of systems is negative. Past Medical History Past Medical History: Cancer, Diabetes Mellitus, GERD/Reflux, Hypertension, Osteoarthritis (OA), Skin Disorder, Sleep Apnea/CPAP/BIPAP Additional Past Medical History / Comment(s): CHRONIC LYMPHOCYTIC LEUKEMIA, BACK AND HIP PAIN, FREQUENT URINATION/urgency, SOB w/exertion, hx gout, SPINAL STENOSIS, BILATERAL LEG CELLULITIS History of Any Multi-Drug Resistant Organisms: None Reported Past Surgical History: Joint Replacement Additional Past Surgical History / Comment(s): left hip replacement,. COLONOSCOPY Past Anesthesia/Blood Transfusion Reactions: No Reported Reaction Past Psychological History: Depression Smoking Status: Vaper Past Alcohol Use History: Occasional Additional Past Alcohol Use History / Comment(s): SMOKES e-cig daily, occasional cigars,. STARTED SMOKING AGE 16. quit cigarettes 2-3 yrs ago Past Drug Use History: Marijuana Additional Drug Use History / Comment(s): OCCASIONALLY SMOKES MARIJUANA - Past Family History Father Family Medical History: Coronary Artery Disease (CAD) Mother Family Medical History: No Reported History Medications and Allergies Home Medications Medication Instructions Recorded Confirmed Type ARIPiprazole [Abilify] 2.5 mg PO HS 08/03/15 07/13/20 History buPROPion HCL [Wellbutrin] 100 mg PO BID 08/03/15 07/13/20 History lisinopriL [Zestril] 20 mg PO BID 08/03/15 07/13/20 History Atorvastatin [Lipitor] 20 mg PO HS 03/11/18 07/13/20 History Gabapentin [Neurontin] 600 mg PO TID 03/11/18 07/13/20 History Latanoprost [Xalatan 0.005%] 1 drop BOTH EYES HS 03/11/18 07/13/20 History Lidocaine 5% Patch [Lidoderm 5% 1 patch TOPICAL DAILY PRN 03/11/18 07/13/20 History Patch] Potassium Chloride [K-Tab ER] 10 meq PO DAILY 03/11/18 07/13/20 History Terazosin [Hytrin] 6 mg PO HS 03/11/18 07/13/20 History Multivitamins, Thera [Multivitamin 1 tab PO DAILY #30 tablet 03/15/18 07/13/20 Rx (formulary)] INSULIN ASPART (NovoLOG) [NovoLOG 35 unit SQ AC-TID 08/05/18 07/13/20 History (formulary)] Insulin Glargine [Lantus] 42 unit SQ BID 08/05/18 07/13/20 History Furosemide [Lasix] 40 mg PO DAILY 04/04/19 07/13/20 History Spironolactone [Aldactone] 25 mg PO DAILY 04/04/19 07/13/20 History Aspirin EC [Ecotrin Low Dose] 81 mg PO DAILY 07/13/20 07/13/20 History Empagliflozin [Jardiance] 10 mg PO DAILY 07/13/20 07/13/20 History Metoprolol Succinate [Toprol XL] 25 mg PO DAILY 07/13/20 07/13/20 History Oxybutynin Chloride [Ditropan] 5 mg PO DAILY 07/13/20 07/13/20 History Allergies Allergy/AdvReac Type Severity Reaction Status Date / Time metformin AdvReac Unknown Abdominal Verified 07/13/20 08:31 Pain and Nausea metformin HCl AdvReac Unknown Abdominal Verified 07/13/20 08:31 [From Glucophage] Pain and Nausea Physical Exam Vitals: Vital Signs Temp Pulse Pulse Resp BP BP Pulse Ox 07/13/20 08:07 97.5 F L 94 18 162/65 100 07/13/20 06:50 98.2 F 92 16 92/54 97 07/13/20 05:49 88 18 103/47 98 07/13/20 04:35 99.1 F 95 18 102/46 96 Intake and Output 07/12/20 07/13/20 07/13/20 22:59 06:59 14:59 Other: Voiding Method Urinal Weight 140.614 kg 140.614 kg PHYSICAL EXAMINATION: GENERAL: The patient is alert and oriented x3, not in any acute distress. Well developed, well nourished. HEENT: Pupils are round and equally reacting to light. EOMI. No scleral icterus. No conjunctival pallor. Normocephalic, atraumatic. No pharyngeal erythema. No thyromegaly. CARDIOVASCULAR: S1 and S2 present. No murmurs, rubs, or gallops. PULMONARY: Chest is clear to auscultation, no wheezing or crackles. ABDOMEN: Soft, nontender, nondistended, normoactive bowel sounds. No palpable organomegaly. MUSCULOSKELETAL: No joint swelling or deformity. EXTREMITIES: No cyanosis, clubbing, or pedal edema. NEUROLOGICAL: Gross neurological examination did not reveal any focal deficits. SKIN: Bilateral lower extremity venous stasis dermatosis and some nonpitting pedal edema Results CBC & Chem 7: 07/13/20 05:29 07/13/20 05:27 Labs: Abnormal Lab Results - Last 24 Hours (Table) 07/13/20 07/13/20 07/13/20 Range/Units 05:17 05:17 05:27 WBC (3.8-10.6) k/uL RDW (11.5-15.5) % Lymphocytes # (Manual) (1.0-4.8) k/uL APTT 17.9 L (22.0-30.0) sec Sodium 133 L (137-145) mmol/L Potassium 5.7 H (3.5-5.1) mmol/L BUN 25 H (9-20) mg/dL Creatinine 1.46 H (0.66-1.25) mg/dL Glucose 258 H (74-99) mg/dL POC Glucose (mg/dL) (75-99) mg/dL Plasma Lactic Acid Hans 2.5 H* (0.7-2.0) mmol/L Total Bilirubin 1.7 H (0.2-1.3) mg/dL AST 213 H (17-59) U/L ALT 62 H (4-49) U/L Total Protein 6.2 L (6.3-8.2) g/dL Urine Protein (Negative) Urine Glucose (UA) (Negative) Urine Blood (Negative) Hyaline Casts (0-2) /lpf Urine Mucus (None) /hpf 07/13/20 07/13/20 07/13/20 Range/Units 05:29 06:15 06:29 WBC 72.6 H* (3.8-10.6) k/uL RDW 15.7 H (11.5-15.5) % Lymphocytes # (Manual) 67.52 H (1.0-4.8) k/uL APTT (22.0-30.0) sec Sodium (137-145) mmol/L Potassium (3.5-5.1) mmol/L BUN (9-20) mg/dL Creatinine (0.66-1.25) mg/dL Glucose (74-99) mg/dL POC Glucose (mg/dL) 218 H (75-99) mg/dL Plasma Lactic Acid Hans (0.7-2.0) mmol/L Total Bilirubin (0.2-1.3) mg/dL AST (17-59) U/L ALT (4-49) U/L Total Protein (6.3-8.2) g/dL Urine Protein 1+ H (Negative) Urine Glucose (UA) 4+ H (Negative) Urine Blood Large H (Negative) Hyaline Casts 8 H (0-2) /lpf Urine Mucus Occasional H (None) /hpf 07/13/20 07/13/20 Range/Units 08:13 11:27 WBC (3.8-10.6) k/uL RDW (11.5-15.5) % Lymphocytes # (Manual) (1.0-4.8) k/uL APTT (22.0-30.0) sec Sodium (137-145) mmol/L Potassium (3.5-5.1) mmol/L BUN (9-20) mg/dL Creatinine (0.66-1.25) mg/dL Glucose (74-99) mg/dL POC Glucose (mg/dL) 232 H (75-99) mg/dL Plasma Lactic Acid Hans 2.1 H* (0.7-2.0) mmol/L Total Bilirubin (0.2-1.3) mg/dL AST (17-59) U/L ALT (4-49) U/L Total Protein (6.3-8.2) g/dL Urine Protein (Negative) Urine Glucose (UA) (Negative) Urine Blood (Negative) Hyaline Casts (0-2) /lpf Urine Mucus (None) /hpf Assessment and Plan Plan: -Syncope: Secondary to antidepressant medications leading to acute renal failure prerenal azotemia along with the diuretics these will be held patient will be continued on IV fluids. Patient had a normal echocardiogram in the past will reorder an echocardiogram monitor in monitoring coordinator physical therapy occupational therapy evaluation as patient still takes quite a bit weak. -Acute renal failure: Secondary to above-mentioned reasons that his medications diuretics and prerenal azotemia -Hyperkalemia secondary to GIANNI inhibitor, Aldactone, renal failure. -Hypovolemic hyponatremia for today. With IV fluids -Elevated liver enzymes ultrasound of the liver and gallbladder will be obtained -Leukocytosis: Secondary to chronic lymphocytic leukemia -Atelectasis will order incentive spirometry no evidence of infection at this t kota -Type 2 diabetes mellitus: Patient was started on his home regimen titrate regimen depending on his blood sugars here next and-gastroesophageal reflux disease -Hypertension patient is actually presents on admission hold off antidepressant medications monitor the blood pressure he may need a low-dose of lisinopril. -Bilateral pedal edema secondary to chronic venous stasis patient does have veno us stasis tuberculosis patient will be given compression sock upon discharge it and use Lasix only on as-needed basis -Sleep apnea and uses CPAP machine at home -DVT prophylaxis with heparin subcutaneous.
[2020-07-13] MEDS: SODIUM CHLORIDE 0.9% 1,000 ML IV SCH ×2 (15:18→21:05)
[2020-07-13] MEDS: GABAPENTIN 300 MG CAP PO SCH ×2 (15:18→21:04)
[2020-07-13] MEDS: HEPARIN SODIUM,PORCINE 5,000 UNIT/ML 1 ML VIAL SQ SCH (15:18)
[2020-07-13 16:42] LABS: Glucose,Whole Blood 285 mg/dL (75-99)
[2020-07-13 20:53] LABS: Glucose,Whole Blood 204 mg/dL (75-99)
[2020-07-13] MEDS ORDERED: ATORVASTATIN 20 MG TAB PO SCH (21:00)
[2020-07-13] MEDS: DOXAZOSIN 2 MG TAB PO SCH (21:04)
[2020-07-13] MEDS: INSULIN DETEMIR (LEVEMIR) 100 UNIT/ML SYR SQ SCH (21:04)
[2020-07-13] MEDS: LATANOPROST 0.005% OPHTH DROPS 2.5 ML BTL BOTH EYES SCH (21:04)
[2020-07-13] MEDS: buPROPion 100 MG TAB PO SCH (21:04)
[2020-07-13] MEDS: ARIPiprazole 5 MG TAB PO SCH (21:04)
[2020-07-14] MEDS: HEPARIN SODIUM,PORCINE 5,000 UNIT/ML 1 ML VIAL SQ SCH ×4 (00:09→22:26)
[2020-07-14 06:48] LABS: Glucose,Whole Blood 183 mg/dL (75-99)
--- NOTE | 2020-07-14 08:00 | ECHOF ---
Referral Reason:Syncope MEASUREMENTS -------- HEIGHT: 177.8 cm WEIGHT: 140.6 kg BP: 162/65 RVIDd: 4.4 cm (< 3.3) IVSd: 1.6 cm (0.6 - 1.1) LVIDd: 3.7 cm (3.9 - 5.3) LVPWd: 1.8 cm (0.6 - 1.1) IVSs: 2.0 cm LVIDs: 2.6 cm LVPWs: 2.4 cm LAESV Index (A-L): 32.97 ml/m Ao Diam: 3.1 cm (2.0 - 3.7) AV Cusp: 2.1 cm (1.5 - 2.6) MV EXCURSION: 20.390 mm (> 18.000) MV EF SLOPE: 102 mm/s (70 - 150) EPSS: 0.8 cm MV E Melchor: 0.71 m/s MV DecT: 201 ms MV A Melchor: 1.16 m/s MV E/A Ratio: 0.62 FINDINGS -------- Sinus rhythm. This was a technically difficult study with suboptimal apical views. The left ventricular size is normal. There is moderate concentric left ventricular hypertrophy. O verall left ventricular systolic function is normal with, an EF between 55 - 60 %. The right ventricle is moderate to severely enlarged. LA is midly dilated 29-33ml/m2. The right atrium was not well visualized. Lumason used Interatrial and interventricular septum intact. The aortic valve is trileaflet and appears structurally normal. There is no evidence of aortic regu rgitation. There is no evidence of aortic stenosis. There is trace mitral regurgitation. Trace tricuspid regurgitation present. Unable to estimate RVSP due to inadequate TR jet spectral do ppler profile. There is no pulmonic regurgitation present. The aortic root size is normal. IVC Not well visulized. CONCLUSIONS -------- 1. The left ventricular size is normal. 2. There is moderate concentric left ventricular hypertrophy. 3. Overall left ventricular systolic function is normal with, an EF between 55 - 60 %. 4. The right ventricle is moderate to severely enlarged. 5. LA is midly dilated 29-33ml/m2. 6. There is trace mitral regurgitation. 7. Trace tricuspid regurgitation present. SEPARATING MACHINE OPERATOR: Almaz Barajas RDCS
[2020-07-14] MEDS: METOPROLOL SUCCINATE (ER) 25 MG TAB.ER.24H PO SCH (08:22)
[2020-07-14] MEDS: GABAPENTIN 300 MG CAP PO SCH ×3 (08:22→20:42)
[2020-07-14] MEDS: MULTIVITAMINS, THERA 1 EACH TAB PO SCH (08:22)
[2020-07-14] MEDS: ASPIRIN 81 MG PO SCH (08:22)
[2020-07-14] MEDS: INSULIN ASPART (NovoLOG) 100 UNIT/ML VIAL SQ SCH ×7 (08:23→20:41)
[2020-07-14] MEDS: buPROPion 100 MG TAB PO SCH ×2 (08:24→20:42)
[2020-07-14] MEDS: INSULIN DETEMIR (LEVEMIR) 100 UNIT/ML SYR SQ SCH ×2 (08:24→20:40)
[2020-07-14] MEDS: LIDOCAINE 5% PATCH TOPICAL PRN (08:29)
--- NOTE | 2020-07-14 08:32 | US ---
EXAMINATION TYPE: US liver DATE OF EXAM: 07/14/2020 COMPARISON: NONE CLINICAL HISTORY: elevated LFTs, bili, CLL. elevated liver enzymes EXAM MEASUREMENTS: Liver Length: 21.8 cm Gallbladder Wall: 0.3 cm Right Kidney: 11.2 x 5.3 x 6.2 cm Technical limitations due to large amount of overlying bowel and patient unable to rotate into LLD position Pancreas: Obscured by bowel gas Liver: enlarged, attenuating, unable to penetrate Gallbladder: no evidence of stones Evidence for sonographic Catherine's sign: no CBD: Obscured by overlying bowel gas Right Kidney: no evidence of hydronephrosis IMPRESSION: Hepatomegaly with probable underlying hepatic steatosis.
[2020-07-14] MEDS ORDERED: polyethylene glycoL 3350 17 GM POWD.PACK PO PRN (09:41)
[2020-07-14] MEDS: lisinopriL 10 MG TAB PO SCH (09:56)
[2020-07-14] MEDS: HYDROcodone/APAP 7.5-325MG 1 EACH TAB PO PRN ×3 (09:56→22:26)
[2020-07-14 10:00] LABS: African American GFR (CKD) 81.8 (60.0-200.0); Albumin 4.3 g/dL (3.80-4.90); Albumin/Globulin Ratio 2.39 (1.60-3.17); Anion Gap 10.1 mmol/L (4.00-12.00); Calcium 8.7 mg/dL (8.7-10.3); Carbon Dioxide 23.9 mmol/L (21.6-31.8); Globulin 1.8 g/dL (1.6-3.3); Non-African American GFR(CKD) 70.6 (60.0-200.0); Potassium 4.4 mmol/L (3.5-5.5); Total Bilirubin 2.2 mg/dL (0.3-1.2); Total Protein 6.1 g/dL (6.2-8.2)
[2020-07-14] MEDS: SODIUM CHLORIDE 0.9% 1,000 ML IV SCH (10:04)
[2020-07-14 11:41] LABS: Glucose,Whole Blood 263 mg/dL (75-99)
--- NOTE | 2020-07-14 13:00 | P.PN ---
Subjective Progress Note Date: 07/14/20 Principal diagnosis: near syncopy, dizziness In f/u today pt is doing better with adjustment to his meds, he is agreeable to rehabilitation. No nausea, acute changes in bowel habits, or abd pain Objective - Vital Signs Vital signs: Vital Signs Temp 97.9 F 07/14/20 07:36 Pulse 88 07/14/20 07:45 Resp 19 07/14/20 07:45 BP 163/76 07/14/20 07:36 Pulse Ox 99 07/14/20 07:36 Intake & Output 07/13/20 07/14/20 07/14/20 18:59 06:59 18:59 Output Total 950 1450 275 Balance -950 -1450 -275 Weight 140.614 kg Output: Urine 950 1450 275 Other: Voiding Method Urinal Urinal Urinal - Constitutional General appearance: Present: cooperative, morbidly obese, no acute distress - EENT Eyes: Present: anicteric sclerae, EOMI ENT: Present: hearing grossly normal - Respiratory Details: resp even and unlabored - Integumentary Integumentary Comment(s): BLE swelling, few shallow ulcerations and scabs - Neurologic Neurologic: Present: CNII-XII intact - Musculoskeletal Musculoskeletal: Present: generalized weakness - Psychiatric Psychiatric: Present: A&O x's 3, appropriate affect, intact judgment & insight - Labs CBC & Chem 7: 07/13/20 05:29 07/14/20 06:27 Labs: Abnormal Lab Results - Last 24 Hours (Table) 07/13/20 07/13/20 07/14/20 Range/Units 16:37 20:52 06:27 Glucose 185 H (70-110) mg/dL POC Glucose (mg/dL) 285 H 204 H (75-99) mg/dL Total Bilirubin 2.2 H (0.3-1.2) mg/dL AST 359 H (14-35) U/L ALT 133 H (10-49) U/L Total Protein 6.1 L (6.2-8.2) g/dL 07/14/20 07/14/20 Range/Units 06:45 11:39 Glucose (70-110) mg/dL POC Glucose (mg/dL) 183 H 263 H (75-99) mg/dL Total Bilirubin (0.3-1.2) mg/dL AST (14-35) U/L ALT (10-49) U/L Total Protein (6.2-8.2) g/dL Microbiology - Last 24 Hours (Table) 07/13/20 05:29 Blood Culture - Preliminary Blood No Growth after 24 hours - Imaging and Cardiology US liver report reviewed Assessment and Plan (1) Chronic lymphocytic leukemia Narrative/Plan: Office chart review shows that patient's white blood cell count runs in the 70- 80 range, absolute lymphocyte count runs in the 70-80 range as well. Patient's hemoglobin and platelet counts are within normal limits. Nothing acutely from his CLL standpoint. Current Visit: No Status: Chronic Priority: Medium Code(s): C91.90 - LYMPHOID LEUKEMIA, UNSPECIFIED NOT HAVING ACHIEVED REMISSION SNOMED Code(s): 13818277 Plan: US of the liver due to new onset elevation of LFTs, c/o of right upper quadrant pain in the recent past shows steatosis and hepatomegaly, no gallstones or other pathology reported. LFTs cont to elevate today. Pt did have syncopy and dehydration, possible LFTs increased because of recent poor perfusion. Possible GI consult if persistent or progressive
--- NOTE | 2020-07-14 15:50 | P.PN ---
Subjective 65-year-old male came in with complaints of generalized weakness and had syncope felt lightheaded and fell. Patient was still complaining of generalized weakness not feeling well. Patient doesn't have any fevers. Patient does have a leukocytosis secondary to his chronic lymphocytic leukemia. Denied any significant cough dysuria. Chest x-ray showed atelectasis. Patient is hypotensive on admission with a low blood pressure systolics in 90s. Patient does take lisinopril at home, along with Aldactone and Lasix. Patient to denied any history of congestive heart failure never had any CHF exacerbation because but does take Lasix for pedal edema. Patient is also found to have a hypokalemia secondary to lisinopril, acute renal failure, Aldactone. Patient is receiving IV fluids. Patient is found to have elevated lactic acid which impro santino now. EKG showed some Q waves and probable first-degree AV block beyond which is not significant. Hip x-ray knee x-ray did not reveal any fractures. Patient has mildly elevated liver enzymes ultrasound is being obtained because of that. 07/14/2020 Patient's serum creatinine improved but the liver enzymes continue to go up I'll obtain hepatitis panel will hold off on statin. Patient is still on Wilber which will be continued will repeat comprehensive metabolic profile and hepatitis panel will be ordered if patient liver enzymes continue to go to the middle consulted gastroenterology and we need to stop Wilber at the time. Patient is significantly weak will need placement at subacute rehabitation. Constitutional: Patient is still complaining of significant generalized weakness Cardio vascular: denied any chest pain, palpitations Gastrointestinal denied any nausea vomiting Pulmonary: Denied any shortness of breath cough Neurologic denied any new focal deficits All inpatient medications were reviewed and appropriate changes in these medications as dictated in the interval history and assessment and plan. Objective - Vital Signs Vital signs: Vital Signs Temp 97.6 F 07/14/20 14:00 Pulse 79 07/14/20 14:00 Resp 18 07/14/20 14:00 BP 155/76 07/14/20 14:00 Pulse Ox 96 07/14/20 14:00 Intake & Output 07/13/20 07/14/20 07/14/20 18:59 06:59 18:59 Intake Total 2400 Output Total 950 1450 1475 Balance -950 -1450 925 Weight 140.614 kg Intake: Oral 2400 Output: Urine 950 1450 1475 Other: Voiding Method Urinal Urinal Urinal - Exam PHYSICAL EXAMINATION: GENERAL: The patient is alert and oriented x3, not in any acute distress. Well developed, well nourished. HEENT: Pupils are round and equally reacting to light. EOMI. No scleral icterus. No conjunctival pallor. Normocephalic, atraumatic. No pharyngeal erythema. No thyromegaly. CARDIOVASCULAR: S1 and S2 present. No murmurs, rubs, or gallops. PULMONARY: Chest is clear to auscultation, no wheezing or crackles. ABDOMEN: Soft, nontender, nondistended, normoactive bowel sounds. No palpable organomegaly. MUSCULOSKELETAL: No joint swelling or deformity. EXTREMITIES: No cyanosis, clubbing, or pedal edema. NEUROLOGICAL: Gross neurological examination did not reveal any focal deficits. SKIN: Bilateral lower extremity venous stasis dermatosis and some nonpitting pedal edema - Labs CBC & Chem 7: 07/13/20 05:29 07/14/20 06:27 Labs: Abnormal Lab Results - Last 24 Hours (Table) 07/13/20 07/13/20 07/14/20 Range/Units 16:37 20:52 06:27 Glucose 185 H (70-110) mg/dL POC Glucose (mg/dL) 285 H 204 H (75-99) mg/dL Total Bilirubin 2.2 H (0.3-1.2) mg/dL AST 359 H (14-35) U/L ALT 133 H (10-49) U/L Total Protein 6.1 L (6.2-8.2) g/dL 07/14/20 07/14/20 Range/Units 06:45 11:39 Glucose (70-110) mg/dL POC Glucose (mg/dL) 183 H 263 H (75-99) mg/dL Total Bilirubin (0.3-1.2) mg/dL AST (14-35) U/L ALT (10-49) U/L Total Protein (6.2-8.2) g/dL Microbiology - Last 24 Hours (Table) 07/13/20 05:29 Blood Culture - Preliminary Blood No Growth after 24 hours Assessment and Plan Plan: -Syncope: Secondary to antidepressant medications leading to acute renal failure prerenal azotemia along with the diuretics these will be held .his renal failure improved and still feels tired. Echo showed left ventricular hypertrophy but normal ejection fraction severely enlarged right ventricle. Physical therapy and occupational therapy evaluated the patient in the recommending subacute rehabilitation . -Acute renal failure: Secondary to above-mentioned reasons that his medications diuretics and prerenal azotemia, improved with IV fluids -Hyperkalemia secondary to GIANNI inhibitor, Aldactone, renal failure. Are being held. Hyperkalemia resolved -Hypovolemic hyponatremia improved With IV fluids -Elevated liver enzymes ultrasound of the liver and gallbladder ultrasound showed nonalcoholic steatohepatitis. Patient liver enzymes continued above will also obtain a hepatitis panel hold off on statin. Repeat liver enzymes tomorrow again -Leukocytosis: Secondary to chronic lymphocytic leukemia -Atelectasis will order incentive spirometry no evidence of infection at this time -Type 2 diabetes mellitus: Patient blood sugars are bit elevated continue with the home regimen plus sliding scale. -gastroesophageal reflux disease -Hypertension patient's lisinopril is being held patient blood pressure started going up patient was started back on low-dose of lisinopril at 10 mg. -Bilateral pedal edema secondary to chronic venous stasis patient does have venous stasis tuberculosis patient will be given compression sock upon discharge it and use Lasix only on as-needed basis -Sleep apnea and uses CPAP machine at home -DVT prophylaxis with heparin subcutaneous.
[2020-07-14 16:54] LABS: Glucose,Whole Blood 145 mg/dL (75-99)
[2020-07-14 19:18] LABS: Hepatitis A Antibody IgM Non-Reactive (Non-Reactive); Hepatitis B Core IgM Non-Reactive (Non-Reactive); Hepatitis B Surface Antigen Non-Reactive (Non-Reactive); Hepatitis C IgG Antibody Non-Reactive (Non-Reactive)
[2020-07-14 20:30] LABS: Glucose,Whole Blood 209 mg/dL (75-99)
[2020-07-14] MEDS: DOXAZOSIN 2 MG TAB PO SCH (20:41)
[2020-07-14] MEDS: LATANOPROST 0.005% OPHTH DROPS 2.5 ML BTL BOTH EYES SCH (20:42)
[2020-07-14] MEDS: ARIPiprazole 5 MG TAB PO SCH (20:42)
[2020-07-15] MEDS: HYDROcodone/APAP 7.5-325MG 1 EACH TAB PO PRN ×2 (06:08→12:48)
[2020-07-15 07:10] LABS: Glucose,Whole Blood 207 mg/dL (75-99)
[2020-07-15] MEDS: METOPROLOL SUCCINATE (ER) 25 MG TAB.ER.24H PO SCH (07:18)
[2020-07-15] MEDS: lisinopriL 10 MG TAB PO SCH (07:18)
[2020-07-15] MEDS: HEPARIN SODIUM,PORCINE 5,000 UNIT/ML 1 ML VIAL SQ SCH (07:18)
[2020-07-15] MEDS: ASPIRIN 81 MG PO SCH (07:18)
[2020-07-15] MEDS: INSULIN DETEMIR (LEVEMIR) 100 UNIT/ML SYR SQ SCH (07:18)
[2020-07-15] MEDS: buPROPion 100 MG TAB PO SCH (07:18)
[2020-07-15] MEDS: INSULIN ASPART (NovoLOG) 100 UNIT/ML VIAL SQ SCH ×4 (07:18→12:44)
[2020-07-15] MEDS: GABAPENTIN 300 MG CAP PO SCH (07:18)
[2020-07-15] MEDS: MULTIVITAMINS, THERA 1 EACH TAB PO SCH (07:18)
[2020-07-15 11:08] VITALS: RESP 20; TEMP 97.6
[2020-07-15 11:38] LABS: Glucose,Whole Blood 190 mg/dL (75-99)
[2020-07-15 11:43] LABS: African American GFR (CKD) 104.2 (60.0-200.0); Anion Gap 5.2 mmol/L (4.00-12.00); BUN/Creat Ratio 21.11 Ratio (12.00-20.00); Calcium 8.5 mg/dL (8.7-10.3); Carbon Dioxide 25.8 mmol/L (21.6-31.8); Non-African American GFR(CKD) 89.9 (60.0-200.0); Potassium 4.5 mmol/L (3.5-5.5)
[2020-07-15 12:44] LABS: Albumin 4.1 g/dL (3.80-4.90); Total Bilirubin 1.1 mg/dL (0.3-1.2); Total Protein 5.7 g/dL (6.2-8.2)
[2020-07-15] MEDS: LIDOCAINE 5% PATCH TOPICAL PRN (14:31)
--- NOTE | 2020-07-15 14:35 | P.DS ---
Providers Date of admission: 07/13/20 06:35 Expected date of discharge: 07/15/20 Attending physician: Kal Heller MD Consults: 07/13/20 06:53 Consult Physician Routine Consulting Provider: Favio Carrillo Consult Reason/Comments: CLL patient. Increased leukocyte count Do you want consulting provider notified?: Yes Primary care physician: [facility] Hospital Course: Final diagnosis -Syncope: Secondary to antihypertensive medications leading to acute renal failure prerenal azotemia along with the diuretics -Acute renal failure: Secondary to above-mentioned reasons that his medications diuretics and prerenal azotemia -Hyperkalemia secondary to GIANNI inhibitor, Aldactone, renal failure. Hyperkalemia resolved -Hypovolemic hyponatremia, improved -Elevated liver enzymes ultrasound of the liver and gallbladder ultrasound showed nonalcoholic steatohepatitis. -Leukocytosis: Secondary to chronic lymphocytic leukemia -Atelectasis with no evidence of infection at this time -Type 2 diabetes mellitus, with hyperglycemia -gastroesophageal reflux disease -Hypertension -Bilateral pedal edema secondary to chronic venous stasis -Sleep apnea and uses CPAP machine at home -DVT prophylaxis Discharge disposition Patient is being discharged in a stable condition with guarded prognosis to [facility] for continued PT/OT therapy. Patient will follow-up with the [facility] in the outpatient setting upon discharge. Total time taken is greater than 35 minutes. History of present illness This is a 65-year-old male who was recently admitted with generalized weakness syncope and fall and was being closely monitored. Left hip x-ray and right knee x-ray were negative for any fractures. Patient was found to have significant leukocytosis secondary to his chronic lymphocytic leukemia and was seen and evaluated by hematology. Chest x-ray showed some atelectasis and patient was given an incentive spirometer and instructed to use at least 10 times every hour while awake. On admission patient was slightly hypotensive and adjustments to medications have been made. Will continue to hold Lasix in the outpatient setting until follow-up. Patient denies any history of heart failure and states he has been taking Lasix for lower extremity swelling. Patient's liver enzymes were elevated and an ultrasound was obtained showing hepatomegaly with probable underlying hepatic steatosis. Hepatitis panel was negative. Liver functions continue to be elevated today although trending down. Prescriptions provided for repeat labs in a few days to monitor LFTs. Patient also underwent a 2-D echo showing LV systolic function is normal with an EF between 55 and 60%. Patient continues to have weakness and generalized left hip and lower back pain and obtained an L-spine x-ray which shows no acute fractures or dislocations. Currently no reports of chest pain, shortness of breath, or palpitations. Patient is afebrile. No reports of nausea or vomiting and patient is tolerating diet. Patient will be discharged to [facility] today. On exam vital signs are stable. Temp is 97.6F, pulse is 82, respirations are 20, blood pressure is 148/72, oxygen saturation is 96% on room air. Cardio S1, S2 are muffled. Respiratory system shows diminished breath sounds at the bases with no wheezing or rhonchi noted. Abdomen is soft, obese, and nontender. Nervous system shows diffuse weakness. Please refer to medication reconciliation sheet for a list of medications. Patient Condition at Discharge: Fair Plan - Discharge Summary New Discharge Prescriptions: New polyethylene glycoL 3350 [Miralax] 17 gm PO DAILY PRN powd.pack PRN Reason: Constipation Gabapentin [Neurontin] 300 mg PO TID #9 cap INSULIN ASPART (NovoLOG) [NovoLOG (formulary)] 0 unit SQ ACHS vial lisinopriL [Zestril] 10 mg PO DAILY tab Continue ARIPiprazole [Abilify] 2.5 mg PO HS buPROPion HCL [Wellbutrin] 100 mg PO BID Terazosin [Hytrin] 6 mg PO HS Lidocaine 5% Patch [Lidoderm 5% Patch] 1 patch TOPICAL DAILY PRN PRN Reason: Pain Latanoprost [Xalatan 0.005%] 1 drop BOTH EYES HS Multivitamins, Thera [Multivitamin (formulary)] 1 tab PO DAILY #30 tablet INSULIN ASPART (NovoLOG) [NovoLOG (formulary)] 35 unit SQ AC-TID Insulin Glargine [Lantus] 42 unit SQ BID Aspirin EC [Ecotrin Low Dose] 81 mg PO DAILY Empagliflozin [Jardiance] 10 mg PO DAILY Metoprolol Succinate [Toprol XL] 25 mg PO DAILY Oxybutynin Chloride [Ditropan] 5 mg PO DAILY Discontinued lisinopriL [Zestril] 20 mg PO BID Potassium Chloride [K-Tab ER] 10 meq PO DAILY Gabapentin [Neurontin] 600 mg PO TID Atorvastatin [Lipitor] 20 mg PO HS Spironolactone [Aldactone] 25 mg PO DAILY Furosemide [Lasix] 40 mg PO DAILY Discharge Medication List ARIPiprazole [Abilify] 2.5 mg PO HS 08/03/15 [History] buPROPion HCL [Wellbutrin] 100 mg PO BID 08/03/15 [History] Latanoprost [Xalatan 0.005%] 1 drop BOTH EYES HS 03/11/18 [History] Lidocaine 5% Patch [Lidoderm 5% Patch] 1 patch TOPICAL DAILY PRN 03/11/18 [History] Terazosin [Hytrin] 6 mg PO HS 03/11/18 [History] Multivitamins, Thera [Multivitamin (formulary)] 1 tab PO DAILY #30 tablet 03/15/18 [Rx] INSULIN ASPART (NovoLOG) [NovoLOG (formulary)] 35 unit SQ AC-TID 08/05/18 [History] Insulin Glargine [Lantus] 42 unit SQ BID 08/05/18 [History] Aspirin EC [Ecotrin Low Dose] 81 mg PO DAILY 07/13/20 [History] Empagliflozin [Jardiance] 10 mg PO DAILY 07/13/20 [History] Metoprolol Succinate [Toprol XL] 25 mg PO DAILY 07/13/20 [History] Oxybutynin Chloride [Ditropan] 5 mg PO DAILY 07/13/20 [History] Gabapentin [Neurontin] 300 mg PO TID #9 cap 07/15/20 [Rx] INSULIN ASPART (NovoLOG) [NovoLOG (formulary)] 0 unit SQ ACHS vial 07/15/20 [Rx] lisinopriL [Zestril] 10 mg PO DAILY tab 07/15/20 [Rx] polyethylene glycoL 3350 [Miralax] 17 gm PO DAILY PRN powd.pack 07/15/20 [Rx] Follow up Appointment(s)/Referral(s): [facility],Clinic [Primary Care Provider] - 1-2 days Ambulatory/Diagnostic Orders: ALT [LAB.AMB] Location: None Selected AST [LAB.AMB] Location: None Selected Comprehensive Metabolic Panel [LAB.AMB] Time Frame: 3 Days, Location: None Selected Activity/Diet/Wound Care/Special Instructions: Patient is going to [facility] Activity as tolerated Continue current diet Continue with CPAP at night Follow up with hematology in the outpatient setting Continue to monitor blood sugar before meals at bedtime and treat accordingly with sliding scale along with pre-meal and long-acting Continue to hold Lasix and statin until primary care follow-up Discharge Disposition: TRANSFER TO SNF/ECF
--- NOTE | 2020-07-15 14:38 | XR ---
EXAMINATION TYPE: XR lumbar spine 2 or 3V DATE OF EXAM: 07/15/2020 CLINICAL HISTORY: Increasing back pain. TECHNIQUE: Frontal and lateral images of the lumbar spine are obtained. COMPARISON: MRI lumbar spine 2016 FINDINGS: There are 5 lumbar type vertebral bodies redemonstrated. The lumbar spine shows satisfact ory alignment without evidence of acute fracture or dislocation. Large bridging osteophytes noted thr oughout the thoracolumbar spine. Vertebral body heights and disk space heights are within normal limi ts. Multilevel spinous process hypertrophy. Facet arthropathy mid to lower lumbar spine. Diffuse scle rosis in the lumbar spine favored product of advanced spurring. Possible narrowing of the bilateral s acroiliac joints. The overlying soft tissue appears unremarkable. IMPRESSION: As above. Correlate for DISH or possibly ankylosing spondylitis.
--- NOTE | 2020-07-15 14:41 | P.PN ---
Subjective Progress Note Date: 07/15/20 Principal diagnosis: near syncopy, dizziness In f/u today pt cont to do better, plans for rehab. No acute physical c/o Objective - Vital Signs Vital signs: Vital Signs Temp 97.6 F 07/15/20 07:00 Pulse 82 07/15/20 07:00 Resp 20 07/15/20 07:00 BP 148/72 07/15/20 07:00 Pulse Ox 96 07/15/20 07:00 Intake & Output 07/14/20 07/15/20 07/15/20 18:59 06:59 18:59 Intake Total 2400 3900 600 Output Total 1475 Balance 925 3900 600 Intake: Intake, IV Titration 1200 Amount Sodium Chloride 0.9% 1, 1200 000 ml @ 100 mls/hr IV . Q10H BRITTNEY Rx#:[id number] Oral 2400 2700 600 Output: Urine 1475 Other: Voiding Method Urinal Urinal - Constitutional General appearance: Present: cooperative, morbidly obese - EENT Eyes: Present: anicteric sclerae, EOMI - Integumentary Integumentary Comment(s): BLE swelling and multiple small skin wounds 2/2 chronic conditions - Musculoskeletal Musculoskeletal: Present: generalized weakness - Psychiatric Psychiatric: Present: A&O x's 3, appropriate affect, intact judgment & insight - Labs CBC & Chem 7: 07/13/20 05:29 07/15/20 07:13 Labs: Abnormal Lab Results - Last 24 Hours (Table) 07/14/20 07/14/20 07/15/20 Range/Units 16:52 20:29 07:06 Sodium (135-145) mmol/L BUN/Creatinine Ratio (12.00-20.00) Ratio Glucose (70-110) mg/dL POC Glucose (mg/dL) 145 H 209 H 207 H (75-99) mg/dL Calcium (8.7-10.3) mg/dL AST (14-35) U/L ALT (10-49) U/L Total Protein (6.2-8.2) g/dL 07/15/20 07/15/20 07/15/20 Range/Units 07:13 07:13 11:34 Sodium 132 L (135-145) mmol/L BUN/Creatinine Ratio 21.11 H (12.00-20.00) Ratio Glucose 207 H (70-110) mg/dL POC Glucose (mg/dL) 190 H (75-99) mg/dL Calcium 8.5 L (8.7-10.3) mg/dL AST 227 H (14-35) U/L ALT 119 H (10-49) U/L Total Protein 5.7 L (6.2-8.2) g/dL Microbiology - Last 24 Hours (Table) 07/13/20 05:29 Blood Culture - Preliminary Blood No Growth after 48 hours Assessment and Plan (1) Chronic lymphocytic leukemia Narrative/Plan: Patient's hemoglobin and platelet counts are within normal limits, his WBC and ALC are stable for him. Nothing acutely from his CLL standpoint. Current Visit: No Status: Chronic Priority: Medium Code(s): C91.90 - LYM PHOID LEUKEMIA, UNSPECIFIED NOT HAVING ACHIEVED REMISSION SNOMED Code(s): 88547852 Plan: US of the liver due to new onset elevation of LFTs, c/o of right upper quadrant pain in the recent past shows steatosis and hepatomegaly, no gallstones or other pathology reported. No labs this AM. Discussed case with GI, consult placed to evaluate.
[2020-07-15 15:44] VITALS: BP 153/70; PULSE 83
== END 2020-07-15 16:18 ==
LOC: EC 04:33 → SUPCPDRO 04:33 → 4SSUR 06:35
PROVIDERS: ADMIT Internal Medicine; ATTEND Internal Medicine
DX: R55 Syncope and collapse (principal); T43.205A Adverse effect of unspecified antidepressants, initial encounter; R42 Dizziness and giddiness; I95.9 Hypotension, unspecified; N17.9 Acute kidney failure, unspecified; T46.4X5A Adverse effect of angiotensin-converting-enzyme inhibitors, initial encounter; R79.89 Other specified abnormal findings of blood chemistry; E87.5 Hyperkalemia; E87.1 Hypo-osmolality and hyponatremia; E86.1 Hypovolemia; E87.6 Hypokalemia; E87.2 Acidosis; E78.5 Hyperlipidemia, unspecified; E86.0 Dehydration; K75.81 Nonalcoholic steatohepatitis (NASH); C91.10 Chronic lymphocytic leukemia of B-cell type not having achieved remission; J98.11 Atelectasis; E11.65 Type 2 diabetes mellitus with hyperglycemia; K21.9 Gastro-esophageal reflux disease without esophagitis; I10 Essential (primary) hypertension; I87.8 Other specified disorders of veins; G47.30 Sleep apnea, unspecified; M19.90 Unspecified osteoarthritis, unspecified site; R35.0 Frequency of micturition; R39.15 Urgency of urination; R06.02 Shortness of breath; M10.9 Gout, unspecified; M48.00 Spinal stenosis, site unspecified; F32.9 Major depressive disorder, single episode, unspecified; F17.290 Nicotine dependence, other tobacco product, uncomplicated; I44.0 Atrioventricular block, first degree; I25.2 Old myocardial infarction; E11.40 Type 2 diabetes mellitus with diabetic neuropathy, unspecified; E66.01 Morbid (severe) obesity due to excess calories; Z79.899 Other long term (current) drug therapy; Z79.1 Long term (current) use of non-steroidal anti-inflammatories (NSAID); Z79.4 Long term (current) use of insulin; Z79.82 Long term (current) use of aspirin; Z88.8 Allergy status to other drugs, medicaments and biological substances; Z87.2 Personal history of diseases of the skin and subcutaneous tissue; Z99.89 Dependence on other enabling machines and devices; Z98.890 Other specified postprocedural states; Z96.642 Presence of left artificial hip joint; Z91.81 History of falling; Z68.41 Body mass index [BMI] 40.0-44.9, adult; Z82.49 Family history of ischemic heart disease and other diseases of the circulatory system
CPT/HCPCS: 96361 ×3; 96372 ×3; 96365; 99285; 36415; 93005; 93306; 97116; 97162; 97166; 80053 ×2; 80048; 80074; 82040; 82247; 83605; 84075; 84155; 84450; 84460; 84484; 85025; 85610; 85730; 81001; 87040; 72100; 73502; 73560; 71045; 76705; G0378 ×3; J1644 ×3; J0696; Q9950

== ENCOUNTER 2021-11-16 08:20 | Day surgery (SDC) | payer MEDICARE, OTHER ==
[2021-10-17 16:15] VITALS: BMI 44.4
[~2021-11-16 08:20] MED LIST changes: -ALPRAZolam 0.25 MG TAB PO PRN; -ALPRAZolam 0.5 MG TAB PO PRN; -ASPIRIN 325 MG TAB PO STA; -ATORVASTATIN 80 MG TAB PO STA; +LACTATED RINGERS 1,000 ML IV SCH; +LIDOCAINE 1% (10MG/ML) FOR IV START INTRADERMA PRN; -NITROGLYCERIN SL TABS 0.4 MG TAB SUBLINGUAL PRN; -SODIUM CHLORIDE 0.9% 1,000 ML in EMPTY BAG 1 BAG IV ONE
[2021-11-16 09:04] VITALS: RESP 16; TEMP 97.4
[2021-11-16 09:08] LABS: Glucose,Whole Blood 210 mg/dL (75-99)
[2021-11-16] MEDS ORDERED: KETAMINE 10 MG/ML 20 ML VIAL ONE (09:34)
[2021-11-16] MEDS ORDERED: PROPOFOL 10 MG/ML 20 ML VIAL IV ONE (09:34)
--- NOTE | 2021-11-16 10:03 | P.PCN ---
Date of Procedure: 11/16/21 Procedure(s) Performed: BRIEF HISTORY: Patient is a 66-year-old pleasant white male scheduled for an elective colonoscopy as a part of evaluation of prior history of colon polyps. Last colonoscopy was done 5 years ago. PROCEDURE PERFORMED: Colonoscopy. PREOPERATIVE DIAGNOSIS: History of colon polyps. IV sedation per Anesthesia. PROCEDURE: After informed consent was obtained, the patient, was brought into the endoscopy unit. IV sedation was administered by Anesthesia under continuous monitoring. Digital rectal examination was normal. Initially the Olympus CF-160 flexible video colonoscope was then inserted in the rectum, gradually advanced into the cecum without any difficulty. Careful examination was performed as the scope was gradually being withdrawn. Ileocecal valve and the appendiceal orifice were visualized and appeared normal. Prep was fair.. Mucosa of the cecum, ascending colon, transverse colon, descending colon, sigmoid colon, and rectum appeared normal. At her sigmoid diverticulosis seen. Retroflexion was performed in the rectum and no lesions were seen. The patient tolerated the procedure well. IMPRESSION: Normal-appearing colon from rectum to cecum no evidence of colorectal neoplasia . Scattered sigmoid diverticulosis. RECOMMENDATIONS: Findings of this examination were discussed with the patient his family.. He was advised to have a repeat surveillance colonoscopy in 5 years from now because of the prior history of colon polyps.
[2021-11-16 10:20] VITALS: BP 155/83; PULSE 92
== END 2021-11-16 10:39 | disposition home or self-care (01) ==
LOC: ORWHC2ENDO 08:20
PROVIDERS: ATTEND Internal Medicine Gastroenterology
DX: Z12.11 Encounter for screening for malignant neoplasm of colon (principal); K57.30 Diverticulosis of large intestine without perforation or abscess without bleeding; Z86.010 Personal history of colon polyps; I10 Essential (primary) hypertension; G47.33 Obstructive sleep apnea (adult) (pediatric); C91.10 Chronic lymphocytic leukemia of B-cell type not having achieved remission; M19.90 Unspecified osteoarthritis, unspecified site; K21.9 Gastro-esophageal reflux disease without esophagitis; Z79.899 Other long term (current) drug therapy; Z79.82 Long term (current) use of aspirin; Z79.01 Long term (current) use of anticoagulants; Z79.84 Long term (current) use of oral hypoglycemic drugs; Z88.8 Allergy status to other drugs, medicaments and biological substances
CPT/HCPCS: J2704; G0121; 45378

== ENCOUNTER 2024-11-07 13:49 | Inpatient (IN) | payer OTHER, MEDICARE ==
[2024-11-07] MEDS: ONDANSETRON 4 MG/2 ML VIAL IVP STA (15:07)
[2024-11-07] MEDS: MORPHINE SULFATE 4 MG/ML SYRINGE IV STA (15:08)
[2024-11-07] MEDS: ACETAMINOPHEN TAB 325 MG TAB PO STA (15:09)
--- NOTE | 2024-11-07 15:10 | ED ---
General Adult HPI - General Chief complaint: Fall Stated complaint: fall Time Seen by Provider: 11/07/24 14:08 Source: patient, EMS Mode of arrival: EMS Limitations: no limitations - History of Present Illness Initial comments: Patient is a 69-year-old gentleman history of CLL, atrial fibrillation on Eliquis presenting from home for generalized weakness and ground-level fall. Patient was transitioning over to a chair and became too weak to sit all the way into the chair and fell onto his buttocks. He did not hit his head or neck. Denies any additional injuries. He was unable to get up. Does typically ambulate with a walker and feels too weak to do that at this point. He denies any fevers, chills, shortness of breath or chest pain, abdominal pain, nausea, vomiting, melena or hematochezia, headaches or dizziness. No new focal numbness or weakness. No sudden vision changes. Has noted worsening bilateral lower extremity erythema over the last 2 days. - Related Data Home Medications Medication Instructions Recorded Confirmed ARIPiprazole [Abilify] 2.5 mg PO DAILY 08/03/15 11/07/24 INSULIN ASPART (NovoLOG) [NovoLOG 35 unit SQ TID-W/MEALS 08/05/18 11/07/24 (formulary)] Insulin Glargine (Lantus) [Lantus 48 unit SQ BID 08/05/18 11/07/24 Vial] Finasteride [Proscar] 5 mg PO DAILY 10/17/21 11/07/24 Gabapentin [Neurontin] 600 mg PO TID 10/17/21 11/07/24 Atorvastatin [Lipitor] 20 mg PO HS 11/07/24 11/07/24 Escitalopram [Lexapro] 20 mg PO DAILY 11/07/24 11/07/24 Loperamide [Imodium] 2 mg PO Q4H PRN 11/07/24 11/07/24 Multivitamins, Thera [Multivitamin 1 tab PO DAILY 11/07/24 11/07/24 (formulary)] SITagliptin [Zituvio] 100 mg PO DAILY 11/07/24 11/07/24 Tamsulosin HCl [Flomax] 0.4 mg PO DAILY 11/07/24 11/07/24 Vitamin E (Dl,Tocopheryl Acet) 90 mg PO DAILY 11/07/24 11/07/24 [Vitamin E (100 Iu = 45MG)] Allergies Allergy/AdvReac Type Severity Reaction Status Date / Time metformin AdvReac Unknown Abdominal Verified 11/07/24 17:31 Pain and Nausea metformin HCl AdvReac Unknown Abdominal Verified 11/07/24 17:31 [From Glucophage] Pain and Nausea Review of Systems ROS Statement: Those systems with pertinent positive or pertinent negative responses have been documented in the HPI. ROS Other: All systems not noted in ROS Statement are negative. Past Medical History Past Medical History: Cancer, Diabetes Mellitus, GERD/Reflux, Hypertension, Osteoarthritis (OA), Prostate Disorder, Skin Disorder, Sleep Apnea/CPAP/BIPAP Additional Past Medical History / Comment(s): CHRONIC LYMPHOCYTIC LEUKEMIA-dx. >10 yrs. ago-currently has elevated WBC he thinks related to his leukemia, BACK AND HIP PAIN, FREQUENT URINATION/urgency, SOB w/exertion, hx gout, SPINAL STENOSIS, BILATERAL LEG CELLULITIS-not weeping currently, uses CPAP, hx. colon polyps History of Any Multi-Drug Resistant Organisms: None Reported Past Surgical History: Joint Replacement Additional Past Surgical History / Comment(s): left hip replacement,. COLONOSCOPY Past Anesthesia/Blood Transfusion Reactions: No Reported Reaction Past Psychological History: Depression Smoking Status: Vaper Past Alcohol Use History: None Reported Past Drug Use History: None Reported - Past Family History Father Family Medical History: Coronary Artery Disease (CAD) Mother Family Medical History: No Reported History General Exam - General Exam Comments Initial Comments: PE: CONSTITUTIONAL: No apparent distress, well appearing SKIN: Warm, dry, no jaundice, hives or petechiae circumferential erythema of the bilateral distal lower extremities extending up to just inferior to the knee, beefy erythema with well circumscribed rash underneath pannus EYES: Pupils are equally round, extraocular movements intact without nystagmus, clear conjunctiva, non-icteric sclera HENT: Normocephalic, atraumatic, moist mucus membranes, oropharynx clear without exudates NECK: , Full range of motion, normal appearance, no midline spinal tenderness to palpation PULMONARY: Clear to auscultation without wheezes, rhonchi, or rales, normal excursion, no accessory muscle use and no stridor CARDIOVASCULAR: Regular rate, rhythm, normal S1 and S2. No appreciated murmurs, rubs or gallops. Strong radial pulses with intact distal perfusion. No lower extremity edema GASTROINTESTINAL: Soft, active bowel sounds throughout, non-tender, non- distended, no palpable masses, no rebound or guarding. No hepatosplenomegaly MUSCULOSKELETAL: [Extremities have no gross deformity, no midline spinal tenderness to palpation NEUROLOGIC:_a/o x 3, GCS 15, normal mentation and speech. Moves all 4 e xtremities spontaneously, diffuse weakness without focal neurologic deficits PSYCHIATRIC:_normal mood and affect, thought process is clear and linear Limitations: no limitations Course Vital Signs 11/07/24 11/07/24 11/07/24 13:54 15:04 19:36 Temperature 97.8 F Pulse Rate 96 80 77 Respiratory 18 18 18 Rate Blood Pressure 131/72 137/49 114/53 O2 Sat by Pulse 98 95 96 Oximetry 11/07/24 11/08/24 11/08/24 22:06 04:00 06:55 Temperature 97.7 F 97.4 F L 97.6 F Pulse Rate 77 96 73 Respiratory 18 18 16 Rate Blood Pressure 120/56 116/52 123/51 O2 Sat by Pulse 97 96 97 Oximetry 11/08/24 11/08/24 11/08/24 08:50 10:00 15:23 Temperature 98.4 F 98 F 98.3 F Pulse Rate 70 74 61 Respiratory 16 18 18 Rate Blood Pressure 117/61 120/76 91/56 O2 Sat by Pulse 98 98 99 Oximetry 11/08/24 16:01 Temperature Pulse Rate 93 Respiratory 18 Rate Blood Pressure 108/64 O2 Sat by Pulse 97 Oximetry EKG Findings - EKG Comments: EKG Findings:: Atrial fibrillation with RVR, rate 113 bpm QT/QTc 360/431 ms, normal axis, no ST elevations or depressions Medical Decision Making - Medical Decision Making Was pt. sent in by a medical professional or institution (, PA, SURG TECH, urgent care, hospital, or fpc...) When possible be specific @ -No Did you speak to anyone other than the patient for history (EMS, parent, family, police, friend...)? What history was obtained from this source @ -No Did you review nursing and triage notes (agree or disagree)? Why? @ -I reviewed nursing and triage notes Were old charts reviewed (outside hosp., previous admission, EMS record, old EKG, old radiological studies, urgent care reports/EKG's, fpc records)? Report findings @ -Medical records reviewed Differential Diagnosis (chest pain, altered mental status, abdominal pain women, abdominal pain men, vaginal bleeding, weakness, fever, dyspnea, syncope, headache, dizziness, GI bleed, back pain, seizure, CVA, palpatations, mental health, musculoskeletal)? @Differential Weakness: Hypoglycemia, shock, sepsis, hyponatremia, anemia, infection, ACS, electrolyte derrangement, this is not meant to be an all-inclusive list. EKG interpreted by me (3pts min.). @ -As above X-rays interpreted by me (1pt min.). @ -Personally chest x-ray see no evidence of cardiomegaly consolidations or pleural effusions CT interpreted by me (1pt min.). @ -None done U/S interpreted by me (1pt. min.). @ -None done What testing was considered but not performed or refused? (CT, X-rays, U/S, labs)? Why? @ -None What meds were considered but not given or refused? Why? @ -None Did you discuss the management of the patient with other professionals (professionals i.e. , PA, SURG TECH, lab, RT, psych nurse, social security specialist, soft metals hand engraver, teacher, ecological technical officer, gearcase assembler)? Give summary @ -No Was smoking cessation discussed for >3mins.? @ -No Was critical care preformed (if so, how long)? @ -No Were there social determinants of health that impacted care today? How? (Homelessness, low income, unemployed, alcoholism, drug addiction, transportation, low edu. Level, literacy, decrease access to med. care, custodial, rehab)? @ -No Was there de-escalation of care discussed even if they declined (Discuss DNR or withdrawal of care, Hospice)? @ -No What co-morbidities impacted this encounter? (DM, HTN, Smoking, COPD, CAD, Cancer, CVA, ARF, Chemo, Hep., AIDS, mental health diagnosis, sleep apnea, morbid obesity)? @ -CLL, chronic debility, atrial fibrillation on eliquis Was patient admitted / discharged? Hospital course, mention meds given and route, prescriptions, significant lab abnormalities, going to OR and other pertinent info. @ Admission- patient is a 69-year-old male with history of CLL, H relation on Eliquis presented today for generalized weakness and a ground-level fall without head injury. On my assessment patient is resting comfortably in NAD, erythema of the distal bilateral LE, no signs external injury. Workup will remain broad at this time, patient does appear to have signs bilateral LE cellulitis in addition to dysuria, so will start on cefepime. Pt states is too weak to return home and ambulate at his baseline level of activity, plan for admission. Pt noted to have WBC ~90,000, as noted above, does have CLL, however may be 2/2 superimposed infection, suspect 2/2 cellulitis vs bed sores. Of note, evaluation of these was limited as pt was unable to turn onto his side for prolonged period due to chronic back pain, though did attempt to reposition patient to more closely evaluate. Noted to have elevated troponin0.060, though no significant ST elevations or depressions on EKG, no chest pain, will continue to trend. Updated pt to findings and plan for admission. Case discussed with Dr. Márquez, kindly accepts pt for admission. Undiagnosed new problem with uncertain prognosis? @ -No Drug Therapy requiring intensive monitoring for toxicity (Heparin, Nitro, Insulin, Cardizem)? @ -No Were any procedures done? @ -No Diagnosis/symptom? @Generalized weakness, cellulitis, fall Acute, or Chronic, or Acute on Chronic? @ acute Uncomplicated (without systemic symptoms) or Complicated (systemic symptoms)? @complicated Side effects of treatment? @ -No Exacerbation, Progression, or Severe Exacerbation? @ -No - Lab Data Result diagrams: 11/08/24 06:39 11/08/24 06:39 Lab Results 11/07/24 11/07/24 11/07/24 Range/Units 14:56 14:56 14:56 WBC 91.58 H* (4.50-10.00) 10*3/uL RBC 4.30 L (4.40-5.60) 10*6/uL Hgb 13.0 (13.0-17.0) g/dL Hct 39.2 L (39.6-50.0) % MCV 91.2 (80.0-97.0) fL MCH 30.2 (27.0-32.0) pg MCHC 33.2 (32.0-37.0) g/dL Plt Count 240 (140-440) 10*3/uL MPV 9.5 (9.5-12.2) fL Immature Gran % (Auto) 0.3 % Neutrophils % (Manual) 6 % Lymphocytes % (Manual) 93 % Monocytes % (Manual) 1 % Immature Gran # 0.28 H (0.00-0.04) 10*3/uL Neutrophils # (Manual) 5.49 (1.3-7.7) k/uL Lymphocytes # (Manual) 85.17 H (1.0-4.8) k/uL Monocytes # (Manual) 0.92 (0-1.0) k/uL Nucleated RBCs 0 (0-0) /100 WBC Differential Comment Manual Slide Review Performed RBC Morphology Normal PT 12.6 H (10.0-12.5) sec INR 1.2 H (<1.2) APTT 21.9 L (22.0-30.0) sec Sodium 133 L (137-145) mmol/L Potassium 4.0 (3.5-5.1) mmol/L Chloride 97 L (98-107) mmol/L Carbon Dioxide 24 (22-30) mmol/L Anion Gap 12 mmol/L BUN 16 (9-20) mg/dL Creatinine 0.64 L (0.66-1.25) mg/dL Est GFR (CKD-EPI)AfAm >90 (>60 ml/min/1.73 sqM) Est GFR (CKD-EPI)NonAf >90 (>60 ml/min/1.73 sqM) Glucose 145 H (74-99) mg/dL Calcium 8.8 (8.4-10.2) mg/dL Magnesium 1.9 (1.6-2.3) mg/dL Total Bilirubin 2.9 H (0.2-1.3) mg/dL AST 65 H (17-59) U/L ALT 32 (4-49) U/L Alkaline Phosphatase 84 (38-126) U/L Troponin I (0.000-0.034) ng/mL Total Protein 5.8 L (6.3-8.2) g/dL Albumin 3.6 (3.5-5.0) g/dL Urine Color Urine Appearance (Clear) Urine pH (5.0-8.0) Ur Specific [place] (1.001-1.035) Urine Protein (Negative) Urine Glucose (UA) (Negative) Urine Ketones (Negative) Urine Blood (Negative) Urine Nitrite (Negative) Urine Bilirubin (Negative) Urine Urobilinogen (<2.0) mg/dL Ur Leukocyte Esterase (Negative) Urine RBC (0-5) /hpf Urine WBC (0-5) /hpf Urine Bacteria (None) /hpf Urine Mucus (None) /hpf Influenza Type A (PCR) (Not Detectd) Influenza Type B (PCR) (Not Detectd) RSV (PCR) (Not Detectd) SARS-CoV-2 (PCR) (Not Detectd) 11/07/24 11/07/24 11/07/24 Range/Units 14:56 14:56 17:00 WBC (4.50-10.00) 10*3/uL RBC (4.40-5.60) 10*6/uL Hgb (13.0-17.0) g/dL Hct (39.6-50.0) % MCV (80.0-97.0) fL MCH (27.0-32.0) pg MCHC (32.0-37.0) g/dL Plt Count (140-440) 10*3/uL MPV (9.5-12.2) fL Immature Gran % (Auto) % Neutrophils % (Manual) % Lymphocytes % (Manual) % Monocytes % (Manual) % Immature Gran # (0.00-0.04) 10*3/uL Neutrophils # (Manual) (1.3-7.7) k/uL Lymphocytes # (Manual) (1.0-4.8) k/uL Monocytes # (Manual) (0-1.0) k/uL Nucleated RBCs (0-0) /100 WBC Differential Comment Manual Slide Review RBC Morphology PT (10.0-12.5) sec INR (<1.2) APTT (22.0-30.0) sec Sodium (137-145) mmol/L Potassium (3.5-5.1) mmol/L Chloride (98-107) mmol/L Carbon Dioxide (22-30) mmol/L Anion Gap mmol/L BUN (9-20) mg/dL Creatinine (0.66-1.25) mg/dL Est GFR (CKD-EPI)AfAm (>60 ml/min/1.73 sqM) Est GFR (CKD-EPI)NonAf (>60 ml/min/1.73 sqM) Glucose (74-99) mg/dL Calcium (8.4-10.2) mg/dL Magnesium (1.6-2.3) mg/dL Total Bilirubin (0.2-1.3) mg/dL AST (17-59) U/L ALT (4-49) U/L Alkaline Phosphatase (38-126) U/L Troponin I 0.060 H* (0.000-0.034) ng/mL Total Protein (6.3-8.2) g/dL Albumin (3.5-5.0) g/dL Urine Color Yellow Urine Appearance Cloudy (Clear) Urine pH 5.5 (5.0-8.0) Ur Specific [place] 1.022 (1.001-1.035) Urine Protein 1+ H (Negative) Urine Glucose (UA) 2+ H (Negative) Urine Ketones 1+ H (Negative) Urine Blood Trace H (Negative) Urine Nitrite Negative (Negative) Urine Bilirubin Negative (Negative) Urine Urobilinogen 2.0 (<2.0) mg/dL Ur Leukocyte Esterase Negative (Negative) Urine RBC 1 (0-5) /hpf Urine WBC 2 (0-5) /hpf Urine Bacteria Rare H (None) /hpf Urine Mucus Few H (None) /hpf Influenza Type A (PCR) Not Detected (Not Detectd) Influenza Type B (PCR) Not Detected (Not Detectd) RSV (PCR) Not Detected (Not Detectd) SARS-CoV-2 (PCR) Not Detected (Not Detectd) Disposition Clinical Impression: Fall, Cellulitis, Generalized weakness Disposition: ADMITTED IP TO THIS HOSP Condition: Stable
[2024-11-07 15:12] LABS: HCT 39.2 % (39.6-50.0); MCH 30.2 pg (27.0-32.0); MCHC 33.2 g/dL (32.0-37.0); MCV 91.2 fL (80.0-97.0); Mean Platelet Volume 9.5 fL (9.5-12.2); Platelet Count 240 10*3/uL (140-440)
[2024-11-07 15:23] LABS: WBC 91.58 10*3/uL (4.50-10.00)
[2024-11-07 15:28] LABS: African American GFR (CKD) >90 (>60 ml/min/1.73 sqM); Albumin 3.6 g/dL (3.5-5.0); Anion Gap 12 mmol/L; Blood Urea Nitrogen 16 mg/dL (9-20); Calcium 8.8 mg/dL (8.4-10.2); Carbon Dioxide 24 mmol/L (22-30); Chloride 97 mmol/L (98-107); Glucose 145 mg/dL (74-99); Magnesium 1.9 mg/dL (1.6-2.3); Non-African American GFR(CKD) >90 (>60 ml/min/1.73 sqM); Sodium 133 mmol/L (137-145); Total Bilirubin 2.9 mg/dL (0.2-1.3); Total Protein 5.8 g/dL (6.3-8.2)
[2024-11-07 15:29] LABS: INR 1.2 (<1.2); Prothrombin Time 12.6 sec (10.0-12.5)
[2024-11-07 15:33] LABS: AST 65 U/L (17-59); Alkaline Phosphatase 84 U/L (38-126)
[2024-11-07 15:47] LABS: Partial Thromboplastin Time 21.9 sec (22.0-30.0)
--- NOTE | 2024-11-07 15:48 | XR ---
EXAMINATION TYPE: XR chest 2V DATE OF EXAM: 11/07/2024 3:40 PM COMPARISON: Chest radiographs from 07/13/2020 CLINICAL INDICATION: Male, 69 years old with history of Weakness; TECHNIQUE: XR chest 2V Frontal and lateral views of the chest. FINDINGS: Lungs/Pleura: There is no evidence of pleural effusion, focal consolidation, or pneumothorax. Pulmonary vascularity: Unremarkable. Heart/mediastinum: Cardiomediastinal silhouette is unremarkable. Musculoskeletal: No acute osseous pathology. IMPRESSION: No acute cardiopulmonary disease/process. [facility], , 11/07/2024 3:45 PM
[2024-11-07 15:49] LABS: ALT 32 U/L (4-49); Influenza A Not Detected (Not Detectd); Influenza B Not Detected (Not Detectd); RSV Not Detected (Not Detectd)
[2024-11-07] MEDS: CEFEPIME 2 GM in SODIUM CHLORIDE 0.9% 100 ML IVPB STA (16:18)
[2024-11-07] MEDS: ZINC OXIDE PASTE (Z-GUARD) 1 APPLIC TOPICAL ONE (16:21)
[2024-11-07 16:38] LABS: Lymphocytes # (M) 85.17 k/uL (1.0-4.8); Monocytes # (M) 0.92 k/uL (0-1.0); Neutrophils # (M) 5.49 k/uL (1.3-7.7); Neutrophils % (M) 6 %; Nucleated Red Blood Cells 0 /100 WBC (0-0); Total Cells Counted 100
[2024-11-07 16:42] LABS: RBC Morphology Normal
[2024-11-07 17:07] LABS: Appearance,Urine Cloudy (Clear); Bacteria,Urine Rare /hpf; Bilirubin,Urine Negative (Negative); Blood,Urine Trace (Negative); Color,Urine Yellow; Glucose,Urine (UA) 2+ (Negative); Ketones,Urine 1+ (Negative); Leukocyte Esterase,Urine Negative (Negative); Mucus,Urine Few /hpf; Nitrite,Urine Negative (Negative); PH, Urine 5.5 (5.0-8.0); Protein,Urine 1+ (Negative); RBC,Urine 1 /hpf (0-5); Specific Gravity,Urine 1.022 (1.001-1.035); WBC,Urine 2 /hpf (0-5)
[2024-11-07] MEDS ORDERED: NALOXONE 0.4 MG/ML 1 ML VIAL IV PRN (17:18)
[2024-11-07] MEDS ORDERED: ONDANSETRON 4 MG/2 ML VIAL IVP PRN (17:18)
[2024-11-07] MEDS: SODIUM CHLORIDE 0.9% 1,000 ML IV SCH (17:39)
[2024-11-07] MEDS ORDERED: DEXTROSE 50% SYRINGE 50 ML IVP PRN ×2 (18:13)
--- NOTE | 2024-11-07 18:24 | P.HPIM ---
History of Present Illness H&P Date: 11/07/24 History of present illness; 69-year-old man with PMH of CLL (follows with Dr. Vasquez), diabetes mellitus, A fib maintained on eliquis, ABIMBOLA maintained on CPAP and venous insufficiency. He presented to the emergency department after suffering a fall earlier this morning. He notes that he has been feeling weaker for the past little while now, however had not acted on it. This morning he was with an aide at his home and he got up to go to the bathroom, he bumped into the aide and then fell to the floor. He states that he fell to his knees and then slowly fell to the ground, stating that he did not lose consciousness or hit his head. He also notes that he has been having worsening shortness of breath when lying flat, or reclined in his chair. He describes feeling as though he is unable to catch his breath when he leans back. He does note that with his history of CLL he follows with Dr. Vasquez, however they have just been monitoring his blood counts and he has never been treated for it at any time. He is WBCs are generally close to 70,000 on average. Additionally, he has chronic lower leg wounds, which he feels have been improving, however are quite prominent, he does not follow with wound care regularly. He denies any fever, chills, chest pain, palpitations, any changes in appetite, weight loss, change in bowel movement or urinary habits. Labratory review: -WBCs 91.58, hemoglobin 13.0, hematocrit 39.2, platelet 240; sodium 133, potassium 4.0, chloride 97, bicarb 24, BUN 16, creatinine 0.64, calcium 8.8, magnesium 1.9, total bilirubin 2.9, AST 65, ALT 32, alkaline phosphatase 84; troponin 0.060 -UA: 1+ protein, 2+ glucose, 1+ ketones, trace blood -Respiratory viral panel all negative Imaging: -Chest x-ray done in the ER independently read and interpreted showed no acute cardiopulmonary process -EKG done in the ER showed heart rate of , no ST segment elevation or depression seen, no T-wave inversions seen. Vitals: -Blood pressure 137/49, heart rate 80, respiratory rate 18, SpO2 95% on room air Patient admitted to internal medicine service REVIEW OF SYSTEMS: Pertinent positives and negatives noted in HPI. The rest of the 14-point review of systems is negative. Physical Exam: General: nontoxic, no distress, appears at stated age Derm: warm, dry, intact Head: atraumatic, normocephalic, symmetric Eyes: EOMI, anicteric sclera Mouth: no lip lesion, mucus membranes moist Cardiovascular: S1 S2 reg, no murmur, rubs, or gallops Lungs: CTA bilateral, no rales, no accessory muscle use Abdominal: soft, non-tender to palpataion, no appreciable organomegaly Extremities: no gross muscle atrophy, no edema, no contractures; bilateral lower extremity wounds, mostly healed over at this time, no active weeping noted Neuro: Alert, Oriented, CNII-XII grossly intact, gait normal Psych: well appearing, appropriate affect Assessment and plan 69-year-old man with PMH of CLL, diabetes mellitus, GERD, hypertension, osteoarthritis. #Debility #NSTEMI, likely type II -Trend troponins: 0.060 -Echocardiogram ordered, currently pending -Given Aspirin 325 once in ED; Continue with Aspirin 81 mg daily -Continue Lipitor 40 mg nightly -TSH, Vitamin B12 ordered, currently pending -PT and OT consulted -Cardiac monitoring -Fall precaution #CLL, currently stable -Follows with Dr. Vasquez -Is not currently undergoing treatment at this time -Will continue to monitor CBC -Cultures pending #A Fib, maintained on eliquis -Continue with Eliquis and Metoprolol -Cardiac monitoring -Fall precautions #Diabetes mellitus -Hold oral medications -Accu-Cheks -Continue sliding scale ACHS -Monitor for hypoglycemia -Hemoglobin A1c ordered, currently pending #ABIMBOLA, maintained on CPAP every night -CPAP ventilatory support ordered for every night #Chronic lower leg wounds, secondary to venous insufficiency and buttocks wounds -Wound care consulted Chronic conditions: #BPH #Anxiety/depression -Continue home medications GI prophylaxis: DVT prophylaxis: Maintained on Eliquis 5 mg twice daily The patient is admitted as observation with an anticipated less than than 2 midnight stay for evaluation of weakness and debility CODE STATUS: Full code Discussed with: Patient Anticipated discharge place: Pending clinical course Dictation was produced using [employer] dictation software. please excuse any grammatical, word or spelling errors. Mauricio Mon MD PGY-1 IM I have seen and evaluated the patient today. Discussed with the resident and agree with the residents finding and plan as documented in the resident's note. Changes highlighted in blue font. Past Medical History Past Medical History: Cancer, Diabetes Mellitus, GERD/Reflux, Hypertension, Osteoarthritis (OA), Prostate Disorder, Skin Disorder, Sleep Apnea/CPAP/BIPAP Additional Past Medical History / Comment(s): CHRONIC LYMPHOCYTIC LEUKEMIA-dx. >10 yrs. ago-currently has elevated WBC he thinks related to his leukemia, BACK AND HIP PAIN, FREQUENT URINATION/urgency, SOB w/exertion, hx gout, SPINAL STENOSIS, BILATERAL LEG CELLULITIS-not weeping currently, uses CPAP, hx. colon polyps History of Any Multi-Drug Resistant Organisms: None Reported Past Surgical History: Joint Replacement Additional Past Surgical History / Comment(s): left hip replacement,. COLONOSCOPY Past Anesthesia/Blood Transfusion Reactions: No Reported Reaction Past Psychological History: Depression Smoking Status: Vaper Past Alcohol Use History: None Reported Past Drug Use History: None Reported - Past Family History Father Family Medical History: Coronary Artery Disease (CAD) Mother Family Medical History: No Reported History Medications and Allergies Home Medications Medication Instructions Recorded Confirmed Type ARIPiprazole [Abilify] 2.5 mg PO DAILY 08/03/15 11/07/24 History INSULIN ASPART (NovoLOG) [NovoLOG 35 unit SQ TID-W/MEALS 08/05/18 11/07/24 History (formulary)] Insulin Glargine (Lantus) [Lantus 48 unit SQ BID 08/05/18 11/07/24 History Vial] Finasteride [Proscar] 5 mg PO DAILY 10/17/21 11/07/24 History Gabapentin [Neurontin] 600 mg PO TID 10/17/21 11/07/24 History Atorvastatin [Lipitor] 20 mg PO HS 11/07/24 11/07/24 History Escitalopram [Lexapro] 20 mg PO DAILY 11/07/24 11/07/24 History Loperamide [Imodium] 2 mg PO Q4H PRN 11/07/24 11/07/24 History Multivitamins, Thera [Multivitamin 1 tab PO DAILY 11/07/24 11/07/24 History (formulary)] SITagliptin [Zituvio] 100 mg PO DAILY 11/07/24 11/07/24 History Tamsulosin HCl [Flomax] 0.4 mg PO DAILY 11/07/24 11/07/24 History Vitamin E (Dl,Tocopheryl Acet) 90 mg PO DAILY 11/07/24 11/07/24 History [Vitamin E (100 Iu = 45MG)] Allergies Allergy/AdvReac Type Severity Reaction Status Date / Time metformin AdvReac Unknown Abdominal Verified 11/07/24 17:31 Pain and Nausea metformin HCl AdvReac Unknown Abdominal Verified 11/07/24 17:31 [From Glucophage] Pain and Nausea Physical Exam Vitals: Vital Signs Temp Pulse Resp BP Pulse Ox 11/07/24 15:04 80 18 137/49 95 11/07/24 13:54 97.8 F 96 18 131/72 98 Intake and Output 11/07/24 11/07/24 11/07/24 06:59 14:59 22:59 Other: Weight 126.099 kg Results CBC & Chem 7: 11/07/24 14:56 11/07/24 14:56 Labs: Abnormal Lab Results - Last 24 Hours (Table) 11/07/24 11/07/24 11/07/24 Range/Units 14:56 14:56 14:56 WBC 91.58 H* (4.50-10.00) 10*3/uL RBC 4.30 L (4.40-5.60) 10*6/uL Hct 39.2 L (39.6-50.0) % Immature Gran # 0.28 H (0.00-0.04) 10*3/uL Lymphocytes # (Manual) 85.17 H (1.0-4.8) k/uL PT 12.6 H (10.0-12.5) sec INR 1.2 H (<1.2) APTT 21.9 L (22.0-30.0) sec Sodium 133 L (137-145) mmol/L Chloride 97 L (98-107) mmol/L Creatinine 0.64 L (0.66-1.25) mg/dL Glucose 145 H (74-99) mg/dL Total Bilirubin 2.9 H (0.2-1.3) mg/dL AST 65 H (17-59) U/L Troponin I (0.000-0.034) ng/mL Total Protein 5.8 L (6.3-8.2) g/dL Urine Protein (Negative) Urine Glucose (UA) (Negative) Urine Ketones (Negative) Urine Blood (Negative) Urine Bacteria (None) /hpf Urine Mucus (None) /hpf 11/07/24 11/07/24 Range/Units 14:56 17:00 WBC (4.50-10.00) 10*3/uL RBC (4.40-5.60) 10*6/uL Hct (39.6-50.0) % Immature Gran # (0.00-0.04) 10*3/uL Lymphocytes # (Manual) (1.0-4.8) k/uL PT (10.0-12.5) sec INR (<1.2) APTT (22.0-30.0) sec Sodium (137-145) mmol/L Chloride (98-107) mmol/L Creatinine (0.66-1.25) mg/dL Glucose (74-99) mg/dL Total Bilirubin (0.2-1.3) mg/dL AST (17-59) U/L Troponin I 0.060 H* (0.000-0.034) ng/mL Total Protein (6.3-8.2) g/dL Urine Protein 1+ H (Negative) Urine Glucose (UA) 2+ H (Negative) Urine Ketones 1+ H (Negative) Urine Blood Trace H (Negative) Urine Bacteria Rare H (None) /hpf Urine Mucus Few H (None) /hpf
[2024-11-07] MEDS: BACITRACIN OINT 1 EACH PACKET TOPICAL ONE (19:30)
[2024-11-07] MEDS: ASPIRIN 325 MG TAB PO STA (19:30)
[2024-11-07] MEDS ORDERED: ATORVASTATIN 20 MG TAB PO SCH (21:00)
[2024-11-07 22:06] LABS: Glucose,Whole Blood 249 mg/dL (70-110)
[2024-11-07] MEDS: INSULIN LISPRO (HumaLOG) 100 UNIT/ML 10 mL VL SQ SCH (22:09)
[2024-11-07] MEDS: GABAPENTIN 300 MG CAP PO SCH (22:10)
[2024-11-07] MEDS: APIXABAN 5 MG TAB PO SCH (22:10)
[2024-11-07] MEDS: METOPROLOL TARTRATE 25 MG TAB PO SCH (22:10)
[2024-11-07] MEDS: ATORVASTATIN 40 MG TAB PO SCH (22:10)
[2024-11-07] MEDS: INSULIN GLARGINE (LANTUS) 100 UNIT/ML SYR SQ SCH (22:12)
[2024-11-08] MEDS: traMADol 50 MG TAB PO PRN (02:54)
[2024-11-08 06:47] LABS: Glucose,Whole Blood 206 mg/dL (70-110)
[2024-11-08] MEDS: HYDROmorphone 1 MG/ML 1 ML SYRINGE IVP PRN (07:02)
[2024-11-08 07:37] LABS: Glucose,Whole Blood 202 mg/dL (70-110)
[2024-11-08 07:40] LABS: Basophils # (A) 0.05 10*3/uL (0.00-0.10); Basophils % (A) 0.1 %; Eosinophils # (A) 0.13 10*3/uL (0.04-0.35); Eosinophils % (A) 0.2 %; HGB 12.3 g/dL (13.0-17.0); Lymphocytes % (A) 91.2 %; MCH 29.4 pg (27.0-32.0); MCHC 31.5 g/dL (32.0-37.0); MCV 93.1 fL (80.0-97.0); Mean Platelet Volume 9.2 fL (9.5-12.2); Monocytes # (A) 0.26 10*3/uL (0.20-1.00); Monocytes % (A) 0.4 %; Neutrophils # (A) 5.74 10*3/uL (1.80-7.70); Platelet Count 192 10*3/uL (140-440); RBC 4.19 10*6/uL (4.40-5.60); RDW 15.3 % (11.5-14.5)
[2024-11-08 08:19] LABS: African American GFR (CKD) >90 (>60 ml/min/1.73 sqM); Anion Gap 8 mmol/L; Blood Urea Nitrogen 15 mg/dL (9-20); Calcium 8.6 mg/dL (8.4-10.2); Carbon Dioxide 29 mmol/L (22-30); Chloride 95 mmol/L (98-107); Glucose 211 mg/dL (74-99); Non-African American GFR(CKD) >90 (>60 ml/min/1.73 sqM); Potassium 3.9 mmol/L (3.5-5.1); Sodium 132 mmol/L (137-145)
[2024-11-08 08:31] LABS: Neutrophils % (M) 9 %; Nucleated Red Blood Cells 0 /100 WBC (0-0); Total Cells Counted 100
[2024-11-08 08:35] LABS: Lymphocytes # (A) 66.48 10*3/uL (0.90-5.00)
[2024-11-08] MEDS: ARIPiprazole 5 MG TAB PO SCH (08:42)
[2024-11-08] MEDS: ESCITALOPRAM 20 MG TAB PO SCH (08:43)
[2024-11-08] MEDS: FINASTERIDE 5 MG TAB PO SCH (08:43)
[2024-11-08] MEDS: MULTIVITAMINS, THERA 1 EACH TAB PO SCH (08:43)
[2024-11-08] MEDS: ASPIRIN 81 MG PO SCH (08:44)
[2024-11-08] MEDS: TAMSULOSIN 0.4 MG CAP.ER.24H PO SCH (08:44)
--- NOTE | 2024-11-08 11:30 | P.PN ---
Subjective Progress Note Date: 11/08/24 History of present illness; 69-year-old man with PMH of CLL (follows with Dr. Vasquez), diabetes mellitus, A fib maintained on eliquis, ABIMBOLA maintained on CPAP and venous insufficiency. He presented to the emergency department after suffering a fall earlier this morning. He notes that he has been feeling weaker for the past little while now, however had not acted on it. This morning he was with an aide at his home and he got up to go to the bathroom, he bumped into the aide and then fell to the floor. He states that he fell to his knees and then slowly fell to the ground, stating that he did not lose consciousness or hit his head. He also notes that he has been having worsening shortness of breath when lying flat, or reclined in his chair. He describes feeling as though he is unable to catch his breath when he leans back. He does note that with his history of CLL he follows with Dr. Vasquez, however they have just been monitoring his blood counts and he has never been treated for it at any time. He is WBCs are generally close to 70,000 on average. Additionally, he has chronic lower leg wounds, which he feels have been improving, however are quite prominent, he does not follow with wound care regularly. He denies any fever, chills, chest pain, palpitations, any changes in appetite, weight loss, change in bowel movement or urinary habits. 11/08 - He is seen and examined at bedside this morning, remaining in the ED. no acute events overnight, no acute complaints this morning. REVIEW OF SYSTEMS: Pertinent positives and negatives noted in HPI. Physical Exam: General: nontoxic, no distress, appears at stated age Derm: warm, dry, intact Head: atraumatic, normocephalic, symmetric Eyes: EOMI, anicteric sclera Mouth: no lip lesion, mucus membranes moist Cardiovascular: S1 S2 reg, no murmur, rubs, or gallops Lungs: CTA bilateral, no rales, no accessory muscle use Abdominal: soft, non-tender to palpataion, no appreciable organomegaly Extremities: no gross muscle atrophy, no edema, no contractures; bilateral lower extremity wounds, mostly healed over at this time, no active weeping noted Neuro: Alert, Oriented, CNII-XII grossly intact, gait normal Psych: well appearing, appropriate affect Data Received Today: Labs: WBC 72.87, hemoglobin 12.3, hematocrit 39.0, platelet 192; sodium 132, potassium 3.9, BUN 15, creatinine 0.60, calcium 8.6, TSH 1.10 Imagining: No new imaging today Assessment and plan 69-year-old man with PMH of CLL (follows with Dr. Vasquez), diabetes mellitus, A fib maintained on eliquis, ABIMBOLA maintained on CPAP and venous insufficiency. He presented to the emergency department after suffering a fall earlier this morning. He notes that he has been feeling weaker for the past little while now, however had not acted on it. #Debility #NSTEMI, likely type II -Trend troponins: 0.060 -> 0.075 -> 0.060 -Echocardiogram ordered, currently pending -Continue with Aspirin 81 mg daily -Continue Lipitor 40 mg nightly -TSH 1.10 -Vitamin B12 ordered, currently pending -PT and OT consulted -Cardiac monitoring -Fall precaution #Hyponatremia, likely euvolemic -Hold IV fluids -Urine osmolality, urine sodium and serum osmolality ordered, currently pending -Continue to monitor sodium closely #CLL, currently stable -Follows with Dr. Vasquez -Is not currently undergoing treatment at this time -Will continue to monitor CBC -Cultures pending #A Fib, maintained on eliquis -Continue with Eliquis and Metoprolol -Cardiac monitoring -Fall precautions #Diabetes mellitus -Hold oral medications -Accu-Cheks -Continue sliding scale ACHS -3 unit Humalog AC 3 times daily -Continue home Lantus 48 units twice daily -Monitor for hypoglycemia -Hemoglobin A1c ordered, currently pending #ABIMBOLA, maintained on CPAP every night -CPAP ventilatory support ordered for every night #Chronic lower leg wounds, secondary to venous insufficiency and buttocks wounds -Wound care consulted Chronic conditions: #BPH #Anxiety/depression -Continue home medications DVT ppx: Code status: Full code F: NS 75 cc/h E: Replete as needed N: Heart healthy diet A: Limited ambulation at baseline Anticipated discharge place: Pending clinical course Anticipated discharge time: Pending clinical course Dictation was produced using [employer] dictation software. please excuse any grammatical, word or spelling errors. Mauricio Mon MD PGY-1 IM I have seen and evaluated the patient today. Discussed with the resident and agree with the residents finding and plan as documented in the resident's note. Changes highlighted in blue font. Objective - Vital Signs Vital signs: Vital Signs Temp 97.6 F 11/08/24 06:55 Pulse 73 11/08/24 06:55 Resp 16 11/08/24 06:55 BP 123/51 11/08/24 06:55 Pulse Ox 97 11/08/24 06:55 FiO2 Intake & Output 11/07/24 11/08/24 11/08/24 18:59 06:59 18:59 Weight 126.099 kg - Labs CBC & Chem 7: 11/08/24 06:39 11/08/24 06:39 Labs: Abnormal Lab Results - Last 24 Hours (Table) 11/07/24 11/07/24 11/07/24 Range/Units 14:56 14:56 14:56 WBC 91.58 H* (4.50-10.00) 10*3/uL RBC 4.30 L (4.40-5.60) 10*6/uL Hct 39.2 L (39.6-50.0) % Immature Gran # 0.28 H (0.00-0.04) 10*3/uL Lymphocytes # (Manual) 85.17 H (1.0-4.8) k/uL PT 12.6 H (10.0-12.5) sec INR 1.2 H (<1.2) APTT 21.9 L (22.0-30.0) sec Sodium 133 L (137-145) mmol/L Chloride 97 L (98-107) mmol/L Creatinine 0.64 L (0.66-1.25) mg/dL Glucose 145 H (74-99) mg/dL POC Glucose (mg/dL) (70-110) mg/dL Hemoglobin A1c (<=6.0) % Total Bilirubin 2.9 H (0.2-1.3) mg/dL AST 65 H (17-59) U/L Troponin I (0.000-0.034) ng/mL Total Protein 5.8 L (6.3-8.2) g/dL Urine Protein (Negative) Urine Glucose (UA) (Negative) Urine Ketones (Negative) Urine Blood (Negative) Urine Bacteria (None) /hpf Urine Mucus (None) /hpf 11/07/24 11/07/24 11/07/24 Range/Units 14:56 17:00 19:19 WBC (4.50-10.00) 10*3/uL RBC (4.40-5.60) 10*6/uL Hct (39.6-50.0) % Immature Gran # (0.00-0.04) 10*3/uL Lymphocytes # (Manual) (1.0-4.8) k/uL PT (10.0-12.5) sec INR (<1.2) APTT (22.0-30.0) sec Sodium (137-145) mmol/L Chloride (98-107) mmol/L Creatinine (0.66-1.25) mg/dL Glucose (74-99) mg/dL POC Glucose (mg/dL) (70-110) mg/dL Hemoglobin A1c (<=6.0) % Total Bilirubin (0.2-1.3) mg/dL AST (17-59) U/L Troponin I 0.060 H* 0.075 H* (0.000-0.034) ng/mL Total Protein (6.3-8.2) g/dL Urine Protein 1+ H (Negative) Urine Glucose (UA) 2+ H (Negative) Urine Ketones 1+ H (Negative) Urine Blood Trace H (Negative) Urine Bacteria Rare H (None) /hpf Urine Mucus Few H (None) /hpf 11/07/24 11/07/24 11/08/24 Range/Units 19:19 22:03 06:44 WBC (4.50-10.00) 10*3/uL RBC (4.40-5.60) 10*6/uL Hct (39.6-50.0) % Immature Gran # (0.00-0.04) 10*3/uL Lymphocytes # (Manual) (1.0-4.8) k/uL PT (10.0-12.5) sec INR (<1.2) APTT (22.0-30.0) sec Sodium (137-145) mmol/L Chloride (98-107) mmol/L Creatinine (0.66-1.25) mg/dL Glucose (74-99) mg/dL POC Glucose (mg/dL) 249 H 206 H (70-110) mg/dL Hemoglobin A1c 10.0 H (<=6.0) % Total Bilirubin (0.2-1.3) mg/dL AST (17-59) U/L Troponin I (0.000-0.034) ng/mL Total Protein (6.3-8.2) g/dL Urine Protein (Negative) Urine Glucose (UA) (Negative) Urine Ketones (Negative) Urine Blood (Negative) Urine Bacteria (None) /hpf Urine Mucus (None) /hpf
[2024-11-08 11:39] LABS: Glucose,Whole Blood 232 mg/dL (70-110)
[2024-11-08 12:26] LABS: Glucose,Whole Blood 217 mg/dL (70-110)
[2024-11-08] MEDS: INSULIN LISPRO (HumaLOG) 100 UNIT/ML 10 mL VL SQ SCH (12:30)
[2024-11-08 21:36] LABS: Glucose,Whole Blood 126 mg/dL (70-110)
[2024-11-09 03:37] LABS: HCT 38.4 % (39.6-50.0); HGB 12.3 g/dL (13.0-17.0); MCH 29.9 pg (27.0-32.0); MCV 93.2 fL (80.0-97.0); Mean Platelet Volume 9.6 fL (9.5-12.2); Platelet Count 209 10*3/uL (140-440); RBC 4.12 10*6/uL (4.40-5.60); RDW 14.8 % (11.5-14.5)
[2024-11-09 03:55] LABS: African American GFR (CKD) >90 (>60 ml/min/1.73 sqM); Anion Gap 6 mmol/L; Blood Urea Nitrogen 11 mg/dL (9-20); Calcium 8.9 mg/dL (8.4-10.2); Carbon Dioxide 33 mmol/L (22-30); Chloride 94 mmol/L (98-107); Glucose 123 mg/dL (74-99); Non-African American GFR(CKD) >90 (>60 ml/min/1.73 sqM); Potassium 4.3 mmol/L (3.5-5.1); Sodium 133 mmol/L (137-145)
[2024-11-09 04:23] LABS: WBC 63.69 10*3/uL (4.50-10.00)
[2024-11-09 06:32] LABS: Lymphocytes # (M) 58.59 k/uL (1.0-4.8); Neutrophils % (M) 8 %
[2024-11-09 06:33] LABS: Nucleated Red Blood Cells 0 /100 WBC (0-0); Total Cells Counted 100
[2024-11-09 06:37] LABS: Anisocytosis (M) Present
[2024-11-09 06:43] LABS: Glucose,Whole Blood 145 mg/dL (70-110)
[2024-11-09] MEDS: HYDROmorphone 2 MG/ML 1 ML SYRINGE IVP PRN (08:28)
--- NOTE | 2024-11-09 09:58 | P.PN ---
Subjective Progress Note Date: 11/09/24 Subjective: Patient seen and examined at bedside. No acute events overnight. Continues to have persistent weakness. Pertinent positives and negatives as discussed above, a complete review of systems was performed and all other systems are negative. Vitals Signs Reviewed. General: Nontoxic, no distress, appears at stated age, obese, disheveled Derm: Warm, dry, bilateral lower extremities wrapped in dressing, clean, dry, intact Head: Atraumatic, normocephalic, symmetric Eyes: EOMI, no lid lag, anicteric sclera Mouth: No lip lesion, mucus membranes moist Cardiovascular: S1S2 reg, no murmur Lungs: CTA bilateral, no rhonchi, no rales, no accessory muscle use Abdominal: Soft, nontender to palpation, no guarding, no appreciable organomegaly Ext: No gross muscle atrophy, no edema, no contractures Neuro: CN II-XI grossly intact, no focal neuro deficits Psych: Alert, oriented, appropriate affect Data Reviewed Today: Pertinent Labs: WBC 63.69, hemoglobin 12.3, platelet 209, sodium 133, bicarb 33, creatinine 0.58, blood sugars range between 123-145, magnesium 2 Imaging: No new imaging Assessment and Plan: Active: Debility Generalized weakness NSTEMI, type II - B12, TSH within normal limits - PT OT evaluation - Patient will likely need subacute rehab - Continue aspirin 81 mg daily, atorvastatin 40 mg nightly Severe leukocytosis CLL - Stable - Cultures negative growth to date Insulin-dependent diabetes - A1c 10 - Continue home Lantus 48 units twice daily - Lispro 5 units AC 3 times daily, sliding scale insulin, monitor for hypoglycemia Hyponatremia, likely euvolemic - Currently stable Persistent atrial fibrillation, currently rate controlled - On Eliquis 5 mg twice daily, metoprolol 25 twice daily Bilateral lower extremity venous insufficiency Venous stasis dermatitis - Wound care consulted Chronic: Neuropathy BPH Depression/anxiety DVT ppx: Eliquis Code status: Full code Anticipated discharge place: Likely subacute rehab Anticipated discharge time: Pending clinical course Objective - Vital Signs Vital signs: Vital Signs Temp 97.6 F 11/09/24 03:47 Pulse 70 11/09/24 03:47 Resp 18 11/09/24 03:47 BP 119/67 11/09/24 03:47 Pulse Ox 98 11/09/24 07:43 FiO2 Intake & Output 0411/09/24 11/09/24 18:59 06:59 18:59 Output Total 700 Balance -700 Weight 126.099 kg Output: Urine 700 Other: Voiding Method External Catheter # Voids 1 - Labs CBC & Chem 7: 11/09/24 02:42 11/09/24 02:42 Labs: Abnormal Lab Results - Last 24 Hours (Table) 11/08/24 11/08/24 11/08/24 Range/Units 11:38 12:25 13:30 WBC (4.50-10.00) 10*3/uL RBC (4.40-5.60) 10*6/uL Hgb (13.0-17.0) g/dL Hct (39.6-50.0) % Immature Gran # (0.00-0.04) 10*3/uL Lymphocytes # (Manual) (1.0-4.8) k/uL Sodium (137-145) mmol/L Chloride (98-107) mmol/L Carbon Dioxide (22-30) mmol/L Creatinine (0.66-1.25) mg/dL Glucose (74-99) mg/dL POC Glucose (mg/dL) 232 H 217 H (70-110) mg/dL Ur Random Sodium 29 L (40-220) mmol/L 11/08/24 11/09/24 11/09/24 Range/Units 21:32 02:42 02:42 WBC 63.69 H* (4.50-10.00) 10*3/uL RBC 4.12 L (4.40-5.60) 10*6/uL Hgb 12.3 L (13.0-17.0) g/dL Hct 38.4 L (39.6-50.0) % Immature Gran # 0.19 H (0.00-0.04) 10*3/uL Lymphocytes # (Manual) 58.59 H (1.0-4.8) k/uL Sodium 133 L (137-145) mmol/L Chloride 94 L (98-107) mmol/L Carbon Dioxide 33 H (22-30) mmol/L Creatinine 0.58 L (0.66-1.25) mg/dL Glucose 123 H (74-99) mg/dL POC Glucose (mg/dL) 126 H (70-110) mg/dL Ur Random Sodium (40-220) mmol/L 11/09/24 Range/Units 06:41 WBC (4.50-10.00) 10*3/uL RBC (4.40-5.60) 10*6/uL Hgb (13.0-17.0) g/dL Hct (39.6-50.0) % Immature Gran # (0.00-0.04) 10*3/uL Lymphocytes # (Manual) (1.0-4.8) k/uL Sodium (137-145) mmol/L Chloride (98-107) mmol/L Carbon Dioxide (22-30) mmol/L Creatinine (0.66-1.25) mg/dL Glucose (74-99) mg/dL POC Glucose (mg/dL) 145 H (70-110) mg/dL Ur Random Sodium (40-220) mmol/L Microbiology - Last 24 Hours (Table) 11/07/24 19:19 Blood Culture - Preliminary Blood
[2024-11-09 11:18] LABS: Glucose,Whole Blood 143 mg/dL (70-110)
[2024-11-09] MEDS: ALPRAZolam 0.25 MG TAB PO PRN (11:47)
[2024-11-09 16:34] LABS: Glucose,Whole Blood 153 mg/dL (70-110)
[2024-11-09 19:35] LABS: Glucose,Whole Blood 120 mg/dL (70-110)
[2024-11-09] MEDS: INSULIN GLARGINE (LANTUS) 100 UNIT/ML SYR SQ SCH (20:15)
[2024-11-10 06:28] LABS: Glucose,Whole Blood 132 mg/dL (70-110)
[2024-11-10] MEDS: ZINC OXIDE PASTE (Z-GUARD) 1 APPLIC TOPICAL PRN (08:58)
[2024-11-10 10:56] LABS: Glucose,Whole Blood 170 mg/dL (70-110)
--- NOTE | 2024-11-10 11:31 | P.CONS ---
History of Present Illness - Reason for Consult Consult date: 11/10/24 wound care - History of Present Illness This is a 69-year-old patient being seen on for open ulceration to the left anterior lower extremity and excoriation on the left and right buttocks. Patient has more excoriation and abrasions noted to the left buttocks. At this time zinc is in place. Left anterior lower extremity has a cluster of 2 open ulcerations with slough and nonviable tissue present wound edges are attached to the wound base no tunneling or undermining noted. The wounds measure approximately 1 x 1 x 0.2 cm granulation seen throughout the wound bed. Patient states that he spends the majority of his time sitting in a chair with his legs down. Patient does have dry flaky skin to bilateral lower extremities with edema noted. Patient's past medical history significant for diabetes, GERD, hypertension, BPH, sleep apnea. Review Of Systems: Constitutional: No fever, no chills, no night sweats. No weight change. No weakness, fatigue or lethargy. No daytime sleepiness. Integumentary:reports wounds, no lesions. No rash or pruritus. No unusual bruising. No change in hair or nails. Physical exam: General Appearance: Alert, cooperative, no distress, appears stated age. Skin: See HPI all other Skin color, texture, tugor normal, no rashes or lesions. Neurologic: Alert oriented x3 Assessment: 1. Stage I pressure ulcer right buttocks 2. Stage II pressure ulcer left buttocks 3. Nonhealing ulceration other site left lower extremity with fat layer exposure 4. Chronic venous hypertension with inflammation and ulceration left lower extremity Plan: 1. Apply zinc barrier cream to sacrum daily. Turn patient every 2 hours. 2. Left lower extremity ulceration: Apply honey gel dry gauze rolled gauze and secure with paper tape. Wrap with Richard wrap. 3. Right lower extremity: Apply Richard wrap. 4. Encourage patient to elevate legs 30 minutes 3 times a day. Avoid sitting with legs dependent. Thank you for the consultation any questions please contact the wound care center. DNP note has been reviewed and discussed with Dr. Andersen and the impression and plan of care has been directed as dictated. Past Medical History Past Medical History: Cancer, Diabetes Mellitus, GERD/Reflux, Hypertension, Osteoarthritis (OA), Prostate Disorder, Skin Disorder, Sleep Apnea/CPAP/BIPAP Additional Past Medical History / Comment(s): CHRONIC LYMPHOCYTIC LEUKEMIA-dx. >10 yrs. ago-currently has elevated WBC he thinks related to his leukemia, BACK AND HIP PAIN, FREQUENT URINATION/urgency, SOB w/exertion, hx gout, SPINAL S TENOSIS, BILATERAL LEG CELLULITIS-not weeping currently, uses CPAP, hx. colon polyps, umbilica hernia History of Any Multi-Drug Resistant Organisms: None Reported Past Surgical History: Joint Replacement Additional Past Surgical History / Comment(s): left hip replacement,. COLONOSCOPY Past Anesthesia/Blood Transfusion Reactions: No Reported Reaction Past Psychological History: Depression Smoking Status: Vaper Past Alcohol Use History: None Reported Additional Past Alcohol Use History / Comment(s): SMOKES e-cig daily, occasional cigars,. STARTED SMOKING AGE 16. quit cigarettes 2-3 yrs ago Past Drug Use History: None Reported Additional Drug Use History / Comment(s): OCCASIONALLY SMOKES MARIJUANA few times per week - Past Family History Father Family Medical History: Coronary Artery Disease (CAD) Mother Family Medical History: No Reported History Medications and Allergies Home Medications Medication Instructions Recorded Confirmed Type ARIPiprazole [Abilify] 2.5 mg PO DAILY 08/03/15 11/07/24 History INSULIN ASPART (NovoLOG) [NovoLOG 35 unit SQ TID-W/MEALS 08/05/18 11/07/24 History (formulary)] Insulin Glargine (Lantus) [Lantus 48 unit SQ BID 08/05/18 11/07/24 History Vial] Finasteride [Proscar] 5 mg PO DAILY 10/17/21 11/07/24 History Gabapentin [Neurontin] 600 mg PO TID 10/17/21 11/07/24 History Atorvastatin [Lipitor] 20 mg PO HS 11/07/24 11/07/24 History Escitalopram [Lexapro] 20 mg PO DAILY 11/07/24 11/07/24 History Loperamide [Imodium] 2 mg PO Q4H PRN 11/07/24 11/07/24 History Multivitamins, Thera [Multivitamin 1 tab PO DAILY 11/07/24 11/07/24 History (formulary)] SITagliptin [Zituvio] 100 mg PO DAILY 11/07/24 11/07/24 History Tamsulosin HCl [Flomax] 0.4 mg PO DAILY 11/07/24 11/07/24 History Vitamin E (Dl,Tocopheryl Acet) 90 mg PO DAILY 11/07/24 11/07/24 History [Vitamin E (100 Iu = 45MG)] Allergies Allergy/AdvReac Type Severity Reaction Status Date / Time metformin AdvReac Unknown Abdominal Verified 11/07/24 17:31 Pain and Nausea metformin HCl AdvReac Unknown Abdominal Verified 11/07/24 17:31 [From Glucophage] Pain and Nausea Physical Exam Vitals: Vital Signs Temp Pulse Pulse Resp BP BP Pulse Ox 11/10/24 09:33 72 16 11/10/24 07:46 97.8 F 72 16 108/61 95 11/10/24 04:00 97.9 F 82 18 137/57 99 11/10/24 00:16 69 130/64 98 11/09/24 19:40 97.9 F 85 16 121/59 98 11/09/24 15:20 98 F 85 16 131/69 98 11/09/24 13:41 80 20 11/09/24 12:49 96 Intake and Output 11/09/24 11/10/24 11/10/24 22:59 06:59 14:59 Intake Total 100 200 Output Total 1000 500 Balance 100 -1000 -300 Intake: Oral 100 200 Output: Urine 1000 500 Other: Voiding Method External Catheter External Catheter Results CBC & Chem 7: 11/09/24 02:42 11/09/24 02:42 Labs: Abnormal Lab Results - Last 24 Hours (Table) 11/09/24 11/09/24 11/10/24 Range/Units 16:32 19:34 06:18 POC Glucose (mg/dL) 153 H 120 H 132 H (70-110) mg/dL 11/10/24 Range/Units 10:55 POC Glucose (mg/dL) 170 H (70-110) mg/dL Microbiology - Last 24 Hours (Table) 11/07/24 19:19 Blood Culture - Preliminary Blood Assessment and Plan (1) Pressure injury of left buttock, stage 2 Current Visit: Yes Status: Acute Code(s): L89.322 - PRESSURE ULCER OF LEFT BUTTOCK, STAGE 2 SNOMED Code(s): 36530120313799 (2) Pressure injury of right buttock, stage 1 Current Visit: Yes Status: Acute Code(s): L89.311 - PRESSURE ULCER OF RIGHT BUTTOCK, STAGE 1 SNOMED Code(s): 28752624705532 (3) Non-pressure chronic ulcer of other part of left lower leg with fat layer exposed Current Visit: Yes Status: Acute Code(s): L97.822 - NON-PRS CHRONIC ULCER OTH PRT L LOW LEG W FAT LAYER EXPOSED SNOMED Code(s): 80209271954489664 (4) Type 2 diabetes mellitus with other skin ulcer Current Visit: Yes Status: Acute Code(s): E11.622 - TYPE 2 DIABETES MELLITUS WITH OTHER SKIN ULCER; L98.499 - NON-PRESSURE CHRONIC ULCER OF SKIN OF SITES W UNSP SEVERITY SNOMED Code(s): 240705691897647 (5) Venous stasis ulcer of lower extremity Current Visit: No Status: Acute Code(s): I83.009 - VARICOSE VEINS OF UNSP LOWER EXTREMITY W ULCER OF UNSP SITE; L97.909 - NON-PRS CHRONIC ULC UNSP PRT OF UNSP LOW LEG W UNSP SEVERITY SNOMED Code(s): 1607988345
[2024-11-10 11:44] VITALS: BMI 39.9
--- NOTE | 2024-11-10 15:01 | P.PN ---
Subjective Progress Note Date: 11/10/24 History of present illness; 69-year-old man with PMH of CLL (follows with Dr. Vasquez), diabetes mellitus, A fib maintained on eliquis, ABIMBOLA maintained on CPAP and venous insufficiency. He presented to the emergency department after suffering a fall earlier this morning. He notes that he has been feeling weaker for the past little while now, however had not acted on it. This morning he was with an aide at his home and he got up to go to the bathroom, he bumped into the aide and then fell to the floor. He states that he fell to his knees and then slowly fell to the ground, stating that he did not lose consciousness or hit his head. He also notes that he has been having worsening shortness of breath when lying flat, or reclined in his chair. He describes feeling as though he is unable to catch his breath when he leans back. He does note that with his history of CLL he follows with Dr. Vasquez, however they have just been monitoring his blood counts and he has never been treated for it at any time. He is WBCs are generally close to 70,000 on average. Additionally, he has chronic lower leg wounds, which he feels have been improving, however are quite prominent, he does not follow with wound care regularly. He denies any fever, chills, chest pain, palpitations, any changes in appetite, weight loss, change in bowel movement or urinary habits. 11/08 - He is seen and examined at bedside this morning, remaining in the ED. no acute events overnight, no acute complaints this morning. 11/09 - He is seen and examined at bedside this morning. No acute events overnight, no acute complaints this morning. Will be seen and evaluated by physical therapy today. Working with case management for discharge to subacute rehab facility. REVIEW OF SYSTEMS: Pertinent positives and negatives noted in HPI. Physical Exam: General: nontoxic, no distress, appears at stated age Derm: warm, dry, intact Head: atraumatic, normocephalic, symmetric Eyes: EOMI, anicteric sclera Mouth: no lip lesion, mucus membranes moist Cardiovascular: S1 S2 reg, no murmur, rubs, or gallops Lungs: CTA bilateral, no rales, no accessory muscle use Abdominal: soft, non-tender to palpataion, no appreciable organomegaly Extremities: no gross muscle atrophy, no edema, no contractures; bilateral lower extremity wounds, mostly healed over at this time, no active weeping noted Neuro: Alert, Oriented, CNII-XII grossly intact, gait normal Psych: well appearing, appropriate affect Data Received Today: Labs: No new labs today Imagining: No new imaging today Assessment and plan 69-year-old man with PMH of CLL (follows with Dr. Vasquez), diabetes mellitus, A fib maintained on eliquis, ABIMBOLA maintained on CPAP and venous insufficiency. He presented to the emergency department after suffering a fall earlier this morning. He notes that he has been feeling weaker for the past little while now, however had not acted on it. #Debility #Generalized weakness #NSTEMI, likely type II -Echocardiogram ordered, currently pending -Continue with Aspirin 81 mg daily and Lipitor 40 mg nightly -TSH and vitamin B12 within normal limits -PT and OT consulted -Cardiac monitoring -Fall precaution #Hyponatremia, likely euvolemic -Hold IV fluids -Currently stable #Severe leukocytosis #CLL, currently stable -Follows with Dr. Vaqsuez -Cultures negative to this point #A Fib, maintained on eliquis -Continue with Eliquis 5 mg twice daily and Metoprolol 20 mg twice daily -Cardiac monitoring -Fall precautions #Diabetes mellitus -Hold oral medications -Accu-Cheks -Continue sliding scale ACHS -3 unit Humalog AC 3 times daily -Continue home Lantus 48 units twice daily -Monitor for hypoglycemia -Hemoglobin A1c 10 #ABIMBOLA, maintained on CPAP every night -CPAP ventilatory support ordered for every night #Bilateral lower extremity venous insufficiency #Venous stasis dermatitis -Wound care consulted Chronic conditions: #BPH #Anxiety/depression -Continue home medications DVT ppx: 5 mg twice daily Code status: Full code F: None E: Replete as needed N: Heart healthy diet A: Limited ambulation at baseline Anticipated discharge place: Subacute rehab Anticipated discharge time: Tomorrow Dictation was produced using [employer] dictation software. please excuse any grammatical, word or spelling errors. Mauricio Mon MD PGY-1 IM I have seen and evaluated the patient today. Discussed with the resident and agree with the residents finding and plan as documented in the resident's note. Changes highlighted in blue font. Objective - Vital Signs Vital signs: Vital Signs Temp 97.9 F 11/10/24 04:00 Pulse 82 11/10/24 04:00 Resp 18 11/10/24 04:00 BP 137/57 11/10/24 04:00 Pulse Ox 99 11/10/24 04:00 FiO2 Intake & Output 11/09/24 11/10/24 11/10/24 18:59 06:59 18:59 Intake Total 200 Output Total 1400 1000 Balance -1200 -1000 Intake: Oral 200 Output: Urine 1400 1000 Other: Voiding Method External Catheter External Catheter # Voids 1 - Labs CBC & Chem 7: 11/09/24 02:42 11/09/24 02:42 Labs: Abnormal Lab Results - Last 24 Hours (Table) 11/08/24 11/09/24 11/09/24 Range/Units 13:30 11:17 16:32 POC Glucose (mg/dL) 143 H 153 H (70-110) mg/dL Ur Random Sodium 29 L (40-220) mmol/L 11/09/24 11/10/24 Range/Units 19:34 06:18 POC Glucose (mg/dL) 120 H 132 H (70-110) mg/dL Ur Random Sodium (40-220) mmol/L Microbiology - Last 24 Hours (Table) 11/07/24 19:19 Blood Culture - Preliminary Blood
[2024-11-10 16:53] LABS: Glucose,Whole Blood 151 mg/dL (70-110)
[2024-11-10 19:47] LABS: Glucose,Whole Blood 175 mg/dL (70-110)
[2024-11-11 06:29] LABS: Glucose,Whole Blood 120 mg/dL (70-110)
[2024-11-11 08:47] LABS: Lymphocytes # (M) 65.58 k/uL (1.0-4.8); Monocytes # (M) 0.73 k/uL (0-1.0); Neutrophils # (M) 6.56 k/uL (1.3-7.7); WBC 72.87 10*3/uL (4.50-10.00)
[2024-11-11] MEDS: ZINC OXIDE PASTE (Z-GUARD) 1 APPLIC TOPICAL SCH (09:40)
--- NOTE | 2024-11-11 10:23 | CA ---
Transthoracic Echo Report Name: Richard Sylvester Age: 69 Gender: M : 1955 Exam Date: 11/10/2024 14:36 Exam Location: [facility] Ht (in): 70 Wt (lb): 278 Ordering Physician: Deion Mon MD Attending/Referring Phys: [employer] Jennifer Villegas RDCS Procedure CPT: Indications: possible NSTEMI Cardiac Hx: DM Technical Quality: Fair Contrast 1: Definity Total Dose (mL): 2 Contrast 2: Total Dose (mL): MEASUREMENTS (Male / Female) Normal Values 2D ECHO LV Diastolic Diameter PLAX 5.4 cm 4.2 - 5.9 / 3.9 - 5.3 cm LV Systolic Diameter PLAX 3.3 cm IVS Diastolic Thickness 1.2 cm 0.6 - 1.0 / 0.6 - 0.9 cm LVPW Diastolic Thickness 1.2 cm 0.6 - 1.0 / 0.6 - 0.9 cm LV Relative Wall Thickness 0.4 RV Internal Dim ED PLAX 3.1 cm LA Systolic Diameter LX 5.1 cm 3.0 - 4.0 / 2.7 - 3.8 cm LV Diastolic Volume MOD BP 104.0 cm??? 67 - 155 / 56 - 104 cm??? LV Systolic Volume MOD BP 40.0 cm??? 22 - 58 / 19 - 49 cm??? LV Ejection Fraction MOD BP 61.6 % >= 55 % LV Cardiac Index MOD BP 1556.2 cm???/min???m??? LV Diastolic Volume MOD 4C 103.6 cm??? LV Systolic Volume MOD 4C 48.4 cm??? LV Ejection Fraction MOD 4C 53.3 % LV Cardiac Index MOD 4C 1341.7 cm???/min???m??? LV Diastolic Length 4C 7.8 cm LV Systolic Length 4C 6.7 cm LV Diastolic Volume MOD 2C 87.4 cm??? LV Systolic Volume MOD 2C 33.5 cm??? LV Ejection Fraction MOD 2C 61.7 % LV Cardiac Index MOD 2C 1311.2 cm???/min???m??? LV Diastolic Length 2C 7.8 cm LV Systolic Length 2C 6.7 cm M-MODE Aortic Root Diameter MM 3.4 cm DOPPLER TR Peak Velocity 278.7 cm/s TR Peak Gradient 31.1 mmHg Right Ventricular Systolic Press 41.1 mmHg FINDINGS Left Ventricle Left ventricular ejection fraction is estimated at 55-60 %. Mildly increased septal wall thickness. Mild concentric left ventricular hypertrophy. No obvious regional wall motion abnormalities. Right Ventricle Normal right ventricular size. Mild pulmonary hypertension. Right Atrium Right atrium not well visualized. No right atrial thrombus or mass seen. Left Atrium Mild increased left atrial diameter. No left atrial thrombus or mass present. Mitral Valve Mild thickening/calcification of the anterior mitral valve leaflet. Mild thickening/calcification of the posterior mitral valve leaflet. Mitral annular calcification. Trace to mild mitral regurgitation. Aortic Valve Trileaflet aortic valve. Aortic valve sclerosis. No aortic valve stenosis or regurgitation. Tricuspid Valve Structurally normal tricuspid valve. Mild tricuspid regurgitation. Pulmonic Valve Structurally normal pulmonic valve. Trace pulmonic regurgitation. Pericardium No pericardial effusion. Aorta Normal size aortic root and proximal ascending aorta. CONCLUSIONS Left ventricular ejection fraction is estimated at 55-60 %. No obvious regional wall motion abnormalities. Normal right ventricular size and function Mild LA dilatation Mild MR, mitral annular calcification Aortic valve sclerosis Previewed by: Dr Campos Overton (Electronically Signed) Final Date: 11 November 2024 10:22
--- NOTE | 2024-11-11 11:10 | P.DS ---
Providers Date of admission: 11/07/24 17:19 Expected date of discharge: 11/11/24 Attending physician: Terence Márquez Primary care physician: Tapan Escobar Hospital Course: Discharge diagnoses; #Debility #Generalized weakness #NSTEMI, likely type II #Hyponatremia, likely euvolemic #Severe leukocytosis #CLL, currently stable #A Fib, maintained on eliquis #Diabetes mellitus #ABIMBOLA, maintained on CPAP every night #Bilateral lower extremity venous insufficiency #Venous stasis dermatitis Hospital course; 69-year-old man with PMH of CLL (follows with Dr. Vasquez), diabetes mellitus, A fib maintained on eliquis, ABIMBOLA maintained on CPAP and venous insufficiency. He presented to the emergency department after suffering a fall earlier this morning. He notes that he has been feeling weaker for the past little while now, however had not acted on it. This morning he was with an aide at his home and he got up to go to the bathroom, he bumped into the aide and then fell to the floor. He states that he fell to his knees and then slowly fell to the ground, stating that he did not lose consciousness or hit his head. He also notes that he has been having worsening shortness of breath when lying flat, or reclined in his chair. During his stay he underwent chest x-ray which showed no acute cardiopulmonary process. He was seen and evaluated by wound care for his chronic bilateral lower extremity venous insufficiency and venous stasis dermatitis, as well as pressure sores on his buttocks. Echocardiogram showed preserved EF. Seen by physical therapy, recommending subacute rehab. Patient also started on Eliquis and metoprolol. He will follow-up with his PCP. General: nontoxic, no distress, appears at stated age Derm: warm, dry, intact Head: atraumatic, normocephalic, symmetric Eyes: EOMI, anicteric sclera Mouth: no lip lesion, mucus membranes moist Cardiovascular: S1 S2 reg, no murmur, rubs, or gallops Lungs: CTA bilateral, no rales, no accessory muscle use Abdominal: soft, non-tender to palpataion, no appreciable organomegaly Extremities: no gross muscle atrophy, no edema, no contractures; bilateral lower extremity wounds, mostly healed over at this time, no active weeping noted Neuro: Alert, Oriented, CNII-XII grossly intact, gait normal Psych: well appearing, appropriate affect Dictation was produced using [employer] dictation software. please excuse any grammatical, word or spelling errors. Mauricio Mon MD PGY-1 IM A total of 38 minutes of time were spent preparing this complex discharge summary. Patient was discharged on 11/11/2024 at 933. I have seen and evaluated the patient today. Discussed with the resident and agree with the residents finding and plan as documented in the resident's note. Changes highlighted in blue font. Patient Condition at Discharge: Stable Plan - Discharge Summary Discharge Rx Participant: No New Discharge Prescriptions: New Apixaban [Eliquis] 5 mg PO BID #0 tab INSULIN LISPRO (HumaLOG) [HumaLOG] 5 unit SQ AC-TID #0 each Metoprolol Tartrate [Lopressor] 25 mg PO BID #0 tab Continue ARIPiprazole [Abilify] 2.5 mg PO DAILY Insulin Glargine (Lantus) [Lantus Vial] 48 unit SQ BID Finasteride [Proscar] 5 mg PO DAILY Tamsulosin HCl [Flomax] 0.4 mg PO DAILY Multivitamins, Thera [Multivitamin (formulary)] 1 tab PO DAILY Escitalopram [Lexapro] 20 mg PO DAILY Atorvastatin [Lipitor] 20 mg PO HS Vitamin E (Dl,Tocopheryl Acet) [Vitamin E (100 Iu = 45MG)] 90 mg PO DAILY Gabapentin [Neurontin] 600 mg PO TID SITagliptin [Zituvio] 100 mg PO DAILY Loperamide [Imodium] 2 mg PO Q4H PRN PRN Reason: Diarrhea Discontinued INSULIN ASPART (NovoLOG) [NovoLOG (formulary)] 35 unit SQ TID-W/MEALS Discharge Medication List ARIPiprazole [Abilify] 2.5 mg PO DAILY 08/03/15 [History] Insulin Glargine (Lantus) [Lantus Vial] 48 unit SQ BID 08/05/18 [History] Finasteride [Proscar] 5 mg PO DAILY 10/17/21 [History] Gabapentin [Neurontin] 600 mg PO TID 10/17/21 [History] Atorvastatin [Lipitor] 20 mg PO HS 11/07/24 [History] Escitalopram [Lexapro] 20 mg PO DAILY 11/07/24 [History] Loperamide [Imodium] 2 mg PO Q4H PRN 11/07/24 [History] Multivitamins, Thera [Multivitamin (formulary)] 1 tab PO DAILY 11/07/24 [History] SITagliptin [Zituvio] 100 mg PO DAILY 11/07/24 [History] Tamsulosin HCl [Flomax] 0.4 mg PO DAILY 11/07/24 [History] Vitamin E (Dl,Tocopheryl Acet) [Vitamin E (100 Iu = 45MG)] 90 mg PO DAILY 11/07/24 [History] Apixaban [Eliquis] 5 mg PO BID #0 tab 11/11/24 [Rx] INSULIN LISPRO (HumaLOG) [HumaLOG] 5 unit SQ AC-TID #0 each 11/11/24 [Rx] Metoprolol Tartrate [Lopressor] 25 mg PO BID #0 tab 11/11/24 [Rx] Follow up Appointment(s)/Referral(s): Tapan Escobar DO [Primary Care Provider] - 1-2 days Activity/Diet/Wound Care/Special Instructions: Please be sure to follow up with your primary care physician within 1 week of discharge. Discharge Disposition: TRANSFER TO SNF/ECF
[2024-11-11 12:03] LABS: Glucose,Whole Blood 151 mg/dL (70-110)
[2024-11-11 12:32] VITALS: BP 120/68; PULSE 75; RESP 16; TEMP 98.6
--- NOTE | 2024-11-17 15:21 | CDI ---
Physicians Documentation Request This Form is Not a Permanent Document in the Medical Record Pt Name: Richard Sylvester MR #: [id number] Payor: COMMER[employer] Unit/Bed: [id number] Adm Date: 11/07/2024 05:19:00 PM Reviewer: Adri Anaya Ext. Query Date: 11/17/24 By submitting this query, we are merely seeking further clarification of documentation to accurately reflect all conditions that you are monitoring, evaluating, treating or that extend the hospitalization or utilize additional resources of care. Please utilize your independent clinical judgment when addressing the question(s) below. Dear Doctor Terence Márquez, Clinical Indicators Mr. Sylvester presented to the ED after suffering a fall, indicating he's been feeling weaker for the past little while. He notes he's been having worsening shortness of breath and describes feeling as though he is unable to catch his breath when he leans back. He is diagnosed with debility, hyponatremia and severe leukocytosis. EKG in the ER showed heart rate of 80, no ST segment elevation or depression seen. NSTEMI, likely type II is documented on the H&P, Progress Notes 11/08-11/10 as well as the Discharge Summary. Patient has a history of persistent atrial fibrillation rate controlled on Eliquis. Troponin trend: 0.060 -> 0.075 -> 0.060 The patient has elevated cardiac troponin (cTn) levels and the above clinical indicators. Elevated cardiac troponin levels only (without corresponding diagnosis) PLEASE DOCUMENT ANY ADDITIONAL DIAGNOSES AND/OR SPECIFICITY IN THE PROGRESS NOTES AND/OR DISCHARGE SUMMARY. Agreed & documented Clinically unable to determine/unknown Disagree with the above request Need to discuss MTDD
--- NOTE | 2024-11-25 21:57 | CDI ---
Documentation Clarification Form Date: 11/25/24 From: CHAVO Mclain Admit Date: 11/07/2024 05:19:00 PM Patient Name: Richard Sylvester Visit Number: [id number] Discharge Date: 11/11/2024 01:48:00 PM ATTENTION: The Clinical Documentation Specialists (CDI) and [facility] Coding Staff appreciate your assistance in clarifying documentation. Please respond to the clarification below the line at the bottom and electronically sign. The CDI & [facility] Coding staff will review the response and follow-up if needed. Please note: Queries are made part of the Legal Health Record. If you have any questions, please contact the author of this message via ITS. Doctor/Provider: Terence Márquez NSTEMI, likely Type II NM is documented in progress notes 11/07-11/10 and the discharge summary which may lack sufficient clinical evidence/support in the medical record. Additional clarification is requested. Patient history/risk factors: Patient presented to the ED after suffering a fall. He states that he fell to his knees and then slowly fell to the ground, stating that he did not lose consciousness or hit his head. States he's been feeling weaker, noted worsening shortness of breath when laying flat or reclined in his chair. He has a cardiac history of atrial fibrillation maintained on Eliquis and Metoprolol. Chest x ray showed no acute cardiopulmonary process. Clinical indicators: Troponin trend: 0.060 > 0.075 . 0.[address] segment elevation or depression, no T wave inversions seen, heart rate of 80 Echo showed EF 55-60%, no obvious regional wall motion abnormalities, preserved EF Treatment: Aspirin, Lipitor, cardiac monitoring After work up and study, please which diagnosis is most appropriate? [ ] Type II NM is a valid diagnosis as evidenced by the following: [ ] Type II NM ruled out [ ] Elevated troponin due to acute myocardial injury without myocardial infarction [ x ] Elevated troponin due to chronic myocardial injury without myocardial infarction [ ] Other, please specify [ ] Unable to determine Reference: [employer] Fourth [place] Definition of Myocardial Infraction Type II NM is indicated when an acute myocardial injury in the setting of an abnormal troponin with a rise and fall and clinical indicators suggestive of an imbalance between myocardial oxygen supply demand with acute myocardial ischemia unrelated to coronary thrombosis as evidenced by one of the following: Symptoms of myocardial ischemia New ischemic ECG changes Development of pathological Q waves Imaging evidence of new loss of viable myocardium or new regional wall motion abnormality in a pattern consistent with an ischemic etiology (Template Last Revised: July 2023) MTDD
== END 2024-11-11 13:48 | DRG 641 ==
LOC: EC 13:49 → 3SCARD 17:18 → OBSVTOIN 17:19 → 3SCARD 20:18 → 4SSUR 11-08 16:25 → 1SOBS 11-08 16:50
PROVIDERS: ADMIT Student in an Organized Health Care Education/Training Program; ATTEND Student in an Organized Health Care Education/Training Program
DX: E87.1 Hypo-osmolality and hyponatremia (principal); L89.322 Pressure ulcer of left buttock, stage 2; I5A Non-ischemic myocardial injury (non-traumatic); C91.10 Chronic lymphocytic leukemia of B-cell type not having achieved remission; I87.332 Chronic venous hypertension (idiopathic) with ulcer and inflammation of left lower extremity; E11.40 Type 2 diabetes mellitus with diabetic neuropathy, unspecified; I10 Essential (primary) hypertension; F32.A Depression, unspecified; L97.822 Non-pressure chronic ulcer of other part of left lower leg with fat layer exposed; I48.19 Other persistent atrial fibrillation; Z79.4 Long term (current) use of insulin; E11.622 Type 2 diabetes mellitus with other skin ulcer; L89.311 Pressure ulcer of right buttock, stage 1; G47.33 Obstructive sleep apnea (adult) (pediatric); R53.81 Other malaise; N40.0 Benign prostatic hyperplasia without lower urinary tract symptoms; W18.30XA Fall on same level, unspecified, initial encounter; F41.9 Anxiety disorder, unspecified; I87.2 Venous insufficiency (chronic) (peripheral); Z79.01 Long term (current) use of anticoagulants; Z79.82 Long term (current) use of aspirin; Z79.899 Other long term (current) drug therapy
CPT/HCPCS: 36415; 71046; 80048; 80053; 81001; 82607; 83036; 83735; 83930; 83935; 84300; 84443; 84484; 85025; 85610; 85730; 87040; 87636; 93005; 93306; 94760; 96365; 96375; 99285